=== PATIENT | female | born 1930 | race Caucasian/White ===

== ENCOUNTER 2016-12-03 18:12 | Inpatient (IN) | payer MEDICARE ==
[~2016-12-03] VITALS: Ht 160 cm; Wt 62.6 kg
[~2016-12-03 18:12] MED LIST: ACET325T9 PO; ALEVE; ARICEPT; ASPI325T8 PO; ATOR10TA PO; BISA10SU55 RC; CAPS42.510 TP; CELEXA PO; CITA20TA5 PO; CITA20TA9 PO; CLOB15CR TP; CLOB30CR TP; DOCU100C28 PO; ERYT1OIN6 OU; FLUC100T4 PO; GUAI600T47 PO; HALO100A2 IM; HALO2ORA IM; HALO2TAB PO; HALO5VIA2 IJ; IPRA3AMP IH; LEVO500T59 PO; LORA0.5T PO; LORA2DIS2 TP; LORAZEPAM TOP; LOSA100T6 PO; LOSA25TA PO; LOSA50TA2 PO; LOSA50TA6 PO; MAG30ORA PO; MAG355OR30 PO; MAGN2400 PO; METH29OI TP; MIRT15TA3 PO; MORP20SY SL; NA P133E6 RC; NAPR500T8 PO; NYST15PO9 TP; OLAN2.5T3 PO; ONDA4TAB7 PO; OSEL30CA PO; OXYC-327 PO; POLY119P4 PO; POTA20TA12 PO; POTA20TA4 PO; PRAVASTATIN; PROM25SU2 RC; QUET25TA PO; RISP0.5T3 PO; RIVA1PAT23 TP; RIVA3CAP2 PO; TOLT4CAP PO; VENL150C PO; [UNRECOGNIZED DRUG - OTHER] RC; [UNRECOGNIZED DRUG - OTHER] TOP; [UNRECOGNIZED DRUG - REMARK]
[2016-12-03] MEDS ORDERED: HALOPERIDOL LACT 5 MG/ML VIAL. IM ONE (18:50)
--- NOTE | 2016-12-03 18:52 | PHYS DOC ---
General Chief Complaint: ALTERED MENTAL STATUS Stated Complaint: [facility] Time Seen by MD: 18:19 Source: patient, half-way records Exam Limitations: clinical condition Problems: History of Present Illness Initial Comments Pt is 86/F h/o psychosis/dementia to ED for medical clearance and [facility] admission. [place] records indicate pt recently yelling, hitting, pinching, scratching at staff/ other residents and herself. Pt sx worsening past week or so, resistant to redirection/treatments. [facility] records indicate pt proposes possible risk to herself and others and is an elopement risk. DNR noted. Pt uncooperative in ED yelling out will not allow vital signs or submit specimens initially. Timing/Duration: 1 week, getting worse Severity: severe Modifying Factors: improves with other Associated Symptoms: denies symptoms Allergies: Coded Allergies: Tetracycline (Verified Allergy, Intermediate, 05/21/14) sulfamethoxazole (Verified Allergy, Intermediate, 05/21/14) trimethoprim (Verified Allergy, Intermediate, 05/21/14) Past Medical History Medical History: other (depression with psychotic features, grief reaction, alzheimer's, vascular dementia, delulsions, HTN, macular degeneration, GRAND TRAVERSE, OA, CKD, lichen sclerosis vulva, impulse control, anxiety, gait disturbance) Surgical History: noncontributory Social History Smoker: non-smoker Alcohol: none Drugs: none Review of Systems All Other Systems: Reviewed and Negative (See HPI, pt uncooperative requiring haldol no reliable complete ROS in ED) Physical Exam General Appearance: mild distress (anxious, agitated, yelling out) Eyes: bilateral eye normal inspection, bilateral eye PERRL, bilateral eye EOMI Ear, Nose, Throat: normal ENT inspection (GRAND TRAVERSE), normal pharynx Neck: non-tender, supple Respiratory: normal breath sounds, no respiratory distress Cardiovascular: normal peripheral pulses, regular rate, rhythm Gastrointestinal: non tender, soft Back: no CVA tenderness, no vertebral tenderness Extremities: non-tender, normal inspection Neurologic/Psychiatric: final armature tester II-XII nml as tested, no motor/sensory deficits, alert, other (confused/agitated, noncooperative) Skin: normal color, warm/dry Orders, Labs, Meds EKG not completed in ED due to pt noncompliance initially. Haldol 5mg IM, pt did over an hour relax and begin to allow VS/labs. Pt will have prolonged ED course due to compliance initially, lab delay as well. Labs unremarkable Cr 1.2 UA pending 2042: Pt medically stable for [facility] admission Dr Levi is accepting. Departure Time of Disposition: 20:42 Disposition: 09 ADMITTED INPATIENT Diagnosis: dementia w/behavior disturbance Condition: STABLE Additional Instructions: Medically stable for [facility] admission Dr Levi is accepting. JOSEPHINE AMIN DO December 03, 2016 18:52
[2016-12-03 20:15] LABS: BASO # 0.1 x10^3/uL (0.0-0.2); BASO % 1 % (0-3); EOS # 0.1 x10^3/uL (0.0-0.7); EOS % 1 % (0-3); HEMOGLOBIN 13.2 g/dL (12.0-15.5); LYMPH # 2.2 x10^3/uL (1.0-4.8); LYMPH % 30 % (24-48); MEAN CORPUSCULAR HEMOGLOBIN 30 pg (25-35); MEAN CORPUSCULAR HGB CONC 34 g/dL (31-37); MEAN CORPUSCULAR VOLUME 90 fL (79-100); MONO # 0.6 x10^3/uL (0.0-1.1); MONO % 8 % (0-9); NEUT # 4.5 x10^3uL (1.8-7.7); NEUT % 60 % (31-73); PLATELET COUNT 278 x10^3/uL (140-400); RED BLOOD COUNT 4.35 x10^6/uL (3.50-5.40); RED CELL DISTRIBUTION WIDTH 13.6 % (11.5-14.5); WHITE BLOOD COUNT 7.5 x10^3/uL (4.0-11.0)
[2016-12-03 20:22] LABS: ALBUMIN 3.3 g/dL (3.4-5.0); ALBUMIN/GLOBULIN RATIO 1.1 (1.0-1.7); CREATININE 1.2 mg/dL (0.6-1.0); GFR 42.4; MAGNESIUM 1.9 mg/dL (1.8-2.4); POTASSIUM 3.7 mmol/L (3.5-5.1); TOTAL BILIRUBIN 0.5 mg/dL (0.2-1.0); TOTAL PROTEIN 6.4 g/dL (6.4-8.2)
[2016-12-03 20:52] LABS: BILIRUBIN,URINE NEG (NEG); CLARITY,URINE CLEAR; COLOR,URINE YELLOW; GLUCOSE,URINE NEG (NEG)
[2016-12-03 20:53] LABS: BACTERIA,URINE 0 /HPF (0-FEW); NITRITE,URINE NEG (NEG); SQUAMOUS EPITHELIAL CELL,UR MOD /LPF; UROBILINOGEN,URINE 1 mg/dL (0.2 mg/dL)
[2016-12-03] MEDS ORDERED: NA P RC (21:25)
[2016-12-03] MEDS ORDERED: NYST15CR TP (21:25)
[2016-12-03] MEDS ORDERED: DEXT1CAP PO (21:25)
[2016-12-03] MEDS ORDERED: OXYC5CAP PO (21:25)
[2016-12-03] MEDS ORDERED: TRAZ50TA15 PO (21:25)
[2016-12-03] MEDS ORDERED: CITA10TA4 PO (21:25)
[2016-12-03] MEDS ORDERED: BUPR150T15 PO (21:25)
[2016-12-03] MEDS ORDERED: OLAN5TAB5 PO (21:25)
[2016-12-03] MEDS ORDERED: OXYC5TAB PO (21:25)
[2016-12-03] MEDS ORDERED: POLY119P4 PO (21:25)
[2016-12-03] MEDS ORDERED: LOPE2TAB56 PO (21:25)
[2016-12-03] MEDS: MIRTAZAPINE 15 MG TABLET PO SCH (22:13)
[2016-12-03] MEDS: DEXTROMETHORPHAN HBR/QUINIDINE 1 CAPSULE. PO SCH (22:13)
[2016-12-04 05:44] VITALS: BP 140/90
[2016-12-04] MEDS ORDERED: ONDANSETRON ODT 4 MG TAB.RAPDIS PO PRN (06:45)
[2016-12-04] MEDS ORDERED: CAPSAICIN 0.025% TOPICAL CREAM 60GM TUBE. TP PRN (06:45)
[2016-12-04] MEDS ORDERED: MAGNESIUM HYDROXIDE 2,400 MG/30 ML ORAL.SUSP. PO PRN (06:45)
[2016-12-04] MEDS ORDERED: METHYL SALICYLATE/MENTHOL TOPICAL OINTMENT 29GM TUBE. TP PRN (06:45)
[2016-12-04] MEDS ORDERED: LORazepam TOPICAL 0.5 MG/ML GEL TP PRN (06:45)
[2016-12-04] MEDS ORDERED: oxyCODONE IR 5 MG TABLET PO PRN (06:45)
[2016-12-04] MEDS ORDERED: LOPERAMIDE 2 MG CAPSULE PO PRN (06:45)
--- NOTE | 2016-12-04 08:31 | ACF ---
Admission Criteria Forms MENTAL STATUS CHANGE Clinical Indications for Inpatient Care (Place 'X' for any and all applicable criteria): Ongoing inpatient care may be needed for 1 or more of the following(1)(2)(3)(5)( 6): [ ]I. Suspected serious etiology (eg, medical disorder, PACKING ATTENDANT event) of altered mental status [X]II. Danger to self or others not manageable at lower level of care [ ]III. Grave disability (eg, inability to perform self care necessary at lower level of care) [ ]IV. Agitation or inappropriate behavior interfering with care for primary condition (eg, attempting to discontinue lines or drains prematurely, unable to cooperate with respiratory care) [ ]V. Delirium [A] [D][E] as described by 1 or more of the following(26): [ ]a) Delirium due to alcohol or sedative [F] withdrawal [ ]b) Delirium of uncertain etiology that has not responded to appropriate empiric treatment [ ]c) Delirium that prevents performance of a life-sustaining function (eg, feeding or hydrating oneself) [ ]. General contraindications and/or Inappropriate clinical situations for Observational Care in patients with Mental Status Change, when ANY ONE of the following is required: [ ]a) Prediction of prolongation of LOS based on ANY ONE of the following may be considered as a contraindication for observational care 2, 3, 4, 5, 6, 7, 8, 9, 10, 11 [ ]i) Age > 65 yrs. [ ]ii) Patient arriving by ambulance [ ]iii) Patient with high acuity [ ]iv) Patient requiring vital sign monitoring [ ]v) Patient on IV medication [ ]b) Systolic blood pressures greater than or equal to 180mmHg 3, 12 [ ]c) Patient with altered mental status including delirium and other alteration of consciousness, (3) [ ]d) Patient whose discharge disposition will be to a snf home or rehabilitation home should not be managed in Emergency Department Observation Unit. CMS rule requires 3 days hospital stay before such placement.3,13 [ ]e) Patient with failure to thrive due to broad array of etiologies 3,16,17 [ ]f) Inability to ambulate 3,14 Extended stay beyond goal length of stay for the primary condition may be needed until ALL of the following are present(3)(5): [ ]a) Underlying medical etiology of mental status change is absent, or has been established and adequately treated [ ]b) Danger to self or others is absent or manageable at lower level of care. [ ]c) Behavior crisis management, including physical or chemical restraints, is not required or available at lower level of car [ ]d) Substance or alcohol withdrawal is absent or manageable at lower level of care. [ ]e) Behavioral symptoms (eg, agitation, somnolence, inappropriate behavior) are absent, or are manageable at lower level of care. The original [facility] [employer] content created by [facility] has been revised. The portions of the content which have been revised are identified through the use of italic text or in bold, and [facility] has neither reviewed nor approved the modified material. All other unmodified content is copyright [facility]. Please see references footnoted in the original [facility] edition 2016 Admission Criteria Met?: Yes MATI COSBY December 04, 2016 08:31
[2016-12-04] MEDS ORDERED: CITALOPRAM 10 MG TABLET. PO SCH (09:00)
[2016-12-04] MEDS: POLYETHYLENE GLYCOL 3350 17 GM PACKET. PO SCH (09:28)
[2016-12-04] MEDS: DEXTROMETHORPHAN HBR/QUINIDINE 1 CAPSULE. PO SCH ×2 (09:33→20:26)
[2016-12-04] MEDS: LOSARTAN 50 MG TABLET. PO SCH (09:33)
[2016-12-04] MEDS: buPROPion XL 150 MG TAB.ER.24H PO SCH (09:34)
[2016-12-04] MEDS: oxyCODONE IR 5 MG TABLET PO SCH ×3 (09:34→19:50)
[2016-12-04] MEDS: NYSTATIN 100,000 UNIT/GM TOPICAL CREAM 15GM TUBE. TP SCH ×2 (09:36→22:59)
[2016-12-04] MEDS: BISACODYL 10 MG SUPP.RECT RC SCH (09:37)
[2016-12-04 13:57] LABS: THYROID STIM HORMONE (TSH) 1.429 uIU/mL (0.358-3.740)
--- NOTE | 2016-12-04 15:47 | HP ---
ADMIT DATE: 12/04/2016 REASON FOR ADMISSION TO SENIOR BEHAVIORAL UNIT: This is the sixth admission to the Senior Behavioral Unit for this 86-year-old female who resides at [facility]. Yesterday at lunch, she has became combative with her cares, disruptive, yelling, and hitting whoever came near her so that they could not eat. Dr. Levi was called. She was given Ativan, but was taken to her room and came right back out swinging at people. She also had a dose of Zyprexa. PAST MEDICAL HISTORY: Dementia with behavior disturbance, muscle weakness, macular degeneration with legal blindness, bilateral sensorineural deafness, osteoarthritis, chronic kidney disease, lichen sclerosus ___, depression, anxiety, and dementia. She also had some issues with insomnia. PAST SURGICAL HISTORY: Unknown. ALLERGIES: TETRACYCLINE, SULFAMETHOXAZOLE, AND TRIMETHOPRIM. MEDICATIONS: Reviewed aside from the recent p.r.n. the patient has had no other medication changes. SOCIAL HISTORY: She is a resident of [facility]. No history of smoking, alcohol, or recreational drug use. REVIEW OF SYSTEMS: The patient complains of being tired; otherwise, does not have a whole lot to say. OBJECTIVE: VITAL SIGNS: Blood pressure 140/90, pulse 64, respirations 20, pulse ox 98% on room air, temperature is 97.4, height 63 inches, and weight 136.13 pounds. GENERAL: Elderly female who is sleepy. HEENT: Her hearing is impaired. Her vision also impaired. The vision that she has is blurry and she looks out of the side of her eyes with her head tilted to try to see things. She can identify things after looking at them for a while. Nose is patent. Her throat was clear. NECK: Supple without adenopathy. LUNGS: Clear to auscultation. CARDIOVASCULAR: Regular rhythm and rate with a 2/6 short systolic murmur. ABDOMEN: Soft and nontender. EXTREMITIES: Without edema. She does have a fine tremor of her hands. I could not take her through the cranial nerves because of her vision; at least the vision and hearing are impaired. Overall, muscle tone is weak. SKIN: She has extensive bruising on her arms. LABORATORY DATA: Normal CBC. Chemistry, creatinine 1.2 and GFR 42.4. Normal TSH and iron is 27. Urinalysis 1-4 white cells and contaminated specimen. Mental state is sleepy, but calm and cooperative ASSESSMENT: 1. Dementia with behavior disturbance. 2. Macular degeneration with legal blindness. 3. Significant fall risk. 4. Weakness. 5. Major depressive disorder. 6. Iron deficiency. 7. Chronic kidney disease stage 3. PLAN: Follow along with Dr. Levi. Start her on iron supplements and wait for other results. RAFI NOGUEIRA DO DR: TIFFANIE/amanda JOB#: [id number] / [id number]
[2016-12-04 16:23] VITALS: BP_SYST 116
[2016-12-04] MEDS: PRENATAL MULTIVITAMIN TABLET. PO SCH (16:30)
[2016-12-04 18:08] LABS: T3 TOTAL 98 ng/dL (71-180)
[2016-12-04 19:13] LABS: THYROXINE 6.8 ug/dL (4.5-12.0)
[2016-12-04] MEDS: MIRTAZAPINE 15 MG TABLET PO SCH (19:50)
[2016-12-04] MEDS: DOCUSATE SODIUM 100 MG CAPSULE PO SCH (20:26)
--- NOTE | 2016-12-04 21:07 | PDOC ---
Exam Maxx Demential Exam: Maxx Note: Please also refer to the separate dictated note~for this date of service dictated separately.~Patient seen individually. Discussed the patient with Nursing staff reviewed the chart.~Reviewed interim history and current functioning. Reviewed vital signs,~Labs/ Radiology~and current medications noted below. Continue current treatment with the changes noted in the dictated addendum note Assessment: Vital Signs: Vital Signs Date Time Temp Pulse Resp B/P (MAP) Pulse Ox O2 Delivery O2 Flow Rate FiO2 12/04/16 19:50 20 96 12/04/16 16:23 98.0 79 116/ 12/04/16 09:34 Room Air Labs: Laboratory Tests Test 12/03/16 21:57 Thyroxine (T4) 6.8 ug/dL (4.5-12.0) Total Triiodothyronine (TT3) 98 ng/dL (71-180) RPR Titer Additional Testing Pending Current Medications: Meds: Current Medications Haloperidol Lactate (Haldol) 5 mg 1X ONCE IM Last administered on 12/03/16 18 :56; Start 12/03/16 at 18:50; Stop 12/03/16 at 18:51; Status DC Acetaminophen (Tylenol) 650 mg PRN Q6HRS PRN PO PAIN / TEMP; Start 12/03/16 at 20:45 Bupropion HCl (Wellbutrin Xl) 150 mg DAILY PO Last administered on 12/04/16 09 :34; Start 12/04/16 at 09:00 Citalopram Hydrobromide (CeleXA) 15 mg DAILY PO Last administered on 12/04/16 09:32; Start 12/04/16 at 09:00; Stop 12/04/16 at 17:51; Status DC Mirtazapine (Remeron) 15 mg HS PO Last administered on 12/04/16 19:50; Start 12/03/16 at 22:45 Olanzapine (Zyprexa Zydis) 2.5 mg DAILY PO Last administered on 12/04/16 09:35 ; Start 12/04/16 at 09:00 Trazodone HCl (Desyrel) 50 mg QHS PO ; Start 12/04/16 at 22:45 Olanzapine (Zyprexa Zydis) 5 mg PRN Q2HR PRN PO Psych Last administered on 12/04 18:36; Start 12/03/16 at 22:00 Bisacodyl (Dulcolax Supp) 10 mg Q4DAYS RC Last administered on 12/04/16 09:37 ; Start 12/04/16 at 09:00 Docusate Sodium (Colace) 200 mg HS PO Last administered on 12/04/16 20:26; Start 12/04/16 at 21:00 Losartan Potassium (Cozaar) 50 mg DAILY PO Last administered on 12/04/16 09:33 ; Start 12/04/16 at 09:00 Multi-Ingredient Ointment (Analgesic [place]) 1 mariaa PRN QID PRN TP MUSCLE PAIN; Start 12/04/16 at 06:45 Nystatin (Mycostatin) 1 mariaa BID TP Last administered on 12/04/16 09:36; Start 12/04/16 at 09:00 Nystatin (Nystop) 1 mariaa PRN BID PRN TP SKIN PROTECTION; Start 12/04/16 at 06:45 Oxycodone HCl (Roxicodone) 5 mg TID PO Last administered on 12/04/16 19:50; Start 12/04/16 at 09:00 Polyethylene Glycol (miraLAX) 17 gm DAILY PO Last administered on 12/04/16 09: 28; Start 12/04/16 at 09:00 Capsaicin (Zostrix) 1 mariaa PRN Q8HRS PRN TP PAIN; Start 12/04/16 at 06:45 Loperamide HCl (Imodium) 2 mg PRN Q2HR PRN PO DIARRHEA; Start 12/04/16 at 06:45 Lorazepam (Ativan) 0.5 mg PRN Q2HR PRN TP ANXIETY / AGITATION; Start 12/04/16 at 06:45; Stop 12/04/16 at 13:56; Status DC Magnesium Hydroxide (Milk Of Magnesia) 2,400 mg PRN QHS PRN PO CONSTIPATION; Start 12/04/16 at 06:45 Morphine Sulfate (Roxanol Conc) 10 mg PRN Q4HRS PRN SL PAIN; Start 12/04/16 at 06:45 Ondansetron HCl (Zofran Odt) 4 mg PRN Q4HRS PRN PO NAUSEA; Start 12/04/16 at 06 :45 Oxycodone HCl (Roxicodone) 5 mg PRN TID PRN PO PAIN; Start 12/04/16 at 06:45 Lorazepam (Ativan) 0.5 mg PRN Q2HR PRN TP ANXIETY / AGITATION; Start 12/05/16 at 14:00 Prenat Multivit/ [place]/Iron/Folic Ac (Multivitamin ) 1 tab DAILYBFRSUP PO Last administered on 12/04/16t 16:30; Start 12/04/16 at 17:00 Escitalopram Oxalate (Lexapro) 5 mg DAILY PO ; Start 12/05/16 at 09:00 Active Scripts Active Reported Oxycodone Hcl 5 Mg Capsule 5 Mg PO PRN TID PRN Anti-Diarrhea (Loperamide Hcl) 2 Mg Tablet 2 Mg PO PRN Q2HR PRN Gnp Enema Ready To Use (Na Phos,M-B/Na Phos,Di-Ba) 133 Ml Enema 133 Ml RC PRN DAILY PRN Nystatin 15 Gm Cream..g. 1 Mariaa TP BID Trazodone Hcl 50 Mg Tablet 50 Mg PO QHS Miralax (Polyethylene Glycol 3350) 119 Gm Powder 17 Gm PO DAILY Oxycodone Hcl 5 Mg Tablet 5 Mg PO TID Zyprexa Zydis (Olanzapine) 5 Mg Tab.rapdis 2.5 Mg PO DAILY Nuedexta 20-10 Mg Capsule (Dextromethorphan Hbr/Quinidine) 1 Each Capsule 1 Cap PO BID Citalopram Hbr (Citalopram Hydrobromide) 10 Mg Tablet 15 Mg PO DAILY Wellbutrin Xl (Bupropion Hcl) 150 Mg Tab.er.24h 150 Mg PO DAILY Lorazepam 2 Mg/1 Ml Disp.syrin 0.5 Mg TP PRN Q2HR PRN Morphine Sulfate 20 Mg/1 Ml Syringe 10 Mg SL PRN Q4HRS PRN Dulcolax (Bisacodyl) 10 Mg Supp.rect 10 Mg RC Q4DAYS PRN Nystatin 15 Gm Powder 1 Mariaa TP PRN BID PRN Capsaicin 42.5 Gm Cream..g. 1 Mariaa TP PRN Q8HRS PRN Analgesic [place] (Methyl Salicylate/Menthol) 29 Gm Oint...g. 1 Mariaa TP PRN QID PRN Mirtazapine 15 Mg Tablet 15 Mg PO HS Losartan Potassium 50 Mg Tablet 50 Mg PO DAILY Docusate Sodium 100 Mg Capsule 200 Mg PO HS Milk Of Magnesia (Magnesium Hydroxide) 2,400 Mg/10 Ml Oral.susp 2,400 Mg PO PRN QHS PRN Zofran (Ondansetron Hcl) 4 Mg Tablet 4 Mg PO PRN Q4HRS PRN KISHORE JI MD December 04, 2016 21:07
[2016-12-04] MEDS: traZODone 50 MG TABLET. PO SCH (22:57)
[2016-12-05 02:08] LABS: HEMOGLOBIN A1C 5.3 % (4.8-5.6)
[2016-12-05 06:09] VITALS: BP 136/94
[2016-12-05] MEDS: POLYETHYLENE GLYCOL 3350 17 GM PACKET. PO SCH (08:22)
[2016-12-05] MEDS: buPROPion XL 150 MG TAB.ER.24H PO SCH (08:23)
[2016-12-05] MEDS: oxyCODONE IR 5 MG TABLET PO SCH ×3 (08:24→20:18)
[2016-12-05] MEDS: DEXTROMETHORPHAN HBR/QUINIDINE 1 CAPSULE. PO SCH ×2 (08:25→20:19)
[2016-12-05] MEDS: NYSTATIN 100,000 UNIT/GM TOPICAL CREAM 15GM TUBE. TP SCH ×2 (08:27→20:20)
[2016-12-05] MEDS: ESCITALOPRAM 5 MG TABLET PO SCH (08:28)
[2016-12-05] MEDS: LOSARTAN 50 MG TABLET. PO SCH (08:32)
[2016-12-05] MEDS: BISACODYL 10 MG SUPP.RECT RC SCH (08:33)
[2016-12-05] MEDS: CHOLECALCIFEROL (VITAMIN D3) 1,000 UNIT TABLET PO SCH ×2 (11:40→16:42)
[2016-12-05] MEDS: CYANOCOBALAMIN (VITAMIN B-12) 1,000 MCG TABLET. PO SCH (11:40)
[2016-12-05 16:32] VITALS: BP 135/69
[2016-12-05] MEDS: PRENATAL MULTIVITAMIN TABLET. PO SCH (16:42)
[2016-12-05] MEDS: DOCUSATE SODIUM 100 MG CAPSULE PO SCH (20:18)
[2016-12-05] MEDS: traZODone 50 MG TABLET. PO SCH (20:18)
[2016-12-05] MEDS: MIRTAZAPINE 15 MG TABLET PO SCH (20:18)
--- NOTE | 2016-12-05 20:56 | PDOC ---
Exam Maxx Demential Exam: Maxx Note: Please also refer to the separate dictated note~for this date of service dictated separately.~Patient seen individually. Discussed the patient with Nursing staff reviewed the chart.~Reviewed interim history and current functioning. Reviewed vital signs,~Labs/ Radiology~and current medications noted below. Continue current treatment with the changes noted in the dictated addendum note Assessment: Vital Signs: Vital Signs Date Time Temp Pulse Resp B/P (MAP) Pulse Ox O2 Delivery O2 Flow Rate FiO2 12/05/16 16:32 97.1 80 18 135/69 (91) 95 12/04/16 09:34 Room Air I&O Intake and Output 12/05/16 07:00 Intake Total 600 ml Balance 600 ml Intake Oral 600 ml # Bowel Movements 1 Current Medications: Meds: Current Medications Haloperidol Lactate (Haldol) 5 mg 1X ONCE IM Last administered on 12/03/16 18 :56; Start 12/03/16 at 18:50; Stop 12/03/16 at 18:51; Status DC Acetaminophen (Tylenol) 650 mg PRN Q6HRS PRN PO PAIN / TEMP; Start 12/03/16 at 20:45 Bupropion HCl (Wellbutrin Xl) 150 mg DAILY PO Last administered on 12/05/16 08 :23; Start 12/04/16 at 09:00 Citalopram Hydrobromide (CeleXA) 15 mg DAILY PO Last administered on 12/04/16 09:32; Start 12/04/16 at 09:00; Stop 12/04/16 at 17:51; Status DC Mirtazapine (Remeron) 15 mg HS PO Last administered on 12/04/16 19:50; Start 12/03/16 at 22:45 Olanzapine (Zyprexa Zydis) 2.5 mg DAILY PO Last administered on 12/05/16 08:23 ; Start 12/04/16 at 09:00 Trazodone HCl (Desyrel) 50 mg QHS PO Last administered on 12/04/16 22:57; Start 12/04/16 at 22:45 Olanzapine (Zyprexa Zydis) 5 mg PRN Q2HR PRN PO Psych Last administered on 12/05 14:28; Start 12/03/16 at 22:00 Bisacodyl (Dulcolax Supp) 10 mg Q4DAYS RC Last administered on 12/04/16 09:37 ; Start 12/04/16 at 09:00 Docusate Sodium (Colace) 200 mg HS PO Last administered on 12/04/16 20:26; Start 12/04/16 at 21:00 Losartan Potassium (Cozaar) 50 mg DAILY PO Last administered on 12/05/16 08:32 ; Start 12/04/16 at 09:00 Multi-Ingredient Ointment (Analgesic [place]) 1 mariaa PRN QID PRN TP MUSCLE PAIN; Start 12/04/16 at 06:45 Nystatin (Mycostatin) 1 mariaa BID TP Last administered on 12/05/16 08:27; Start 12/04/16 at 09:00 Nystatin (Nystop) 1 mariaa PRN BID PRN TP SKIN PROTECTION; Start 12/04/16 at 06:45 Oxycodone HCl (Roxicodone) 5 mg TID PO Last administered on 12/05/16 14:28; Start 12/04/16 at 09:00 Polyethylene Glycol (miraLAX) 17 gm DAILY PO Last administered on 12/05/16 08: 22; Start 12/04/16 at 09:00 Capsaicin (Zostrix) 1 mariaa PRN Q8HRS PRN TP PAIN; Start 12/04/16 at 06:45 Loperamide HCl (Imodium) 2 mg PRN Q2HR PRN PO DIARRHEA; Start 12/04/16 at 06:45 Lorazepam (Ativan) 0.5 mg PRN Q2HR PRN TP ANXIETY / AGITATION; Start 12/04/16 at 06:45; Stop 12/04/16 at 13:56; Status DC Magnesium Hydroxide (Milk Of Magnesia) 2,400 mg PRN QHS PRN PO CONSTIPATION; Start 12/04/16 at 06:45 Morphine Sulfate (Roxanol Conc) 10 mg PRN Q4HRS PRN SL PAIN; Start 12/04/16 at 06:45 Ondansetron HCl (Zofran Odt) 4 mg PRN Q4HRS PRN PO NAUSEA; Start 12/04/16 at 06 :45 Oxycodone HCl (Roxicodone) 5 mg PRN TID PRN PO PAIN; Start 12/04/16 at 06:45 Lorazepam (Ativan) 0.5 mg PRN Q2HR PRN TP ANXIETY / AGITATION; Start 12/05/16 at 14:00 Prenat Multivit/ [place]/Iron/Folic Ac (Multivitamin ) 1 tab DAILYBFRSUP PO Last administered on 12/04/16 16:30; Start 12/04/16 at 17:00 Escitalopram Oxalate (Lexapro) 5 mg DAILY PO Last administered on 12/05/16 08: 28; Start 12/05/16 at 09:00 Vitamin D (Vitamin D3) 1,000 unit BIDACLD PO Last administered on 12/05/16 11: 40; Start 12/05/16 at 11:30 Cyanocobalamin (Vitamin B-12) 1,000 mcg DAILYBFRLUN PO Last administered on 11:40; Start 12/05/16 at 11:30 Active Scripts Active Reported Oxycodone Hcl 5 Mg Capsule 5 Mg PO PRN TID PRN Anti-Diarrhea (Loperamide Hcl) 2 Mg Tablet 2 Mg PO PRN Q2HR PRN Gnp Enema Ready To Use (Na Phos,M-B/Na Phos,Di-Ba) 133 Ml Enema 133 Ml RC PRN DAILY PRN Nystatin 15 Gm Cream..g. 1 Mariaa TP BID Trazodone Hcl 50 Mg Tablet 50 Mg PO QHS Miralax (Polyethylene Glycol 3350) 119 Gm Powder 17 Gm PO DAILY Oxycodone Hcl 5 Mg Tablet 5 Mg PO TID Zyprexa Zydis (Olanzapine) 5 Mg Tab.rapdis 2.5 Mg PO DAILY Nuedexta 20-10 Mg Capsule (Dextromethorphan Hbr/Quinidine) 1 Each Capsule 1 Cap PO BID Citalopram Hbr (Citalopram Hydrobromide) 10 Mg Tablet 15 Mg PO DAILY Wellbutrin Xl (Bupropion Hcl) 150 Mg Tab.er.24h 150 Mg PO DAILY Lorazepam 2 Mg/1 Ml Disp.syrin 0.5 Mg TP PRN Q2HR PRN Morphine Sulfate 20 Mg/1 Ml Syringe 10 Mg SL PRN Q4HRS PRN Dulcolax (Bisacodyl) 10 Mg Supp.rect 10 Mg RC Q4DAYS PRN Nystatin 15 Gm Powder 1 Mariaa TP PRN BID PRN Capsaicin 42.5 Gm Cream..g. 1 Mariaa TP PRN Q8HRS PRN Analgesic [place] (Methyl Salicylate/Menthol) 29 Gm Oint...g. 1 Mariaa TP PRN QID PRN Mirtazapine 15 Mg Tablet 15 Mg PO HS Losartan Potassium 50 Mg Tablet 50 Mg PO DAILY Docusate Sodium 100 Mg Capsule 200 Mg PO HS Milk Of Magnesia (Magnesium Hydroxide) 2,400 Mg/10 Ml Oral.susp 2,400 Mg PO PRN QHS PRN Zofran (Ondansetron Hcl) 4 Mg Tablet 4 Mg PO PRN Q4HRS PRN Diagnosis: Problems: (1) Dementia with behavioral problem (2) Dementia (3) Major depression (4) Cognitive impairment (5) Suicidal ideation (6) Anxiety state KISHORE JI MD December 05, 2016 20:56
[2016-12-06 06:46] VITALS: BP 141/83
[2016-12-06] MEDS: LOSARTAN 50 MG TABLET. PO SCH (09:00)
[2016-12-06] MEDS: buPROPion XL 150 MG TAB.ER.24H PO SCH (09:00)
[2016-12-06] MEDS: POLYETHYLENE GLYCOL 3350 17 GM PACKET. PO SCH (09:00)
[2016-12-06] MEDS: oxyCODONE IR 5 MG TABLET PO SCH ×3 (09:00→18:48)
[2016-12-06] MEDS: DEXTROMETHORPHAN HBR/QUINIDINE 1 CAPSULE. PO SCH ×2 (09:00→18:49)
[2016-12-06] MEDS: BISACODYL 10 MG SUPP.RECT RC SCH (09:00)
[2016-12-06] MEDS: NYSTATIN 100,000 UNIT/GM TOPICAL CREAM 15GM TUBE. TP SCH ×2 (09:00→18:50)
[2016-12-06] MEDS: ESCITALOPRAM 5 MG TABLET PO SCH (09:00)
[2016-12-06] MEDS: CHOLECALCIFEROL (VITAMIN D3) 1,000 UNIT TABLET PO SCH ×2 (12:16→15:58)
[2016-12-06] MEDS: CYANOCOBALAMIN (VITAMIN B-12) 1,000 MCG TABLET. PO SCH (12:16)
[2016-12-06] MEDS: PRENATAL MULTIVITAMIN TABLET. PO SCH (15:58)
[2016-12-06 16:10] VITALS: BP 138/91
[2016-12-06] MEDS: traZODone 50 MG TABLET. PO SCH (18:48)
[2016-12-06] MEDS: DOCUSATE SODIUM 100 MG CAPSULE PO SCH (18:48)
[2016-12-06] MEDS: MIRTAZAPINE 15 MG TABLET PO SCH (18:50)
--- NOTE | 2016-12-06 19:45 | PDOC ---
Exam Maxx Demential Exam: Maxx Note: Please also refer to the separate dictated note~for this date of service dictated separately.~Patient seen individually. Discussed the patient with Nursing staff reviewed the chart.~Reviewed interim history and current functioning. Reviewed vital signs,~Labs/ Radiology~and current medications noted below. Continue current treatment with the changes noted in the dictated addendum note Assessment: Vital Signs: Vital Signs Date Time Temp Pulse Resp B/P (MAP) Pulse Ox O2 Delivery O2 Flow Rate FiO2 12/06/16 18:48 20 12/06/16 16:10 97.7 96 138/91 (107) 95 12/05/16 21:30 Room Air I&O Intake and Output 12/06/16 07:00 Intake Total 840 ml Balance 840 ml Intake Oral 840 ml Current Medications: Meds: Current Medications Haloperidol Lactate (Haldol) 5 mg 1X ONCE IM Last administered on 12/03/16 18 :56; Start 12/03/16 at 18:50; Stop 12/03/16 at 18:51; Status DC Acetaminophen (Tylenol) 650 mg PRN Q6HRS PRN PO PAIN / TEMP; Start 12/03/16 at 20:45 Bupropion HCl (Wellbutrin Xl) 150 mg DAILY PO Last administered on 12/05/16 08 :23; Start 12/04/16 at 09:00 Citalopram Hydrobromide (CeleXA) 15 mg DAILY PO Last administered on 12/04/16 09:32; Start 12/04/16 at 09:00; Stop 12/04/16 at 17:51; Status DC Mirtazapine (Remeron) 15 mg HS PO Last administered on 12/06/16 18:50; Start 12/03/16 at 22:45 Olanzapine (Zyprexa Zydis) 2.5 mg DAILY PO Last administered on 12/05/16 08:23 ; Start 12/04/16 at 09:00 Trazodone HCl (Desyrel) 50 mg QHS PO Last administered on 12/06/16 18:48; Start 12/04/16 at 22:45 Olanzapine (Zyprexa Zydis) 5 mg PRN Q2HR PRN PO Psych Last administered on 12/05 14:28; Start 12/03/16 at 22:00 Bisacodyl (Dulcolax Supp) 10 mg Q4DAYS RC Last administered on 12/04/16 09:37 ; Start 12/04/16 at 09:00 Docusate Sodium (Colace) 200 mg HS PO Last administered on 12/06/16 18:48; Start 12/04/16 at 21:00 Losartan Potassium (Cozaar) 50 mg DAILY PO Last administered on 12/05/16 08:32 ; Start 12/04/16 at 09:00 Multi-Ingredient Ointment (Analgesic [place]) 1 mariaa PRN QID PRN TP MUSCLE PAIN; Start 12/04/16 at 06:45 Nystatin (Mycostatin) 1 mariaa BID TP Last administered on 12/06/16 18:50; Start 12/04/16 at 09:00 Nystatin (Nystop) 1 mariaa PRN BID PRN TP SKIN PROTECTION; Start 12/04/16 at 06:45 Oxycodone HCl (Roxicodone) 5 mg TID PO Last administered on 12/06/16 18:48; Start 12/04/16 at 09:00 Polyethylene Glycol (miraLAX) 17 gm DAILY PO Last administered on 12/05/16 08: 22; Start 12/04/16 at 09:00 Capsaicin (Zostrix) 1 mariaa PRN Q8HRS PRN TP PAIN; Start 12/04/16 at 06:45 Loperamide HCl (Imodium) 2 mg PRN Q2HR PRN PO DIARRHEA; Start 12/04/16 at 06:45 Lorazepam (Ativan) 0.5 mg PRN Q2HR PRN TP ANXIETY / AGITATION; Start 12/04/16 at 06:45; Stop 12/04/16 at 13:56; Status DC Magnesium Hydroxide (Milk Of Magnesia) 2,400 mg PRN QHS PRN PO CONSTIPATION; Start 12/04/16 at 06:45 Morphine Sulfate (Roxanol Conc) 10 mg PRN Q4HRS PRN SL PAIN; Start 12/04/16 at 06:45 Ondansetron HCl (Zofran Odt) 4 mg PRN Q4HRS PRN PO NAUSEA; Start 12/04/16 at 06 :45 Oxycodone HCl (Roxicodone) 5 mg PRN TID PRN PO PAIN; Start 12/04/16 at 06:45 Lorazepam (Ativan) 0.5 mg PRN Q2HR PRN TP ANXIETY / AGITATION; Start 12/05/16 at 14:00 Prenat Multivit/ [employer] Equipment [employer]/Iron/Folic Ac (Multivitamin ) 1 tab DAILYBFRSUP PO Last administered on 12/06/16 15:58; Start 12/04/16 at 17:00 Escitalopram Oxalate (Lexapro) 5 mg DAILY PO Last administered on 12/05/16 08: 28; Start 12/05/16 at 09:00 Vitamin D (Vitamin D3) 1,000 unit BIDACLD PO Last administered on 12/06/16 15: 58; Start 12/05/16 at 11:30 Cyanocobalamin (Vitamin B-12) 1,000 mcg DAILYBFRLUN PO Last administered on 12:16; Start 12/05/16 at 11:30 Active Scripts Active Reported Oxycodone Hcl 5 Mg Capsule 5 Mg PO PRN TID PRN Anti-Diarrhea (Loperamide Hcl) 2 Mg Tablet 2 Mg PO PRN Q2HR PRN Gnp Enema Ready To Use (Na Phos,M-B/Na Phos,Di-Ba) 133 Ml Enema 133 Ml RC PRN DAILY PRN Nystatin 15 Gm Cream..g. 1 Mariaa TP BID Trazodone Hcl 50 Mg Tablet 50 Mg PO QHS Miralax (Polyethylene Glycol 3350) 119 Gm Powder 17 Gm PO DAILY Oxycodone Hcl 5 Mg Tablet 5 Mg PO TID Zyprexa Zydis (Olanzapine) 5 Mg Tab.rapdis 2.5 Mg PO DAILY Nuedexta 20-10 Mg Capsule (Dextromethorphan Hbr/Quinidine) 1 Each Capsule 1 Cap PO BID Citalopram Hbr (Citalopram Hydrobromide) 10 Mg Tablet 15 Mg PO DAILY Wellbutrin Xl (Bupropion Hcl) 150 Mg Tab.er.24h 150 Mg PO DAILY Lorazepam 2 Mg/1 Ml Disp.syrin 0.5 Mg TP PRN Q2HR PRN Morphine Sulfate 20 Mg/1 Ml Syringe 10 Mg SL PRN Q4HRS PRN Dulcolax (Bisacodyl) 10 Mg Supp.rect 10 Mg RC Q4DAYS PRN Nystatin 15 Gm Powder 1 Mariaa TP PRN BID PRN Capsaicin 42.5 Gm Cream..g. 1 Mariaa TP PRN Q8HRS PRN Analgesic [place] (Methyl Salicylate/Menthol) 29 Gm Oint...g. 1 Mariaa TP PRN QID PRN Mirtazapine 15 Mg Tablet 15 Mg PO HS Losartan Potassium 50 Mg Tablet 50 Mg PO DAILY Docusate Sodium 100 Mg Capsule 200 Mg PO HS Milk Of Magnesia (Magnesium Hydroxide) 2,400 Mg/10 Ml Oral.susp 2,400 Mg PO PRN QHS PRN Zofran (Ondansetron Hcl) 4 Mg Tablet 4 Mg PO PRN Q4HRS PRN KISHORE JI MD December 06, 2016 19:45
[2016-12-07 06:12] VITALS: BP 166/82
[2016-12-07] MEDS: buPROPion XL 150 MG TAB.ER.24H PO SCH (08:32)
[2016-12-07] MEDS: ESCITALOPRAM 5 MG TABLET PO SCH (08:32)
[2016-12-07] MEDS: oxyCODONE IR 5 MG TABLET PO SCH ×3 (08:32→19:57)
[2016-12-07] MEDS: LOSARTAN 50 MG TABLET. PO SCH (08:33)
[2016-12-07] MEDS: POLYETHYLENE GLYCOL 3350 17 GM PACKET. PO SCH (08:33)
[2016-12-07] MEDS: DEXTROMETHORPHAN HBR/QUINIDINE 1 CAPSULE. PO SCH ×2 (08:35→19:59)
[2016-12-07] MEDS: NYSTATIN 100,000 UNIT/GM TOPICAL CREAM 15GM TUBE. TP SCH ×3 (08:35→19:59)
[2016-12-07] MEDS: BISACODYL 10 MG SUPP.RECT RC SCH (09:00)
[2016-12-07] MEDS: CYANOCOBALAMIN (VITAMIN B-12) 1,000 MCG TABLET. PO SCH (12:38)
[2016-12-07] MEDS: CHOLECALCIFEROL (VITAMIN D3) 1,000 UNIT TABLET PO SCH ×2 (12:38→16:15)
[2016-12-07] MEDS: PRENATAL MULTIVITAMIN TABLET. PO SCH (12:40)
--- NOTE | 2016-12-07 15:57 | HP ---
ADMIT DATE: 12/04/2016 PSYCHIATRIC ADMISSION HISTORY/EVALUATION This is a late entry for date of service 12/03/2016. I had previously dictated this note but it cannot be traced in the transcriptions and re-dictating it. IDENTIFYING DATA: The patient is an 86-year-old female referred from [facility] by Dr. Sánchez, her primary care physician on account of worsening confusion, agitation, being combative with cares, disruptive, yelling, tried to hit whoever would come near her. She started telling people they could not eat and needed to get out of her house. Nursing staff from the [facility] had called me approximately 4 times during the day on 12/03/2016. We attempted adjustments in her psychotropics, added p.r.n. Zyprexa amongst other things, asked to check a UA but she failed all of this. Behaviors were progressively worsening, unmanageable, potentially dangerous and she was admitted for inpatient psychiatric stabilization. I have followed her at the [facility] in the past. CHIEF COMPLAINT: "No." The patient responded after I asked her what prompted her to come here. She was quite oblivious the way she was. HISTORY OF PRESENT ILLNESS: The patient has a history of dementia, Alzheimer's vascular type. She has been residing at the [facility] and I have followed her there from a psychiatric standpoint. She has had prior inpatient psychiatric hospitalization with us at [place] as well. Over the last several days, the patient has been increasingly agitated, combative with cares, disruptive, yelling, trying to hit whoever would come near her, started telling people they could not eat and to get out of her house. Ativan was attempted, morphine, then Zyprexa. She was swinging at staff, non-redirectable, repeatedly coming out of the room aggressive. She is legally blind and this further complicated her presentation, but she was quite psychotic. PAST PSYCHIATRIC HISTORY: As above. No clear history of bipolar disorder, suicidal or homicidal ideation. PAST MEDICAL HISTORY: She is legally blind, muscle weakness, hypertension and hyperlipidemia. Diet is regular. She takes her medications crushed. She ambulates with a wheelchair. CODE STATUS: DNR. ALLERGIES: TETRACYCLINE, SULFA AND TRIMETHOPRIM. CURRENT PSYCHOTROPICS: Nuedexta 1 capsule b.i.d., Wellbutrin XL 150 mg a day, Zyprexa p.r.n., Remeron 15 mg at bedtime and Lexapro 5 mg a day. FAMILY HISTORY: Noncontributory. SOCIAL HISTORY: No history of alcohol, drug abuse, physical, sexual or elder abuse. She is not known to be a perpetrator. MENTAL STATUS EXAMINATION: The patient seen individually. She is oriented to herself, anxious, restless, with marked mood lability. Insight, judgment, recent and remote memory, attention, concentration, fund of knowledge poor, consistent with her diagnosis. VITAL SIGNS: Temperature 97.8, blood pressure 140/82, respirations 14 and pulse 76. REVIEW OF SYSTEMS: Legally blind, impaired ambulation. No CV, , pulmonary system symptoms on review. IMPRESSION: Major neurocognitive disorder, Alzheimer, vascular with depression, delusion, behavioral disturbance; anxiety disorder, unspecified; impulse control disorder, unspecified; rest diagnoses as above. PLAN: Admit to the geropsychiatry unit at [facility]. I will see the patient daily individually from a psychiatric standpoint, medical followup with Dr. Brush/Dr. Burger. Continue the patient on her current psychotropics, observe baseline, add olanzapine p.r.n., adjust further as clinically indicated, consider Depakote as a mood stabilizer. May need to increase Lexapro before that. KISHORE JI MD DR: JAILENE/amanda JOB#: [id number] / [id number]
[2016-12-07 16:49] VITALS: BP 129/64
[2016-12-07] MEDS: DOCUSATE SODIUM 100 MG CAPSULE PO SCH (19:57)
[2016-12-07] MEDS: traZODone 50 MG TABLET. PO SCH (19:57)
[2016-12-07] MEDS: MIRTAZAPINE 15 MG TABLET PO SCH (19:58)
--- NOTE | 2016-12-07 19:59 | PDOC ---
Exam Maxx Demential Exam: Maxx Note: Please also refer to the separate dictated note~for this date of service dictated separately.~Patient seen individually. Discussed the patient with Nursing staff reviewed the chart.~Reviewed interim history and current functioning. Reviewed vital signs,~Labs/ Radiology~and current medications noted below. Continue current treatment with the changes noted in the dictated addendum note Assessment: Vital Signs: Vital Signs Date Time Temp Pulse Resp B/P (MAP) Pulse Ox O2 Delivery O2 Flow Rate FiO2 12/07/16 16:49 97.8 89 18 129/64 (85) 96 Room Air I&O Intake and Output 12/07/16 07:00 Intake Total 600 ml Balance 600 ml Intake Oral 600 ml Current Medications: Meds: Current Medications Haloperidol Lactate (Haldol) 5 mg 1X ONCE IM Last administered on 12/03/16 18 :56; Start 12/03/16 at 18:50; Stop 12/03/16 at 18:51; Status DC Acetaminophen (Tylenol) 650 mg PRN Q6HRS PRN PO PAIN / TEMP; Start 12/03/16 at 20:45 Bupropion HCl (Wellbutrin Xl) 150 mg DAILY PO Last administered on 12/07/16 08 :32; Start 12/04/16 at 09:00 Citalopram Hydrobromide (CeleXA) 15 mg DAILY PO Last administered on 12/04/16 09:32; Start 12/04/16 at 09:00; Stop 12/04/16 at 17:51; Status DC Mirtazapine (Remeron) 15 mg HS PO Last administered on 12/06/16 18:50; Start 12/03/16 at 22:45 Olanzapine (Zyprexa Zydis) 2.5 mg DAILY PO Last administered on 12/07/16 13:34 ; Start 12/04/16 at 09:00 Trazodone HCl (Desyrel) 50 mg QHS PO Last administered on 12/06/16 18:48; Start 12/04/16 at 22:45 Olanzapine (Zyprexa Zydis) 5 mg PRN Q2HR PRN PO Psych Last administered on 12/05 14:28; Start 12/03/16 at 22:00 Bisacodyl (Dulcolax Supp) 10 mg Q4DAYS RC Last administered on 12/04/16 09:37 ; Start 12/04/16 at 09:00 Docusate Sodium (Colace) 200 mg HS PO Last administered on 12/06/16 18:48; Start 12/04/16 at 21:00 Losartan Potassium (Cozaar) 50 mg DAILY PO Last administered on 12/07/16 08:33 ; Start 12/04/16 at 09:00 Multi-Ingredient Ointment (Analgesic [place]) 1 mariaa PRN QID PRN TP MUSCLE PAIN; Start 12/04/16 at 06:45 Nystatin (Mycostatin) 1 mariaa BID TP Last administered on 12/06/16 18:50; Start 12/04/16 at 09:00 Nystatin (Nystop) 1 mariaa PRN BID PRN TP SKIN PROTECTION; Start 12/04/16 at 06:45 Oxycodone HCl (Roxicodone) 5 mg TID PO Last administered on 12/07/16 12:39; Start 12/04/16 at 09:00 Polyethylene Glycol (miraLAX) 17 gm DAILY PO Last administered on 12/07/16 08: 33; Start 12/04/16 at 09:00 Capsaicin (Zostrix) 1 mariaa PRN Q8HRS PRN TP PAIN; Start 12/04/16 at 06:45 Loperamide HCl (Imodium) 2 mg PRN Q2HR PRN PO DIARRHEA; Start 12/04/16 at 06:45 Lorazepam (Ativan) 0.5 mg PRN Q2HR PRN TP ANXIETY / AGITATION; Start 12/04/16 at 06:45; Stop 12/04/16 at 13:56; Status DC Magnesium Hydroxide (Milk Of Magnesia) 2,400 mg PRN QHS PRN PO CONSTIPATION; Start 12/04/16 at 06:45 Morphine Sulfate (Roxanol Conc) 10 mg PRN Q4HRS PRN SL PAIN; Start 12/04/16 at 06:45 Ondansetron HCl (Zofran Odt) 4 mg PRN Q4HRS PRN PO NAUSEA; Start 12/04/16 at 06 :45 Oxycodone HCl (Roxicodone) 5 mg PRN TID PRN PO PAIN; Start 12/04/16 at 06:45 Lorazepam (Ativan) 0.5 mg PRN Q2HR PRN TP ANXIETY / AGITATION; Start 12/05/16 at 14:00 Prenat Multivit/ Reiki Practitioner/Iron/Folic Ac (Multivitamin ) 1 tab DAILYBFRSUP PO Last administered on 12/07/16 12:40; Start 12/04/16 at 17:00 Escitalopram Oxalate (Lexapro) 5 mg DAILY PO Last administered on 12/07/16 08: 32; Start 12/05/16 at 09:00; Stop 12/07/16 at 15:30; Status DC Vitamin D (Vitamin D3) 1,000 unit BIDACLD PO Last administered on 12/07/16 12: 38; Start 12/05/16 at 11:30 Cyanocobalamin (Vitamin B-12) 1,000 mcg DAILYBFRLUN PO Last administered on 12:38; Start 12/05/16 at 11:30 Escitalopram Oxalate (Lexapro) 10 mg DAILY PO ; Start 12/08/16 at 09:00 Active Scripts Active Reported Oxycodone Hcl 5 Mg Capsule 5 Mg PO PRN TID PRN Anti-Diarrhea (Loperamide Hcl) 2 Mg Tablet 2 Mg PO PRN Q2HR PRN Gnp Enema Ready To Use (Na Phos,M-B/Na Phos,Di-Ba) 133 Ml Enema 133 Ml RC PRN DAILY PRN Nystatin 15 Gm Cream..g. 1 Mariaa TP BID Trazodone Hcl 50 Mg Tablet 50 Mg PO QHS Miralax (Polyethylene Glycol 3350) 119 Gm Powder 17 Gm PO DAILY Oxycodone Hcl 5 Mg Tablet 5 Mg PO TID Zyprexa Zydis (Olanzapine) 5 Mg Tab.rapdis 2.5 Mg PO DAILY Nuedexta 20-10 Mg Capsule (Dextromethorphan Hbr/Quinidine) 1 Each Capsule 1 Cap PO BID Citalopram Hbr (Citalopram Hydrobromide) 10 Mg Tablet 15 Mg PO DAILY Wellbutrin Xl (Bupropion Hcl) 150 Mg Tab.er.24h 150 Mg PO DAILY Lorazepam 2 Mg/1 Ml Disp.syrin 0.5 Mg TP PRN Q2HR PRN Morphine Sulfate 20 Mg/1 Ml Syringe 10 Mg SL PRN Q4HRS PRN Dulcolax (Bisacodyl) 10 Mg Supp.rect 10 Mg RC Q4DAYS PRN Nystatin 15 Gm Powder 1 Mariaa TP PRN BID PRN Capsaicin 42.5 Gm Cream..g. 1 Mariaa TP PRN Q8HRS PRN Analgesic [place] (Methyl Salicylate/Menthol) 29 Gm Oint...g. 1 Mariaa TP PRN QID PRN Mirtazapine 15 Mg Tablet 15 Mg PO HS Losartan Potassium 50 Mg Tablet 50 Mg PO DAILY Docusate Sodium 100 Mg Capsule 200 Mg PO HS Milk Of Magnesia (Magnesium Hydroxide) 2,400 Mg/10 Ml Oral.susp 2,400 Mg PO PRN QHS PRN Zofran (Ondansetron Hcl) 4 Mg Tablet 4 Mg PO PRN Q4HRS PRN KISHORE JI MD December 07, 2016 19:59
--- NOTE | 2016-12-07 23:47 | PN ---
DATE: 12/06/2016 PSYCHIATRIC PROGRESS NOTE This is a late entry of 12/06/2016 covers elements not covered manage initial note. SUBJECTIVE: The patient was seen individually evening of 12/06/2016. Discussed with nursing staff, reviewed the chart. Per nursing report, the patient remains anxious, restless, refused her a.m. medications. REVIEW OF SYSTEMS: Ambulation impaired in a wheelchair. No CV, , Pulmonary, eye, ENT system symptoms on review. MENTAL STATUS EXAM: Oriented to herself. Insight, judgment, recent and remote memory, attention, concentration, fund of knowledge poor, consistent with her diagnosis mentioned in my initial note. PLAN: Increase Lexapro from 5 to 10 mg a day. Continue Nuedexta, Wellbutrin, Zyprexa p.r.n., Remeron unchanged for now. MAN Valentin JI MD DR: JAILENE/amanda JOB#: [id number] / [id number]
--- NOTE | 2016-12-07 23:49 | PN ---
DATE: 12/05/2016 PSYCHIATRIC PROGRESS NOTE This is late entry of 12/05/2016, covers elements not covered in my initial note. SUBJECTIVE: The patient did reasonably well morning of 12/05/2016, at afternoon 2:30 p.m. she was yelling, received Zyprexa at 2:30 p.m., seemed to help. REVIEW OF SYSTEMS: No CV, , pulmonary, eye system symptoms on review. Reliability poor. Gait unsteady in her wheelchair. MENTAL STATUS EXAMINATION: Oriented to herself. Insight, judgment, recent and remote memory, attention, concentration, fund of knowledge poor, consistent with her diagnosis mentioned in my initial note. Plan: Continue Nuedexta, Wellbutrin and Zyprexa p.r.n., Remeron and Lexapro for now, may need to increase the Lexapro, consider Depakote as a mood stabilizer if mood lability persists. MAN Valentin JI MD DR: JAILENE/amanda JOB#: [id number] / [id number]
[2016-12-08 06:14] VITALS: BP 122/93
--- NOTE | 2016-12-08 08:05 | PN ---
DATE: 12/04/2016 This is a late entry for 12/04/2016 and covers the elements not covered in my initial note. SUBJECTIVE: The patient remains confused, anxious, restless, yelling, scratching at staff. She is legally blind and this further compromises her confusion. She is quite sedated in the afternoon, did have a bowel movement. REVIEW OF SYSTEMS: No CV, , pulmonary, eye system symptoms on review. She is legally blind. Reliability poor. MENTAL STATUS EXAM: Oriented to herself. Insight, judgment, recent and remote memory, attention, concentration, fund of knowledge poor, consistent with her diagnosis. IMPRESSION: Major neurocognitive disorder, Alzheimer, vascular with depression, delusion, behavioral disturbance; anxiety disorder, unspecified; impulse control disorder, unspecified. Rest diagnoses unchanged from my initial note. PLAN: Continue nuedexta 1 b.i.d., Wellbutrin-XL 150 mg a day, change Celexa to Lexapro 5 mg a day, continue Zyprexa p.r.n., start Remeron 7.5 at bedtime to help with insomnia and anxiety, continue Zyprexa p.r.n. Adjust further as clinically indicated reviewed. Reviewed drug interactions and risk, benefit ratio of current combination. KISHORE JI MD DR: JAILENE/amanda JOB#: [id number] / [id number]
[2016-12-08] MEDS: DEXTROMETHORPHAN HBR/QUINIDINE 1 CAPSULE. PO SCH ×2 (09:39→20:57)
[2016-12-08] MEDS: buPROPion XL 150 MG TAB.ER.24H PO SCH (09:39)
[2016-12-08 09:40] LABS: BASO # 0.1 x10^3/uL (0.0-0.2); BASO % 1 % (0-3); EOS # 0.3 x10^3/uL (0.0-0.7); EOS % 4 % (0-3); HEMATOCRIT 44.1 % (36.0-47.0); HEMOGLOBIN 14.9 g/dL (12.0-15.5); LYMPH # 1.5 x10^3/uL (1.0-4.8); LYMPH % 21 % (24-48); MEAN CORPUSCULAR HEMOGLOBIN 31 pg (25-35); MEAN CORPUSCULAR HGB CONC 34 g/dL (31-37); MEAN CORPUSCULAR VOLUME 90 fL (79-100); MONO # 0.3 x10^3/uL (0.0-1.1); MONO % 5 % (0-9); NEUT % 70 % (31-73); PLATELET COUNT 294 x10^3/uL (140-400); RED BLOOD COUNT 4.89 x10^6/uL (3.50-5.40); RED CELL DISTRIBUTION WIDTH 14.1 % (11.5-14.5); WHITE BLOOD COUNT 7.2 x10^3/uL (4.0-11.0)
[2016-12-08] MEDS: LOSARTAN 50 MG TABLET. PO SCH (09:40)
[2016-12-08] MEDS: POLYETHYLENE GLYCOL 3350 17 GM PACKET. PO SCH (09:40)
[2016-12-08] MEDS: ESCITALOPRAM 10 MG TABLET. PO SCH (09:48)
[2016-12-08] MEDS: CYANOCOBALAMIN (VITAMIN B-12) 1,000 MCG TABLET. PO SCH (09:48)
[2016-12-08] MEDS: PRENATAL MULTIVITAMIN TABLET. PO SCH (09:48)
[2016-12-08] MEDS: BISACODYL 10 MG SUPP.RECT RC SCH (09:48)
[2016-12-08] MEDS: CHOLECALCIFEROL (VITAMIN D3) 1,000 UNIT TABLET PO SCH ×2 (09:48→14:50)
[2016-12-08] MEDS: oxyCODONE IR 5 MG TABLET PO SCH ×3 (09:48→21:00)
[2016-12-08] MEDS: NYSTATIN 100,000 UNIT/GM TOPICAL CREAM 15GM TUBE. TP SCH ×2 (09:49→21:56)
[2016-12-08 09:51] LABS: ALBUMIN 3.7 g/dL (3.4-5.0); CALCIUM 9.3 mg/dL (8.5-10.1); CREATININE 1.1 mg/dL (0.6-1.0); GFR 46.9; MAGNESIUM 2.2 mg/dL (1.8-2.4); POTASSIUM 3.7 mmol/L (3.5-5.1); TOTAL BILIRUBIN 0.3 mg/dL (0.2-1.0); TOTAL PROTEIN 7.4 g/dL (6.4-8.2)
[2016-12-08 16:27] VITALS: BP 120/71
[2016-12-08] MEDS: MIRTAZAPINE 15 MG TABLET PO SCH (20:56)
[2016-12-08] MEDS: traZODone 50 MG TABLET. PO SCH (20:56)
[2016-12-08] MEDS: DOCUSATE SODIUM 100 MG CAPSULE PO SCH (20:56)
[2016-12-08] MEDS: NYSTATIN TOPICAL POWDER 15GM BOTTLE. TP PRN ×2 (21:00→21:55)
--- NOTE | 2016-12-08 21:06 | PDOC ---
Exam Maxx Demential Exam: Maxx Note: Please also refer to the separate dictated note~for this date of service dictated separately.~Patient seen individually. Discussed the patient with Nursing staff reviewed the chart.~Reviewed interim history and current functioning. Reviewed vital signs,~Labs/ Radiology~and current medications noted below. Continue current treatment with the changes noted in the dictated addendum note Assessment: Vital Signs: Vital Signs Date Time Temp Pulse Resp B/P (MAP) Pulse Ox O2 Delivery O2 Flow Rate FiO2 12/08/16 21:00 97 12/08/16 16:27 98.0 89 18 120/71 (87) 12/07/16 21:00 Room Air I&O Intake and Output 12/08/16 07:00 Intake Total 600 ml Balance 600 ml Intake Oral 600 ml Labs: Laboratory Tests Test 12/08/16 09:23 White Blood Count 7.2 x10^3/uL (4.0-11.0) Red Blood Count 4.89 x10^6/uL (3.50-5.40) Hemoglobin 14.9 g/dL (12.0-15.5) Hematocrit 44.1 % (36.0-47.0) Mean Corpuscular Volume 90 fL (79-100) Mean Corpuscular Hemoglobin 31 pg (25-35) Mean Corpuscular Hemoglobin Concent 34 g/dL (31-37) Red Cell Distribution Width 14.1 % (11.5-14.5) Platelet Count 294 x10^3/uL (140-400) Neutrophils (%) (Auto) 70 % (31-73) Lymphocytes (%) (Auto) 21 % (24-48) L Monocytes (%) (Auto) 5 % (0-9) Eosinophils (%) (Auto) 4 % (0-3) H Basophils (%) (Auto) 1 % (0-3) Neutrophils # (Auto) 5.0 x10^3uL (1.8-7.7) Lymphocytes # (Auto) 1.5 x10^3/uL (1.0-4.8) Monocytes # (Auto) 0.3 x10^3/uL (0.0-1.1) Eosinophils # (Auto) 0.3 x10^3/uL (0.0-0.7) Basophils # (Auto) 0.1 x10^3/uL (0.0-0.2) Sodium Level 143 mmol/L (136-145) Potassium Level 3.7 mmol/L (3.5-5.1) Chloride Level 105 mmol/L (98-107) Carbon Dioxide Level 31 mmol/L (21-32) Anion Gap 7 (6-14) Blood Urea Nitrogen 22 mg/dL (7-20) H Creatinine 1.1 mg/dL (0.6-1.0) H Estimated GFR (Cockcroft-Gault) 46.9 BUN/Creatinine Ratio 20 (6-20) Glucose Level 169 mg/dL (70-99) H Calcium Level 9.3 mg/dL (8.5-10.1) Magnesium Level 2.2 mg/dL (1.8-2.4) Total Bilirubin 0.3 mg/dL (0.2-1.0) Aspartate Amino Transferase (AST) 17 U/L (15-37) Alanine Aminotransferase (ALT) 20 U/L (14-59) Alkaline Phosphatase 98 U/L (46-116) Total Protein 7.4 g/dL (6.4-8.2) Albumin 3.7 g/dL (3.4-5.0) Albumin/Globulin Ratio 1.0 (1.0-1.7) Current Medications: Meds: Current Medications Haloperidol Lactate (Haldol) 5 mg 1X ONCE IM Last administered on 12/03/16 18 :56; Start 12/03/16 at 18:50; Stop 12/03/16 at 18:51; Status DC Acetaminophen (Tylenol) 650 mg PRN Q6HRS PRN PO PAIN / TEMP; Start 12/03/16 at 20:45 Bupropion HCl (Wellbutrin Xl) 150 mg DAILY PO Last administered on 12/08/16 09 :39; Start 12/04/16 at 09:00 Citalopram Hydrobromide (CeleXA) 15 mg DAILY PO Last administered on 12/04/16 09:32; Start 12/04/16 at 09:00; Stop 12/04/16 at 17:51; Status DC Mirtazapine (Remeron) 15 mg HS PO Last administered on 12/08/16 20:56; Start 12/03/16 at 22:45 Olanzapine (Zyprexa Zydis) 2.5 mg DAILY PO Last administered on 12/08/16 09:40 ; Start 12/04/16 at 09:00 Trazodone HCl (Desyrel) 50 mg QHS PO Last administered on 12/08/16 20:56; Start 12/04/16 at 22:45 Olanzapine (Zyprexa Zydis) 5 mg PRN Q2HR PRN PO Psych Last administered on 12/05 14:28; Start 12/03/16 at 22:00 Bisacodyl (Dulcolax Supp) 10 mg Q4DAYS RC Last administered on 12/08/16 09:48 ; Start 12/04/16 at 09:00 Docusate Sodium (Colace) 200 mg HS PO Last administered on 12/08/16 20:56; Start 12/04/16 at 21:00 Losartan Potassium (Cozaar) 50 mg DAILY PO Last administered on 12/08/16 09:40 ; Start 12/04/16 at 09:00 Multi-Ingredient Ointment (Analgesic [place]) 1 mariaa PRN QID PRN TP MUSCLE PAIN; Start 12/04/16 at 06:45 Nystatin (Mycostatin) 1 mariaa BID TP Last administered on 12/08/16 09:49; Start 12/04/16 at 09:00 Nystatin (Nystop) 1 mariaa PRN BID PRN TP SKIN PROTECTION Last administered on 21:00; Start 12/04/16 at 06:45 Oxycodone HCl (Roxicodone) 5 mg TID PO Last administered on 12/08/16 21:00; Start 12/04/16 at 09:00 Polyethylene Glycol (miraLAX) 17 gm DAILY PO Last administered on 12/08/16 09: 40; Start 12/04/16 at 09:00 Capsaicin (Zostrix) 1 mariaa PRN Q8HRS PRN TP PAIN; Start 12/04/16 at 06:45 Loperamide HCl (Imodium) 2 mg PRN Q2HR PRN PO DIARRHEA; Start 12/04/16 at 06:45 Lorazepam (Ativan) 0.5 mg PRN Q2HR PRN TP ANXIETY / AGITATION; Start 12/04/16 at 06:45; Stop 12/04/16 at 13:56; Status DC Magnesium Hydroxide (Milk Of Magnesia) 2,400 mg PRN QHS PRN PO CONSTIPATION; Start 12/04/16 at 06:45 Morphine Sulfate (Roxanol Conc) 10 mg PRN Q4HRS PRN SL PAIN; Start 12/04/16 at 06:45 Ondansetron HCl (Zofran Odt) 4 mg PRN Q4HRS PRN PO NAUSEA; Start 12/04/16 at 06 :45 Oxycodone HCl (Roxicodone) 5 mg PRN TID PRN PO PAIN; Start 12/04/16 at 06:45 Lorazepam (Ativan) 0.5 mg PRN Q2HR PRN TP ANXIETY / AGITATION; Start 12/05/16 at 14:00 Prenat Multivit/ [place]/Iron/Folic Ac (Multivitamin ) 1 tab DAILYBFRSUP PO Last administered on 12/08/16 09:48; Start 12/04/16 at 17:00 Escitalopram Oxalate (Lexapro) 5 mg DAILY PO Last administered on 12/07/16 08: 32; Start 12/05/16 at 09:00; Stop 12/07/16 at 15:30; Status DC Vitamin D (Vitamin D3) 1,000 unit BIDACLD PO Last administered on 12/08/16 14: 50; Start 12/05/16 at 11:30 Cyanocobalamin (Vitamin B-12) 1,000 mcg DAILYBFRLUN PO Last administered on 09:48; Start 12/05/16 at 11:30 Escitalopram Oxalate (Lexapro) 10 mg DAILY PO Last administered on 12/08/16 09 :48; Start 12/08/16 at 09:00 Trazodone HCl (Desyrel) 50 mg PRN 1X PRN PO INSOMNIA; Start 12/08/16 at 18:30 Divalproex Sodium (Depakote Sprinkles) 125 mg BID92 PO ; Start 12/09/16 at 09:00 Active Scripts Active Reported Oxycodone Hcl 5 Mg Capsule 5 Mg PO PRN TID PRN Anti-Diarrhea (Loperamide Hcl) 2 Mg Tablet 2 Mg PO PRN Q2HR PRN Gnp Enema Ready To Use (Na Phos,M-B/Na Phos,Di-Ba) 133 Ml Enema 133 Ml RC PRN DAILY PRN Nystatin 15 Gm Cream..g. 1 Mariaa TP BID Trazodone Hcl 50 Mg Tablet 50 Mg PO QHS Miralax (Polyethylene Glycol 3350) 119 Gm Powder 17 Gm PO DAILY Oxycodone Hcl 5 Mg Tablet 5 Mg PO TID Zyprexa Zydis (Olanzapine) 5 Mg Tab.rapdis 2.5 Mg PO DAILY Nuedexta 20-10 Mg Capsule (Dextromethorphan Hbr/Quinidine) 1 Each Capsule 1 Cap PO BID Citalopram Hbr (Citalopram Hydrobromide) 10 Mg Tablet 15 Mg PO DAILY Wellbutrin Xl (Bupropion Hcl) 150 Mg Tab.er.24h 150 Mg PO DAILY Lorazepam 2 Mg/1 Ml Disp.syrin 0.5 Mg TP PRN Q2HR PRN Morphine Sulfate 20 Mg/1 Ml Syringe 10 Mg SL PRN Q4HRS PRN Dulcolax (Bisacodyl) 10 Mg Supp.rect 10 Mg RC Q4DAYS PRN Nystatin 15 Gm Powder 1 Mariaa TP PRN BID PRN Capsaicin 42.5 Gm Cream..g. 1 Mariaa TP PRN Q8HRS PRN Analgesic [place] (Methyl Salicylate/Menthol) 29 Gm Oint...g. 1 Mariaa TP PRN QID PRN Mirtazapine 15 Mg Tablet 15 Mg PO HS Losartan Potassium 50 Mg Tablet 50 Mg PO DAILY Docusate Sodium 100 Mg Capsule 200 Mg PO HS Milk Of Magnesia (Magnesium Hydroxide) 2,400 Mg/10 Ml Oral.susp 2,400 Mg PO PRN QHS PRN Zofran (Ondansetron Hcl) 4 Mg Tablet 4 Mg PO PRN Q4HRS PRN KISHORE JI MD December 08, 2016 21:06
[2016-12-08] MEDS: traZODone 50 MG TABLET. PO PRN (23:19)
[2016-12-09] MEDS: MORPHINE SULFATE 20 MG/ML CONC SOLUTION. SL PRN (03:20)
[2016-12-09 06:12] VITALS: BP 143/76
--- NOTE | 2016-12-09 07:38 | PN ---
DATE: 12/07/2016 PSYCHIATRIC PROGRESS NOTE This is late entry of 12/07/2016, covers elements not covered in my initial note. SUBJECTIVE: Overall, per nursing report, the patient needs encouragement to take her a.m. medications, slept reasonably well, 7-1/4 hours previous night, was anxious, restless in the morning, did better after lunch, appetite is fair, late in the evening she was yelling. REVIEW OF SYSTEMS: Poor vision, ambulation impaired. No CV, , pulmonary system symptoms on review. MENTAL STATUS EXAMINATION: Oriented to herself. Insight, judgment, recent and remote memory, attention, concentration, fund of knowledge poor, consistent with her diagnosis mentioned in my initial note. PLAN: Continue current psychotropics, Nuedexta, Wellbutrin XL, Zyprexa p.r.n., Remeron, Lexapro, trazodone, Ativan, we will start low dose Depakote Sprinkles 125 b.i.d., 9 and 2, labs level in 3 days. KISHORE JI MD DR: JAILENE/amanda JOB#: [id number] / [id number]
[2016-12-09] MEDS: BISACODYL 10 MG SUPP.RECT RC SCH (11:00)
[2016-12-09] MEDS: oxyCODONE IR 5 MG TABLET PO SCH ×3 (11:54→20:49)
[2016-12-09] MEDS: DIVALPROEX 125 MG CAP.SPRINK PO SCH ×2 (11:54→12:05)
[2016-12-09] MEDS: POLYETHYLENE GLYCOL 3350 17 GM PACKET. PO SCH (11:59)
[2016-12-09] MEDS: DEXTROMETHORPHAN HBR/QUINIDINE 1 CAPSULE. PO SCH ×2 (11:59→20:47)
[2016-12-09] MEDS: NYSTATIN 100,000 UNIT/GM TOPICAL CREAM 15GM TUBE. TP SCH ×2 (11:59→20:49)
[2016-12-09] MEDS: buPROPion XL 150 MG TAB.ER.24H PO SCH (11:59)
[2016-12-09] MEDS: ESCITALOPRAM 10 MG TABLET. PO SCH (11:59)
[2016-12-09] MEDS: LOSARTAN 50 MG TABLET. PO SCH (12:00)
[2016-12-09] MEDS: CHOLECALCIFEROL (VITAMIN D3) 1,000 UNIT TABLET PO SCH ×2 (12:02→17:41)
[2016-12-09] MEDS: CYANOCOBALAMIN (VITAMIN B-12) 1,000 MCG TABLET. PO SCH (12:03)
[2016-12-09 16:25] VITALS: BP 132/65
[2016-12-09] MEDS: PRENATAL MULTIVITAMIN TABLET. PO SCH (17:41)
[2016-12-09] MEDS: traZODone 50 MG TABLET. PO SCH (20:46)
[2016-12-09] MEDS: MIRTAZAPINE 15 MG TABLET PO SCH (20:46)
[2016-12-09] MEDS: DOCUSATE SODIUM 100 MG CAPSULE PO SCH (20:47)
--- NOTE | 2016-12-09 20:56 | PDOC ---
Exam Maxx Demential Exam: Maxx Note: Please also refer to the separate dictated note~for this date of service dictated separately.~Patient seen individually. Discussed the patient with Nursing staff reviewed the chart.~Reviewed interim history and current functioning. Reviewed vital signs,~Labs/ Radiology~and current medications noted below. Continue current treatment with the changes noted in the dictated addendum note Assessment: Vital Signs: Vital Signs Date Time Temp Pulse Resp B/P (MAP) Pulse Ox O2 Delivery O2 Flow Rate FiO2 12/09/16 20:49 96 Room Air 12/09/16 16:25 98.2 75 16 132/65 (87) I&O Intake and Output 12/09/16 07:00 Intake Total 1080 ml Balance 1080 ml Intake Oral 1080 ml # Voids 2 # Bowel Movements 2 Current Medications: Meds: Current Medications Haloperidol Lactate (Haldol) 5 mg 1X ONCE IM Last administered on 12/03/16 18 :56; Start 12/03/16 at 18:50; Stop 12/03/16 at 18:51; Status DC Acetaminophen (Tylenol) 650 mg PRN Q6HRS PRN PO PAIN / TEMP; Start 12/03/16 at 20:45 Bupropion HCl (Wellbutrin Xl) 150 mg DAILY PO Last administered on 12/09/16 11 :59; Start 12/04/16 at 09:00 Citalopram Hydrobromide (CeleXA) 15 mg DAILY PO Last administered on 12/04/16 09:32; Start 12/04/16 at 09:00; Stop 12/04/16 at 17:51; Status DC Mirtazapine (Remeron) 15 mg HS PO Last administered on 12/09/16 20:46; Start 12/03/16 at 22:45 Olanzapine (Zyprexa Zydis) 2.5 mg DAILY PO Last administered on 12/08/16 09:40 ; Start 12/04/16 at 09:00 Trazodone HCl (Desyrel) 50 mg QHS PO Last administered on 12/09/16 20:46; Start 12/04/16 at 22:45 Olanzapine (Zyprexa Zydis) 5 mg PRN Q2HR PRN PO Psych Last administered on 12/05 14:28; Start 12/03/16 at 22:00 Bisacodyl (Dulcolax Supp) 10 mg Q4DAYS RC Last administered on 12/08/16 09:48 ; Start 12/04/16 at 09:00 Docusate Sodium (Colace) 200 mg HS PO Last administered on 12/09/16 20:47; Start 12/04/16 at 21:00 Losartan Potassium (Cozaar) 50 mg DAILY PO Last administered on 12/09/16 12:00 ; Start 12/04/16 at 09:00 Multi-Ingredient Ointment (Analgesic [place]) 1 mariaa PRN QID PRN TP MUSCLE PAIN; Start 12/04/16 at 06:45 Nystatin (Mycostatin) 1 mariaa BID TP Last administered on 12/09/16 11:59; Start 12/04/16 at 09:00 Nystatin (Nystop) 1 mariaa PRN BID PRN TP SKIN PROTECTION Last administered on 21:55; Start 12/04/16 at 06:45 Oxycodone HCl (Roxicodone) 5 mg TID PO Last administered on 12/09/16 20:49; Start 12/04/16 at 09:00 Polyethylene Glycol (miraLAX) 17 gm DAILY PO Last administered on 12/09/16 11: 59; Start 12/04/16 at 09:00 Capsaicin (Zostrix) 1 mariaa PRN Q8HRS PRN TP PAIN; Start 12/04/16 at 06:45 Loperamide HCl (Imodium) 2 mg PRN Q2HR PRN PO DIARRHEA; Start 12/04/16 at 06:45 Lorazepam (Ativan) 0.5 mg PRN Q2HR PRN TP ANXIETY / AGITATION; Start 12/04/16 at 06:45; Stop 12/04/16 at 13:56; Status DC Magnesium Hydroxide (Milk Of Magnesia) 2,400 mg PRN QHS PRN PO CONSTIPATION; Start 12/04/16 at 06:45 Morphine Sulfate (Roxanol Conc) 10 mg PRN Q4HRS PRN SL PAIN Last administered on 12/09/16 03:20; Start 12/04/16 at 06:45 Ondansetron HCl (Zofran Odt) 4 mg PRN Q4HRS PRN PO NAUSEA; Start 12/04/16 at 06 :45 Oxycodone HCl (Roxicodone) 5 mg PRN TID PRN PO PAIN; Start 12/04/16 at 06:45 Lorazepam (Ativan) 0.5 mg PRN Q2HR PRN TP ANXIETY / AGITATION; Start 12/05/16 at 14:00 Prenat Multivit/ [place]/Iron/Folic Ac (Multivitamin ) 1 tab DAILYBFRSUP PO Last administered on 12/09/16 17:41; Start 12/04/16 at 17:00 Escitalopram Oxalate (Lexapro) 5 mg DAILY PO Last administered on 12/07/16 08: 32; Start 12/05/16 at 09:00; Stop 12/07/16 at 15:30; Status DC Vitamin D (Vitamin D3) 1,000 unit BIDACLD PO Last administered on 12/09/16 17: 41; Start 12/05/16 at 11:30 Cyanocobalamin (Vitamin B-12) 1,000 mcg DAILYBFRLUN PO Last administered on 12:03; Start 12/05/16 at 11:30 Escitalopram Oxalate (Lexapro) 10 mg DAILY PO Last administered on 12/09/16 11 :59; Start 12/08/16 at 09:00 Trazodone HCl (Desyrel) 50 mg PRN 1X PRN PO INSOMNIA Last administered on 23:19; Start 12/08/16 at 18:30 Divalproex Sodium (Depakote Sprinkles) 125 mg BID92 PO Last administered on 12:05; Start 12/09/16 at 09:00 Active Scripts Active Reported Oxycodone Hcl 5 Mg Capsule 5 Mg PO PRN TID PRN Anti-Diarrhea (Loperamide Hcl) 2 Mg Tablet 2 Mg PO PRN Q2HR PRN Gnp Enema Ready To Use (Na Phos,M-B/Na Phos,Di-Ba) 133 Ml Enema 133 Ml RC PRN DAILY PRN Nystatin 15 Gm Cream..g. 1 Mariaa TP BID Trazodone Hcl 50 Mg Tablet 50 Mg PO QHS Miralax (Polyethylene Glycol 3350) 119 Gm Powder 17 Gm PO DAILY Oxycodone Hcl 5 Mg Tablet 5 Mg PO TID Zyprexa Zydis (Olanzapine) 5 Mg Tab.rapdis 2.5 Mg PO DAILY Nuedexta 20-10 Mg Capsule (Dextromethorphan Hbr/Quinidine) 1 Each Capsule 1 Cap PO BID Citalopram Hbr (Citalopram Hydrobromide) 10 Mg Tablet 15 Mg PO DAILY Wellbutrin Xl (Bupropion Hcl) 150 Mg Tab.er.24h 150 Mg PO DAILY Lorazepam 2 Mg/1 Ml Disp.syrin 0.5 Mg TP PRN Q2HR PRN Morphine Sulfate 20 Mg/1 Ml Syringe 10 Mg SL PRN Q4HRS PRN Dulcolax (Bisacodyl) 10 Mg Supp.rect 10 Mg RC Q4DAYS PRN Nystatin 15 Gm Powder 1 Mariaa TP PRN BID PRN Capsaicin 42.5 Gm Cream..g. 1 Mariaa TP PRN Q8HRS PRN Analgesic [place] (Methyl Salicylate/Menthol) 29 Gm Oint...g. 1 Mariaa TP PRN QID PRN Mirtazapine 15 Mg Tablet 15 Mg PO HS Losartan Potassium 50 Mg Tablet 50 Mg PO DAILY Docusate Sodium 100 Mg Capsule 200 Mg PO HS Milk Of Magnesia (Magnesium Hydroxide) 2,400 Mg/10 Ml Oral.susp 2,400 Mg PO PRN QHS PRN Zofran (Ondansetron Hcl) 4 Mg Tablet 4 Mg PO PRN Q4HRS PRN KISHORE JI MD December 09, 2016 20:56
[2016-12-10] MEDS: MORPHINE SULFATE 20 MG/ML CONC SOLUTION. SL PRN (06:02)
[2016-12-10 06:12] VITALS: BP 163/97
--- NOTE | 2016-12-10 07:03 | PN ---
DATE: 12/08/2016 PSYCHIATRIC PROGRESS NOTE This is a late entry of 12/08/2016, covers elements not covered in my initial note. SUBJECTIVE: The patient remains confused, but had a good day per nursing report. She has been calm, cooperative, gets frustrated with her poor vision. She is legally blind, compliant with her medications, has been having intermittent hallucinations, confused, believed the TV was a quilt and she saw her dog on the floor when nothing was there. Slept 3-3/4 hours previous night. REVIEW OF SYSTEMS: Poor vision, impaired ambulation. No CV, , pulmonary system symptoms on review. MENTAL STATUS EXAM: Oriented to herself. Insight, judgment, recent and remote memory, attention, concentration, fund of knowledge poor, consistent with her diagnosis mentioned in my initial note. PLAN: Increase trazodone from 50 mg at bedtime at bedtime, november repeat x 1 p.r.n. insomnia. Maintain Nuedexta, Wellbutrin, Zyprexa p.r.n., Remeron, Lexapro, and Ativan gel p.r.n. Consider Depakote as a mood stabilizer. KISHORE JI MD DR: JAILENE/amanda JOB#: [id number] / [id number]
[2016-12-10] MEDS: buPROPion XL 150 MG TAB.ER.24H PO SCH (09:31)
[2016-12-10] MEDS: LOSARTAN 50 MG TABLET. PO SCH (09:31)
[2016-12-10] MEDS: ESCITALOPRAM 10 MG TABLET. PO SCH (09:32)
[2016-12-10] MEDS: POLYETHYLENE GLYCOL 3350 17 GM PACKET. PO SCH (09:32)
[2016-12-10] MEDS: DEXTROMETHORPHAN HBR/QUINIDINE 1 CAPSULE. PO SCH ×2 (09:32→19:34)
[2016-12-10] MEDS: DIVALPROEX 125 MG CAP.SPRINK PO SCH ×2 (09:32→13:47)
[2016-12-10] MEDS: NYSTATIN 100,000 UNIT/GM TOPICAL CREAM 15GM TUBE. TP SCH ×2 (09:32→19:34)
[2016-12-10] MEDS: PRENATAL MULTIVITAMIN TABLET. PO SCH (09:35)
[2016-12-10] MEDS: BISACODYL 10 MG SUPP.RECT RC SCH (09:35)
[2016-12-10] MEDS: CYANOCOBALAMIN (VITAMIN B-12) 1,000 MCG TABLET. PO SCH (09:35)
[2016-12-10] MEDS: oxyCODONE IR 5 MG TABLET PO SCH ×3 (09:35→19:35)
[2016-12-10] MEDS: CHOLECALCIFEROL (VITAMIN D3) 1,000 UNIT TABLET PO SCH ×2 (09:35→16:32)
[2016-12-10 15:49] VITALS: BP 99/60
[2016-12-10] MEDS: traZODone 50 MG TABLET. PO SCH (19:32)
[2016-12-10] MEDS: MIRTAZAPINE 15 MG TABLET PO SCH (19:32)
[2016-12-10] MEDS: DOCUSATE SODIUM 100 MG CAPSULE PO SCH (19:32)
--- NOTE | 2016-12-10 20:56 | PDOC ---
Exam Maxx Demential Exam: Maxx Note: Please also refer to the separate dictated note~for this date of service dictated separately.~Patient seen individually. Discussed the patient with Nursing staff reviewed the chart.~Reviewed interim history and current functioning. Reviewed vital signs,~Labs/ Radiology~and current medications noted below. Continue current treatment with the changes noted in the dictated addendum note Assessment: Vital Signs: Vital Signs Date Time Temp Pulse Resp B/P (MAP) Pulse Ox O2 Delivery O2 Flow Rate FiO2 12/10/16 19:35 20 Room Air 12/10/16 15:49 97.8 76 99/60 (73 96 I&O Intake and Output 12/10/16 07:00 Intake Total 360 ml Balance 360 ml Intake Oral 360 ml Current Medications: Meds: Current Medications Haloperidol Lactate (Haldol) 5 mg 1X ONCE IM Last administered on 12/03/16 18 :56; Start 12/03/16 at 18:50; Stop 12/03/16 at 18:51; Status DC Acetaminophen (Tylenol) 650 mg PRN Q6HRS PRN PO PAIN / TEMP; Start 12/03/16 at 20:45 Bupropion HCl (Wellbutrin Xl) 150 mg DAILY PO Last administered on 12/10/16 09 :31; Start 12/04/16 at 09:00 Citalopram Hydrobromide (CeleXA) 15 mg DAILY PO Last administered on 12/04/16 09:32; Start 12/04/16 at 09:00; Stop 12/04/16 at 17:51; Status DC Mirtazapine (Remeron) 15 mg HS PO Last administered on 12/10/16 19:32; Start 12/03/16 at 22:45 Olanzapine (Zyprexa Zydis) 2.5 mg DAILY PO Last administered on 12/10/16 09:32 ; Start 12/04/16 at 09:00 Trazodone HCl (Desyrel) 50 mg QHS PO Last administered on 12/10/16 19:32; Start 12/04/16 at 22:45 Olanzapine (Zyprexa Zydis) 5 mg PRN Q2HR PRN PO Psych Last administered on 12/05 14:28; Start 12/03/16 at 22:00 Bisacodyl (Dulcolax Supp) 10 mg Q4DAYS RC Last administered on 12/10/16 09:35 ; Start 12/04/16 at 09:00 Docusate Sodium (Colace) 200 mg HS PO Last administered on 12/10/16 19:32; Start 12/04/16 at 21:00 Losartan Potassium (Cozaar) 50 mg DAILY PO Last administered on 12/10/16 09:31 ; Start 12/04/16 at 09:00 Multi-Ingredient Ointment (Analgesic [place]) 1 mariaa PRN QID PRN TP MUSCLE PAIN; Start 12/04/16 at 06:45 Nystatin (Mycostatin) 1 mariaa BID TP Last administered on 12/10/16 19:34; Start 12/04/16 at 09:00 Nystatin (Nystop) 1 mariaa PRN BID PRN TP SKIN PROTECTION Last administered on 21:55; Start 12/04/16 at 06:45 Oxycodone HCl (Roxicodone) 5 mg TID PO Last administered on 12/10/16 19:35; Start 12/04/16 at 09:00 Polyethylene Glycol (miraLAX) 17 gm DAILY PO Last administered on 12/10/16 09: 32; Start 12/04/16 at 09:00 Capsaicin (Zostrix) 1 mariaa PRN Q8HRS PRN TP PAIN; Start 12/04/16 at 06:45 Loperamide HCl (Imodium) 2 mg PRN Q2HR PRN PO DIARRHEA; Start 12/04/16 at 06:45 Lorazepam (Ativan) 0.5 mg PRN Q2HR PRN TP ANXIETY / AGITATION; Start 12/04/16 at 06:45; Stop 12/04/16 at 13:56; Status DC Magnesium Hydroxide (Milk Of Magnesia) 2,400 mg PRN QHS PRN PO CONSTIPATION; Start 12/04/16 at 06:45 Morphine Sulfate (Roxanol Conc) 10 mg PRN Q4HRS PRN SL PAIN Last administered on 12/10/16 06:02; Start 12/04/16 at 06:45 Ondansetron HCl (Zofran Odt) 4 mg PRN Q4HRS PRN PO NAUSEA; Start 12/04/16 at 06 :45 Oxycodone HCl (Roxicodone) 5 mg PRN TID PRN PO PAIN; Start 12/04/16 at 06:45 Lorazepam (Ativan) 0.5 mg PRN Q2HR PRN TP ANXIETY / AGITATION; Start 12/05/16 at 14:00 Prenat Multivit/ [employer]/Iron/Folic Ac (Multivitamin ) 1 tab DAILYBFRSUP PO Last administered on 12/10/16 09:35; Start 12/04/16 at 17:00 Escitalopram Oxalate (Lexapro) 5 mg DAILY PO Last administered on 12/07/16 08: 32; Start 12/05/16 at 09:00; Stop 12/07/16 at 15:30; Status DC Vitamin D (Vitamin D3) 1,000 unit BIDACLD PO Last administered on 12/10/16 16: 32; Start 12/05/16 at 11:30 Cyanocobalamin (Vitamin B-12) 1,000 mcg DAILYBFRLUN PO Last administered on 09:35; Start 12/05/16 at 11:30 Escitalopram Oxalate (Lexapro) 10 mg DAILY PO Last administered on 12/10/16 09 :32; Start 12/08/16 at 09:00 Trazodone HCl (Desyrel) 50 mg PRN 1X PRN PO INSOMNIA Last administered on 23:19; Start 12/08/16 at 18:30 Divalproex Sodium (Depakote Sprinkles) 125 mg BID92 PO Last administered on 13:47; Start 12/09/16 at 09:00 Active Scripts Active Reported Oxycodone Hcl 5 Mg Capsule 5 Mg PO PRN TID PRN Anti-Diarrhea (Loperamide Hcl) 2 Mg Tablet 2 Mg PO PRN Q2HR PRN Gnp Enema Ready To Use (Na Phos,M-B/Na Phos,Di-Ba) 133 Ml Enema 133 Ml RC PRN DAILY PRN Nystatin 15 Gm Cream..g. 1 Mariaa TP BID Trazodone Hcl 50 Mg Tablet 50 Mg PO QHS Miralax (Polyethylene Glycol 3350) 119 Gm Powder 17 Gm PO DAILY Oxycodone Hcl 5 Mg Tablet 5 Mg PO TID Zyprexa Zydis (Olanzapine) 5 Mg Tab.rapdis 2.5 Mg PO DAILY Nuedexta 20-10 Mg Capsule (Dextromethorphan Hbr/Quinidine) 1 Each Capsule 1 Cap PO BID Citalopram Hbr (Citalopram Hydrobromide) 10 Mg Tablet 15 Mg PO DAILY Wellbutrin Xl (Bupropion Hcl) 150 Mg Tab.er.24h 150 Mg PO DAILY Lorazepam 2 Mg/1 Ml Disp.syrin 0.5 Mg TP PRN Q2HR PRN Morphine Sulfate 20 Mg/1 Ml Syringe 10 Mg SL PRN Q4HRS PRN Dulcolax (Bisacodyl) 10 Mg Supp.rect 10 Mg RC Q4DAYS PRN Nystatin 15 Gm Powder 1 Mariaa TP PRN BID PRN Capsaicin 42.5 Gm Cream..g. 1 Mariaa TP PRN Q8HRS PRN Analgesic [place] (Methyl Salicylate/Menthol) 29 Gm Oint...g. 1 Mariaa TP PRN QID PRN Mirtazapine 15 Mg Tablet 15 Mg PO HS Losartan Potassium 50 Mg Tablet 50 Mg PO DAILY Docusate Sodium 100 Mg Capsule 200 Mg PO HS Milk Of Magnesia (Magnesium Hydroxide) 2,400 Mg/10 Ml Oral.susp 2,400 Mg PO PRN QHS PRN Zofran (Ondansetron Hcl) 4 Mg Tablet 4 Mg PO PRN Q4HRS PRN KISHORE JI MD December 10, 2016 20:56
[2016-12-11 06:22] VITALS: BP 141/85
[2016-12-11] MEDS: POLYETHYLENE GLYCOL 3350 17 GM PACKET. PO SCH (08:36)
[2016-12-11] MEDS: buPROPion XL 150 MG TAB.ER.24H PO SCH (08:36)
[2016-12-11] MEDS: NYSTATIN 100,000 UNIT/GM TOPICAL CREAM 15GM TUBE. TP SCH ×2 (08:36→19:19)
[2016-12-11] MEDS: oxyCODONE IR 5 MG TABLET PO SCH ×4 (08:37→19:20)
[2016-12-11] MEDS: ESCITALOPRAM 10 MG TABLET. PO SCH (08:37)
[2016-12-11] MEDS: DEXTROMETHORPHAN HBR/QUINIDINE 1 CAPSULE. PO SCH ×2 (08:37→19:20)
[2016-12-11] MEDS: LOSARTAN 50 MG TABLET. PO SCH (08:37)
[2016-12-11] MEDS: BISACODYL 10 MG SUPP.RECT RC SCH (08:38)
[2016-12-11] MEDS: DIVALPROEX 125 MG CAP.SPRINK PO SCH ×3 (08:38→14:11)
[2016-12-11] MEDS: CHOLECALCIFEROL (VITAMIN D3) 1,000 UNIT TABLET PO SCH ×2 (11:49→16:56)
[2016-12-11] MEDS: CYANOCOBALAMIN (VITAMIN B-12) 1,000 MCG TABLET. PO SCH (11:50)
[2016-12-11 16:00] VITALS: BP 130/77
[2016-12-11] MEDS: PRENATAL MULTIVITAMIN TABLET. PO SCH (16:56)
[2016-12-11] MEDS: DOCUSATE SODIUM 100 MG CAPSULE PO SCH (19:19)
[2016-12-11] MEDS: traZODone 50 MG TABLET. PO SCH (19:20)
[2016-12-11] MEDS: MIRTAZAPINE 15 MG TABLET PO SCH (19:20)
--- NOTE | 2016-12-11 21:24 | PDOC ---
Exam Maxx Demential Exam: Maxx Note: Please also refer to the separate dictated note~for this date of service dictated separately.~Patient seen individually. Discussed the patient with Nursing staff reviewed the chart.~Reviewed interim history and current functioning. Reviewed vital signs,~Labs/ Radiology~and current medications noted below. Continue current treatment with the changes noted in the dictated addendum note Assessment: Vital Signs: Vital Signs Date Time Temp Pulse Resp B/P (MAP) Pulse Ox O2 Delivery O2 Flow Rate FiO2 12/11/16 19:20 20 Room Air 12/11/16 16:00 97.9 79 130/77 (94) 97 I&O Intake and Output 12/11/16 07:00 Intake Total 840 ml Balance 840 ml Intake Oral 840 ml Current Medications: Meds: Current Medications Haloperidol Lactate (Haldol) 5 mg 1X ONCE IM Last administered on 12/03/16 18 :56; Start 12/03/16 at 18:50; Stop 12/03/16 at 18:51; Status DC Acetaminophen (Tylenol) 650 mg PRN Q6HRS PRN PO PAIN / TEMP; Start 12/03/16 at 20:45 Bupropion HCl (Wellbutrin Xl) 150 mg DAILY PO Last administered on 12/11/16 08 :36; Start 12/04/16 at 09:00 Citalopram Hydrobromide (CeleXA) 15 mg DAILY PO Last administered on 12/04/16 09:32; Start 12/04/16 at 09:00; Stop 12/04/16 at 17:51; Status DC Mirtazapine (Remeron) 15 mg HS PO Last administered on 12/11/16 19:20; Start 12/03/16 at 22:45 Olanzapine (Zyprexa Zydis) 2.5 mg DAILY PO Last administered on 12/11/16 08:38 ; Start 12/04/16 at 09:00 Trazodone HCl (Desyrel) 50 mg QHS PO Last administered on 12/11/16 19:20; Start 12/04/16 at 22:45 Olanzapine (Zyprexa Zydis) 5 mg PRN Q2HR PRN PO Psych Last administered on 12/05 14:28; Start 12/03/16 at 22:00 Bisacodyl (Dulcolax Supp) 10 mg Q4DAYS RC Last administered on 12/11/16 08:38 ; Start 12/04/16 at 09:00 Docusate Sodium (Colace) 200 mg HS PO Last administered on 12/11/16 19:19; Start 12/04/16 at 21:00 Losartan Potassium (Cozaar) 50 mg DAILY PO Last administered on 12/11/16 08:37 ; Start 12/04/16 at 09:00 Multi-Ingredient Ointment (Analgesic [place]) 1 mariaa PRN QID PRN TP MUSCLE PAIN; Start 12/04/16 at 06:45 Nystatin (Mycostatin) 1 mariaa BID TP Last administered on 12/11/16 19:19; Start 12/04/16 at 09:00 Nystatin (Nystop) 1 mariaa PRN BID PRN TP SKIN PROTECTION Last administered on 21:55; Start 12/04/16 at 06:45 Oxycodone HCl (Roxicodone) 5 mg TID PO Last administered on 12/11/16 19:20; Start 12/04/16 at 09:00 Polyethylene Glycol (miraLAX) 17 gm DAILY PO Last administered on 12/11/16 08: 36; Start 12/04/16 at 09:00 Capsaicin (Zostrix) 1 mariaa PRN Q8HRS PRN TP PAIN; Start 12/04/16 at 06:45 Loperamide HCl (Imodium) 2 mg PRN Q2HR PRN PO DIARRHEA; Start 12/04/16 at 06:45 Lorazepam (Ativan) 0.5 mg PRN Q2HR PRN TP ANXIETY / AGITATION; Start 12/04/16 at 06:45; Stop 12/04/16 at 13:56; Status DC Magnesium Hydroxide (Milk Of Magnesia) 2,400 mg PRN QHS PRN PO CONSTIPATION; Start 12/04/16 at 06:45 Morphine Sulfate (Roxanol Conc) 10 mg PRN Q4HRS PRN SL PAIN Last administered on 12/10/16 06:02; Start 12/04/16 at 06:45 Ondansetron HCl (Zofran Odt) 4 mg PRN Q4HRS PRN PO NAUSEA; Start 12/04/16 at 06 :45 Oxycodone HCl (Roxicodone) 5 mg PRN TID PRN PO PAIN; Start 12/04/16 at 06:45 Lorazepam (Ativan) 0.5 mg PRN Q2HR PRN TP ANXIETY / AGITATION; Start 12/05/16 at 14:00 Prenat Multivit/ [place]/Iron/Folic Ac (Multivitamin ) 1 tab DAILYBFRSUP PO Last administered on 12/11/16 16:56; Start 12/04/16 at 17:00 Escitalopram Oxalate (Lexapro) 5 mg DAILY PO Last administered on 12/07/16 08: 32; Start 12/05/16 at 09:00; Stop 12/07/16 at 15:30; Status DC Vitamin D (Vitamin D3) 1,000 unit BIDACLD PO Last administered on 12/11/16 16: 56; Start 12/05/16 at 11:30 Cyanocobalamin (Vitamin B-12) 1,000 mcg DAILYBFRLUN PO Last administered on 11:50; Start 12/05/16 at 11:30 Escitalopram Oxalate (Lexapro) 10 mg DAILY PO Last administered on 12/11/16 08 :37; Start 12/08/16 at 09:00 Trazodone HCl (Desyrel) 50 mg PRN 1X PRN PO INSOMNIA Last administered on 23:19; Start 12/08/16 at 18:30 Divalproex Sodium (Depakote Sprinkles) 125 mg BID92 PO Last administered on 08:38; Start 12/09/16 at 09:00 Active Scripts Active Reported Oxycodone Hcl 5 Mg Capsule 5 Mg PO PRN TID PRN Anti-Diarrhea (Loperamide Hcl) 2 Mg Tablet 2 Mg PO PRN Q2HR PRN Gnp Enema Ready To Use (Na Phos,M-B/Na Phos,Di-Ba) 133 Ml Enema 133 Ml RC PRN DAILY PRN Nystatin 15 Gm Cream..g. 1 Mariaa TP BID Trazodone Hcl 50 Mg Tablet 50 Mg PO QHS Miralax (Polyethylene Glycol 3350) 119 Gm Powder 17 Gm PO DAILY Oxycodone Hcl 5 Mg Tablet 5 Mg PO TID Zyprexa Zydis (Olanzapine) 5 Mg Tab.rapdis 2.5 Mg PO DAILY Nuedexta 20-10 Mg Capsule (Dextromethorphan Hbr/Quinidine) 1 Each Capsule 1 Cap PO BID Citalopram Hbr (Citalopram Hydrobromide) 10 Mg Tablet 15 Mg PO DAILY Wellbutrin Xl (Bupropion Hcl) 150 Mg Tab.er.24h 150 Mg PO DAILY Lorazepam 2 Mg/1 Ml Disp.syrin 0.5 Mg TP PRN Q2HR PRN Morphine Sulfate 20 Mg/1 Ml Syringe 10 Mg SL PRN Q4HRS PRN Dulcolax (Bisacodyl) 10 Mg Supp.rect 10 Mg RC Q4DAYS PRN Nystatin 15 Gm Powder 1 Mariaa TP PRN BID PRN Capsaicin 42.5 Gm Cream..g. 1 Mariaa TP PRN Q8HRS PRN Analgesic [place] (Methyl Salicylate/Menthol) 29 Gm Oint...g. 1 Mariaa TP PRN QID PRN Mirtazapine 15 Mg Tablet 15 Mg PO HS Losartan Potassium 50 Mg Tablet 50 Mg PO DAILY Docusate Sodium 100 Mg Capsule 200 Mg PO HS Milk Of Magnesia (Magnesium Hydroxide) 2,400 Mg/10 Ml Oral.susp 2,400 Mg PO PRN QHS PRN Zofran (Ondansetron Hcl) 4 Mg Tablet 4 Mg PO PRN Q4HRS PRN KISHORE JI MD December 11, 2016 21:24
[2016-12-12 06:06] VITALS: BP 175/89
[2016-12-12 06:37] LABS: HEMATOCRIT 39.7 % (36.0-47.0); HEMOGLOBIN 13.5 g/dL (12.0-15.5); RED BLOOD COUNT 4.45 x10^6/uL (3.50-5.40); RED CELL DISTRIBUTION WIDTH 13.7 % (11.5-14.5); WHITE BLOOD COUNT 7.2 x10^3/uL (4.0-11.0)
[2016-12-12 06:48] LABS: ALBUMIN/GLOBULIN RATIO 0.9 (1.0-1.7); ALK PHOS 91 U/L (46-116); ALT (SGPT) 13 U/L (14-59); ANION GAP 5 (6-14); AST (SGOT) 11 U/L (15-37); BLOOD UREA NITROGEN 22 mg/dL (7-20); BUN/CREATININE RATIO 22 (6-20); CALCIUM 8.8 mg/dL (8.5-10.1); CARBON DIOXIDE 30 mmol/L (21-32); CHLORIDE 106 mmol/L (98-107); GFR 52.3; GLUCOSE 112 mg/dL (70-99); POTASSIUM 4.2 mmol/L (3.5-5.1); SODIUM 141 mmol/L (136-145); TOTAL BILIRUBIN 0.3 mg/dL (0.2-1.0); TOTAL PROTEIN 6.4 g/dL (6.4-8.2)
[2016-12-12 06:49] LABS: VAL ACID 30 mcg/mL (50-100)
[2016-12-12] MEDS ORDERED: BISACODYL 10 MG SUPP.RECT RC PRN (07:15)
[2016-12-12] MEDS: ACETAMINOPHEN 325 MG TABLET PO PRN (07:28)
[2016-12-12] MEDS: LOSARTAN 50 MG TABLET. PO SCH (08:02)
[2016-12-12] MEDS: oxyCODONE IR 5 MG TABLET PO SCH ×3 (08:02→19:16)
[2016-12-12] MEDS: DEXTROMETHORPHAN HBR/QUINIDINE 1 CAPSULE. PO SCH ×2 (08:03→19:15)
[2016-12-12] MEDS: ESCITALOPRAM 10 MG TABLET. PO SCH (08:03)
[2016-12-12] MEDS: DIVALPROEX 125 MG CAP.SPRINK PO SCH ×2 (08:03→13:37)
[2016-12-12] MEDS: buPROPion XL 150 MG TAB.ER.24H PO SCH (08:03)
[2016-12-12] MEDS: POLYETHYLENE GLYCOL 3350 17 GM PACKET. PO SCH (08:05)
[2016-12-12] MEDS: NYSTATIN 100,000 UNIT/GM TOPICAL CREAM 15GM TUBE. TP SCH ×2 (08:05→19:15)
--- NOTE | 2016-12-12 11:07 | PN ---
DATE: 12/09/2016 PSYCHIATRIC PROGRESS NOTE This is a late entry of 12/09/2016, covers elements not covered in my initial note. SUBJECTIVE: The patient slept 4-3/4 hours and then was sleeping until lunchtime on 12/09/2016, did not eat lunch. REVIEW OF SYSTEMS: No CV, , eye, ENT, or pulmonary system symptoms on review. Reliability poor. MENTAL STATUS EXAM: Oriented to herself. Insight, judgment, recent and remote memory, attention, concentration, fund of knowledge poor, consistent with her diagnosis mentioned in my initial note. PLAN: Continue psychotropics mentioned in my initial note for now. KISHORE JI MD DR: JAILENE/amanda JOB#: [id number] / [id number]
--- NOTE | 2016-12-12 11:11 | PN ---
DATE: 12/10/2016 PSYCHIATRIC PROGRESS NOTE This is a late entry of 12/10/2016, covers elements not covered in my initial note. SUBJECTIVE: The patient was also staffed at a treatment team meeting with the entire team and the patient's daughter, Herlinda, attended the conference. Reviewed the patient's history, diagnosis, progress, current psychotropics at length. She slept 5-1/2 hours on average, but last night she slept 7-1/2 hours. Appetite about 60%. REVIEW OF SYSTEMS: No CV, , pulmonary, eye, ENT system symptoms on review. She is legally blind. MENTAL STATUS EXAM: Oriented to herself. Insight, judgment, recent and remote memory, attention, concentration, fund of knowledge poor, consistent with her diagnosis mentioned in my initial note. PLAN: Continue psychotropics mentioned in my initial note. She has been started on Depakote Sprinkles with labs level to be repeated on 12/12/2016. KISHORE JI MD DR: JAILENE/amanda JOB#: [id number] / [id number]
[2016-12-12] MEDS: CHOLECALCIFEROL (VITAMIN D3) 1,000 UNIT TABLET PO SCH ×2 (11:53→17:41)
[2016-12-12] MEDS: CYANOCOBALAMIN (VITAMIN B-12) 1,000 MCG TABLET. PO SCH (11:53)
[2016-12-12 15:56] VITALS: BP 136/81
[2016-12-12] MEDS: PRENATAL MULTIVITAMIN TABLET. PO SCH (17:41)
[2016-12-12] MEDS: DOCUSATE SODIUM 100 MG CAPSULE PO SCH (19:15)
[2016-12-12] MEDS: traZODone 50 MG TABLET. PO SCH (19:15)
[2016-12-12] MEDS: MIRTAZAPINE 15 MG TABLET PO SCH (19:15)
--- NOTE | 2016-12-12 22:51 | PDOC ---
Exam Maxx Demential Exam: Maxx Note: Please also refer to the separate dictated note~for this date of service dictated separately.~Patient seen individually. Discussed the patient with Nursing staff reviewed the chart.~Reviewed interim history and current functioning. Reviewed vital signs,~Labs/ Radiology~and current medications noted below. Continue current treatment with the changes noted in the dictated addendum note Assessment: Vital Signs: Vital Signs Date Time Temp Pulse Resp B/P (MAP) Pulse Ox O2 Delivery O2 Flow Rate FiO2 12/12/16 20:16 18 Room Air 12/12/16 15:56 97.6 88 136/81 (99) 95 I&O Intake and Output 12/12/16 07:00 Intake Total 720 ml Balance 720 ml Intake Oral 720 ml # Bowel Movements 1 Labs: Laboratory Tests Test 12/12/16 06:14 White Blood Count 7.2 x10^3/uL (4.0-11.0) Red Blood Count 4.45 x10^6/uL (3.50-5.40) Hemoglobin 13.5 g/dL (12.0-15.5) Hematocrit 39.7 % (36.0-47.0) Mean Corpuscular Volume 89 fL (79-100) Mean Corpuscular Hemoglobin 30 pg (25-35) Mean Corpuscular Hemoglobin Concent 34 g/dL (31-37) Red Cell Distribution Width 13.7 % (11.5-14.5) Platelet Count 261 x10^3/uL (140-400) Sodium Level 141 mmol/L (136-145) Potassium Level 4.2 mmol/L (3.5-5.1) Chloride Level 106 mmol/L (98-107) Carbon Dioxide Level 30 mmol/L (21-32) Anion Gap 5 (6-14) L Blood Urea Nitrogen 22 mg/dL (7-20) H Creatinine 1.0 mg/dL (0.6-1.0) Estimated GFR (Cockcroft-Gault) 52.3 BUN/Creatinine Ratio 22 (6-20) H Glucose Level 112 mg/dL (70-99) H Calcium Level 8.8 mg/dL (8.5-10.1) Total Bilirubin 0.3 mg/dL (0.2-1.0) Aspartate Amino Transferase (AST) 11 U/L (15-37) L Alanine Aminotransferase (ALT) 13 U/L (14-59) L Alkaline Phosphatase 91 U/L (46-116) Total Protein 6.4 g/dL (6.4-8.2) Albumin 3.0 g/dL (3.4-5.0) L Albumin/Globulin Ratio 0.9 (1.0-1.7) L Valproic Acid Level 30 mcg/mL (50-100) L Valproic Acid Last Dose Date 12/11/16 Valproic Acid Last Dose Time 1500 Current Medications: Meds: Current Medications Haloperidol Lactate (Haldol) 5 mg 1X ONCE IM Last administered on 12/03/16 18 :56; Start 12/03/16 at 18:50; Stop 12/03/16 at 18:51; Status DC Acetaminophen (Tylenol) 650 mg PRN Q6HRS PRN PO PAIN / TEMP Last administered on 12/12/16 07:28; Start 12/03/16 at 20:45 Bupropion HCl (Wellbutrin Xl) 150 mg DAILY PO Last administered on 12/12/16 08 :03; Start 12/04/16 at 09:00 Citalopram Hydrobromide (CeleXA) 15 mg DAILY PO Last administered on 12/04/16 09:32; Start 12/04/16 at 09:00; Stop 12/04/16 at 17:51; Status DC Mirtazapine (Remeron) 15 mg HS PO Last administered on 12/12/16 19:15; Start 12/03/16 at 22:45 Olanzapine (Zyprexa Zydis) 2.5 mg DAILY PO Last administered on 12/12/16 08:03 ; Start 12/04/16 at 09:00 Trazodone HCl (Desyrel) 50 mg QHS PO Last administered on 12/12/16 19:15; Start 12/04/16 at 22:45 Olanzapine (Zyprexa Zydis) 5 mg PRN Q2HR PRN PO Psych Last administered on 12/05 14:28; Start 12/03/16 at 22:00 Bisacodyl (Dulcolax Supp) 10 mg Q4DAYS RC Last administered on 12/11/16 08:38 ; Start 12/04/16 at 09:00; Stop 12/12/16 at 07:06; Status DC Docusate Sodium (Colace) 200 mg HS PO Last administered on 12/12/16 19:15; Start 12/04/16 at 21:00 Losartan Potassium (Cozaar) 50 mg DAILY PO Last administered on 12/12/16 08:02 ; Start 12/04/16 at 09:00 Multi-Ingredient Ointment (Analgesic [place]) 1 mariaa PRN QID PRN TP MUSCLE PAIN; Start 12/04/16 at 06:45 Nystatin (Mycostatin) 1 mariaa BID TP Last administered on 12/12/16 19:15; Start 12/04/16 at 09:00 Nystatin (Nystop) 1 mariaa PRN BID PRN TP SKIN PROTECTION Last administered on 21:55; Start 12/04/16 at 06:45 Oxycodone HCl (Roxicodone) 5 mg TID PO Last administered on 12/12/16 19:16; Start 12/04/16 at 09:00 Polyethylene Glycol (miraLAX) 17 gm DAILY PO Last administered on 12/12/16 08: 05; Start 12/04/16 at 09:00 Capsaicin (Zostrix) 1 mariaa PRN Q8HRS PRN TP PAIN; Start 12/04/16 at 06:45 Loperamide HCl (Imodium) 2 mg PRN Q2HR PRN PO DIARRHEA; Start 12/04/16 at 06:45 Lorazepam (Ativan) 0.5 mg PRN Q2HR PRN TP ANXIETY / AGITATION; Start 12/04/16 at 06:45; Stop 12/04/16 at 13:56; Status DC Magnesium Hydroxide (Milk Of Magnesia) 2,400 mg PRN QHS PRN PO CONSTIPATION; Start 12/04/16 at 06:45 Morphine Sulfate (Roxanol Conc) 10 mg PRN Q4HRS PRN SL PAIN Last administered on 12/10/16 06:02; Start 12/04/16 at 06:45 Ondansetron HCl (Zofran Odt) 4 mg PRN Q4HRS PRN PO NAUSEA; Start 12/04/16 at 06 :45 Oxycodone HCl (Roxicodone) 5 mg PRN TID PRN PO PAIN; Start 12/04/16 at 06:45 Lorazepam (Ativan) 0.5 mg PRN Q2HR PRN TP ANXIETY / AGITATION; Start 12/05/16 at 14:00 Prenat Multivit/ [place]/Iron/Folic Ac (Multivitamin ) 1 tab DAILYBFRSUP PO Last administered on 12/12/16 17:41; Start 12/04/16 at 17:00 Escitalopram Oxalate (Lexapro) 5 mg DAILY PO Last administered on 12/07/16 08: 32; Start 12/05/16 at 09:00; Stop 12/07/16 at 15:30; Status DC Vitamin D (Vitamin D3) 1,000 unit BIDACLD PO Last administered on 12/12/16 17: 41; Start 12/05/16 at 11:30 Cyanocobalamin (Vitamin B-12) 1,000 mcg DAILYBFRLUN PO Last administered on 11:53; Start 12/05/16 at 11:30 Escitalopram Oxalate (Lexapro) 10 mg DAILY PO Last administered on 12/12/16 08 :03; Start 12/08/16 at 09:00 Trazodone HCl (Desyrel) 50 mg PRN 1X PRN PO INSOMNIA Last administered on 23:19; Start 12/08/16 at 18:30 Divalproex Sodium (Depakote Sprinkles) 125 mg BID92 PO Last administered on 13:37; Start 12/09/16 at 09:00 Bisacodyl (Dulcolax Supp) 10 mg Q4DAYS PRN RC CONSTIPATION; Start 12/12/16 at 07:15 Active Scripts Active Reported Oxycodone Hcl 5 Mg Capsule 5 Mg PO PRN TID PRN Anti-Diarrhea (Loperamide Hcl) 2 Mg Tablet 2 Mg PO PRN Q2HR PRN Gnp Enema Ready To Use (Na Phos,M-B/Na Phos,Di-Ba) 133 Ml Enema 133 Ml RC PRN DAILY PRN Nystatin 15 Gm Cream..g. 1 Mariaa TP BID Trazodone Hcl 50 Mg Tablet 50 Mg PO QHS Miralax (Polyethylene Glycol 3350) 119 Gm Powder 17 Gm PO DAILY Oxycodone Hcl 5 Mg Tablet 5 Mg PO TID Zyprexa Zydis (Olanzapine) 5 Mg Tab.rapdis 2.5 Mg PO DAILY Nuedexta 20-10 Mg Capsule (Dextromethorphan Hbr/Quinidine) 1 Each Capsule 1 Cap PO BID Citalopram Hbr (Citalopram Hydrobromide) 10 Mg Tablet 15 Mg PO DAILY Wellbutrin Xl (Bupropion Hcl) 150 Mg Tab.er.24h 150 Mg PO DAILY Lorazepam 2 Mg/1 Ml Disp.syrin 0.5 Mg TP PRN Q2HR PRN Morphine Sulfate 20 Mg/1 Ml Syringe 10 Mg SL PRN Q4HRS PRN Dulcolax (Bisacodyl) 10 Mg Supp.rect 10 Mg RC Q4DAYS PRN Nystatin 15 Gm Powder 1 Mariaa TP PRN BID PRN Capsaicin 42.5 Gm Cream..g. 1 Mariaa TP PRN Q8HRS PRN Analgesic [place] (Methyl Salicylate/Menthol) 29 Gm Oint...g. 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
[2016-12-13 06:01] VITALS: BP 138/82
[2016-12-13] MEDS: POLYETHYLENE GLYCOL 3350 17 GM PACKET. PO SCH (08:25)
[2016-12-13] MEDS: DIVALPROEX 125 MG CAP.SPRINK PO SCH ×2 (08:25→13:04)
[2016-12-13] MEDS: buPROPion XL 150 MG TAB.ER.24H PO SCH (08:26)
[2016-12-13] MEDS: DEXTROMETHORPHAN HBR/QUINIDINE 1 CAPSULE. PO SCH ×2 (08:26→19:32)
[2016-12-13] MEDS: ESCITALOPRAM 10 MG TABLET. PO SCH (08:26)
[2016-12-13] MEDS: LOSARTAN 50 MG TABLET. PO SCH (08:26)
[2016-12-13] MEDS: NYSTATIN 100,000 UNIT/GM TOPICAL CREAM 15GM TUBE. TP SCH ×2 (08:28→19:32)
[2016-12-13] MEDS: oxyCODONE IR 5 MG TABLET PO SCH ×3 (08:28→19:32)
[2016-12-13] MEDS: CYANOCOBALAMIN (VITAMIN B-12) 1,000 MCG TABLET. PO SCH (11:12)
[2016-12-13] MEDS: CHOLECALCIFEROL (VITAMIN D3) 1,000 UNIT TABLET PO SCH ×2 (11:12→16:32)
[2016-12-13 16:23] VITALS: BP 100/65
[2016-12-13] MEDS: PRENATAL MULTIVITAMIN TABLET. PO SCH (16:32)
[2016-12-13] MEDS: DOCUSATE SODIUM 100 MG CAPSULE PO SCH (19:32)
[2016-12-13] MEDS: MIRTAZAPINE 15 MG TABLET PO SCH (19:32)
[2016-12-13] MEDS: traZODone 50 MG TABLET. PO SCH (19:33)
--- NOTE | 2016-12-13 21:09 | PDOC ---
Exam Maxx Demential Exam: Maxx Note: Please also refer to the separate dictated note~for this date of service dictated separately.~Patient seen individually. Discussed the patient with Nursing staff reviewed the chart.~Reviewed interim history and current functioning. Reviewed vital signs,~Labs/ Radiology~and current medications noted below. Continue current treatment with the changes noted in the dictated addendum note Assessment: Vital Signs: Vital Signs Date Time Temp Pulse Resp B/P (MAP) Pulse Ox O2 Delivery O2 Flow Rate FiO2 12/13/16 19:32 18 12/13/16 16:23 98.0 72 100/65 (77) 92 Room Air I&O Intake and Output 12/13/16 07:00 Intake Total 720 ml Balance 720 ml Intake Oral 720 ml # Voids 1 Current Medications: Meds: Current Medications Haloperidol Lactate (Haldol) 5 mg 1X ONCE IM Last administered on 12/03/16 18 :56; Start 12/03/16 at 18:50; Stop 12/03/16 at 18:51; Status DC Acetaminophen (Tylenol) 650 mg PRN Q6HRS PRN PO PAIN / TEMP Last administered on 12/12/16 07:28; Start 12/03/16 at 20:45 Bupropion HCl (Wellbutrin Xl) 150 mg DAILY PO Last administered on 12/13/16 08 :26; Start 12/04/16 at 09:00 Citalopram Hydrobromide (CeleXA) 15 mg DAILY PO Last administered on 12/04/16 09:32; Start 12/04/16 at 09:00; Stop 12/04/16 at 17:51; Status DC Mirtazapine (Remeron) 15 mg HS PO Last administered on 12/13/16 19:32; Start 12/03/16 at 22:45 Olanzapine (Zyprexa Zydis) 2.5 mg DAILY PO Last administered on 12/13/16 08:26 ; Start 12/04/16 at 09:00 Trazodone HCl (Desyrel) 50 mg QHS PO Last administered on 12/13/16 19:33; Start 12/04/16 at 22:45 Olanzapine (Zyprexa Zydis) 5 mg PRN Q2HR PRN PO Psych Last administered on 12/05 14:28; Start 12/03/16 at 22:00 Bisacodyl (Dulcolax Supp) 10 mg Q4DAYS RC Last administered on 12/11/16 08:38 ; Start 12/04/16 at 09:00; Stop 12/12/16 at 07:06; Status DC Docusate Sodium (Colace) 200 mg HS PO Last administered on 12/13/16 19:32; Start 12/04/16 at 21:00 Losartan Potassium (Cozaar) 50 mg DAILY PO Last administered on 12/13/16 08:26 ; Start 12/04/16 at 09:00 Multi-Ingredient Ointment (Analgesic [place]) 1 mariaa PRN QID PRN TP MUSCLE PAIN; Start 12/04/16 at 06:45 Nystatin (Mycostatin) 1 mariaa BID TP Last administered on 12/13/16 19:32; Start 12/04/16 at 09:00 Nystatin (Nystop) 1 mariaa PRN BID PRN TP SKIN PROTECTION Last administered on 21:55; Start 12/04/16 at 06:45 Oxycodone HCl (Roxicodone) 5 mg TID PO Last administered on 12/13/16 19:32; Start 12/04/16 at 09:00 Polyethylene Glycol (miraLAX) 17 gm DAILY PO Last administered on 12/13/16 08: 25; Start 12/04/16 at 09:00 Capsaicin (Zostrix) 1 mariaa PRN Q8HRS PRN TP PAIN; Start 12/04/16 at 06:45 Loperamide HCl (Imodium) 2 mg PRN Q2HR PRN PO DIARRHEA; Start 12/04/16 at 06:45 Lorazepam (Ativan) 0.5 mg PRN Q2HR PRN TP ANXIETY / AGITATION; Start 12/04/16 at 06:45; Stop 12/04/16 at 13:56; Status DC Magnesium Hydroxide (Milk Of Magnesia) 2,400 mg PRN QHS PRN PO CONSTIPATION; Start 12/04/16 at 06:45 Morphine Sulfate (Roxanol Conc) 10 mg PRN Q4HRS PRN SL PAIN Last administered on 12/10/16 06:02; Start 12/04/16 at 06:45 Ondansetron HCl (Zofran Odt) 4 mg PRN Q4HRS PRN PO NAUSEA; Start 12/04/16 at 06 :45 Oxycodone HCl (Roxicodone) 5 mg PRN TID PRN PO PAIN; Start 12/04/16 at 06:45 Lorazepam (Ativan) 0.5 mg PRN Q2HR PRN TP ANXIETY / AGITATION; Start 12/05/16 at 14:00 Prenat Multivit/ [place]/Iron/Folic Ac (Multivitamin ) 1 tab DAILYBFRSUP PO Last administered on 12/13/16 16:32; Start 12/04/16 at 17:00 Escitalopram Oxalate (Lexapro) 5 mg DAILY PO Last administered on 12/07/16 08: 32; Start 12/05/16 at 09:00; Stop 12/07/16 at 15:30; Status DC Vitamin D (Vitamin D3) 1,000 unit BIDACLD PO Last administered on 12/13/16 16: 32; Start 12/05/16 at 11:30 Cyanocobalamin (Vitamin B-12) 1,000 mcg DAILYBFRLUN PO Last administered on 11:12; Start 12/05/16 at 11:30 Escitalopram Oxalate (Lexapro) 10 mg DAILY PO Last administered on 12/13/16 08 :26; Start 12/08/16 at 09:00 Trazodone HCl (Desyrel) 50 mg PRN 1X PRN PO INSOMNIA Last administered on 23:19; Start 12/08/16 at 18:30 Divalproex Sodium (Depakote Sprinkles) 125 mg BID92 PO Last administered on 13:04; Start 12/09/16 at 09:00 Bisacodyl (Dulcolax Supp) 10 mg Q4DAYS PRN RC CONSTIPATION; Start 12/12/16 at 07:15 Active Scripts Active Reported Oxycodone Hcl 5 Mg Capsule 5 Mg PO PRN TID PRN Anti-Diarrhea (Loperamide Hcl) 2 Mg Tablet 2 Mg PO PRN Q2HR PRN Gnp Enema Ready To Use (Na Phos,M-B/Na Phos,Di-Ba) 133 Ml Enema 133 Ml RC PRN DAILY PRN Nystatin 15 Gm Cream..g. 1 Mariaa TP BID Trazodone Hcl 50 Mg Tablet 50 Mg PO QHS Miralax (Polyethylene Glycol 3350) 119 Gm Powder 17 Gm PO DAILY Oxycodone Hcl 5 Mg Tablet 5 Mg PO TID Zyprexa Zydis (Olanzapine) 5 Mg Tab.rapdis 2.5 Mg PO DAILY Nuedexta 20-10 Mg Capsule (Dextromethorphan Hbr/Quinidine) 1 Each Capsule 1 Cap PO BID Citalopram Hbr (Citalopram Hydrobromide) 10 Mg Tablet 15 Mg PO DAILY Wellbutrin Xl (Bupropion Hcl) 150 Mg Tab.er.24h 150 Mg PO DAILY Lorazepam 2 Mg/1 Ml Disp.syrin 0.5 Mg TP PRN Q2HR PRN Morphine Sulfate 20 Mg/1 Ml Syringe 10 Mg SL PRN Q4HRS PRN Dulcolax (Bisacodyl) 10 Mg Supp.rect 10 Mg RC Q4DAYS PRN Nystatin 15 Gm Powder 1 Mariaa TP PRN BID PRN Capsaicin 42.5 Gm Cream..g. 1 Mariaa TP PRN Q8HRS PRN Analgesic [place] (Methyl Salicylate/Menthol) 29 Gm Oint...g. 1 Mariaa TP PRN QID PRN Mirtazapine 15 Mg Tablet 15 Mg PO HS Losartan Potassium 50 Mg Tablet 50 Mg PO DAILY Docusate Sodium 100 Mg Capsule 200 Mg PO HS Milk Of Magnesia (Magnesium Hydroxide) 2,400 Mg/10 Ml Oral.susp 2,400 Mg PO PRN QHS PRN Zofran (Ondansetron Hcl) 4 Mg Tablet 4 Mg PO PRN Q4HRS PRN KISHORE JI MD December 13, 2016 21:09
--- NOTE | 2016-12-14 01:27 | PN ---
DATE: 12/11/2016 PSYCHIATRIC PROGRESS NOTE This is a late entry of 12/11/2016 covers elements not covered in my initial note. SUBJECTIVE: The patient remains confused and sleepy in the day room. REVIEW OF SYSTEMS: Poor vision legally blind, impaired ambulation. No CV, , pulmonary system symptoms on review. Reliability poor. MENTAL STATUS EXAM: Oriented to herself. Insight, judgment, recent and remote memory, attention, concentration, fund of knowledge poor, consistent with her diagnosis as mentioned in my initial note. PLAN: Continue current psychotropics. Adjust further as clinically indicated. MAN Valentin JI MD DR: JAILENE/amanda JOB#: [id number] / [id number]
--- NOTE | 2016-12-14 01:28 | PN ---
DATE: 12/12/2016 PSYCHIATRIC PROGRESS NOTE This is a late entry of 12/12/2016 covers elements not covered in my initial note. SUBJECTIVE: Overall, the patient has had a good day, less agitated. REVIEW OF SYSTEMS: Legally blind, impaired ambulation. Complains of some generalized body pain, received oxycodone scheduled and Tylenol p.r.n. No CV, , pulmonary system symptoms on review. MENTAL STATUS EXAM: Oriented to herself. Insight, judgment, recent and remote memory, attention, concentration, fund of knowledge poor, consistent with her diagnosis mentioned in my initial note. PLAN: Continue current psychotropics. Adjust further as clinically indicated. KISHORE JI MD DR: JALIENE/amanda JOB#: [id number] / [id number]
[2016-12-14 06:11] VITALS: BP 121/61
[2016-12-14] MEDS: oxyCODONE IR 5 MG TABLET PO SCH ×3 (08:03→19:26)
[2016-12-14] MEDS: DEXTROMETHORPHAN HBR/QUINIDINE 1 CAPSULE. PO SCH ×2 (08:03→19:26)
[2016-12-14] MEDS: LOSARTAN 50 MG TABLET. PO SCH (08:03)
[2016-12-14] MEDS: ESCITALOPRAM 10 MG TABLET. PO SCH (08:03)
[2016-12-14] MEDS: NYSTATIN 100,000 UNIT/GM TOPICAL CREAM 15GM TUBE. TP SCH ×2 (08:04→19:27)
[2016-12-14] MEDS: POLYETHYLENE GLYCOL 3350 17 GM PACKET. PO SCH (08:04)
[2016-12-14] MEDS: buPROPion XL 150 MG TAB.ER.24H PO SCH (08:04)
[2016-12-14] MEDS: DIVALPROEX 125 MG CAP.SPRINK PO SCH ×2 (08:04→13:43)
[2016-12-14] MEDS: CYANOCOBALAMIN (VITAMIN B-12) 1,000 MCG TABLET. PO SCH (13:43)
[2016-12-14] MEDS: CHOLECALCIFEROL (VITAMIN D3) 1,000 UNIT TABLET PO SCH ×2 (13:43→16:49)
[2016-12-14 15:47] VITALS: BP 118/69
[2016-12-14] MEDS: PRENATAL MULTIVITAMIN TABLET. PO SCH (16:49)
[2016-12-14] MEDS: DOCUSATE SODIUM 100 MG CAPSULE PO SCH (19:24)
[2016-12-14] MEDS: MIRTAZAPINE 15 MG TABLET PO SCH (19:24)
[2016-12-14] MEDS: traZODone 50 MG TABLET. PO SCH (19:24)
--- NOTE | 2016-12-14 21:02 | PDOC ---
Exam Maxx Demential Exam: Maxx Note: Please also refer to the separate dictated note~for this date of service dictated separately.~Patient seen individually. Discussed the patient with Nursing staff reviewed the chart.~Reviewed interim history and current functioning. Reviewed vital signs,~Labs/ Radiology~and current medications noted below. Continue current treatment with the changes noted in the dictated addendum note Assessment: Vital Signs: Vital Signs Date Time Temp Pulse Resp B/P (MAP) Pulse Ox O2 Delivery O2 Flow Rate FiO2 12/14/16 19:26 97 Room Air 12/14/16 15:47 97.9 86 19 118/69 (85) I&O Intake and Output 12/14/16 07:00 Intake Total 845 ml Balance 845 ml Intake Oral 845 ml Current Medications: Meds: Current Medications Haloperidol Lactate (Haldol) 5 mg 1X ONCE IM Last administered on 12/03/16 18 :56; Start 12/03/16 at 18:50; Stop 12/03/16 at 18:51; Status DC Acetaminophen (Tylenol) 650 mg PRN Q6HRS PRN PO PAIN / TEMP Last administered on 12/12/16 07:28; Start 12/03/16 at 20:45 Bupropion HCl (Wellbutrin Xl) 150 mg DAILY PO Last administered on 12/14/16 08 :04; Start 12/04/16 at 09:00 Citalopram Hydrobromide (CeleXA) 15 mg DAILY PO Last administered on 12/04/16 09:32; Start 12/04/16 at 09:00; Stop 12/04/16 at 17:51; Status DC Mirtazapine (Remeron) 15 mg HS PO Last administered on 12/14/16 19:24; Start 12/03/16 at 22:45 Olanzapine (Zyprexa Zydis) 2.5 mg DAILY PO Last administered on 12/14/16 08:04 ; Start 12/04/16 at 09:00 Trazodone HCl (Desyrel) 50 mg QHS PO Last administered on 12/14/16 19:24; Start 12/04/16 at 22:45 Olanzapine (Zyprexa Zydis) 5 mg PRN Q2HR PRN PO Psych Last administered on 12/05 14:28; Start 12/03/16 at 22:00 Bisacodyl (Dulcolax Supp) 10 mg Q4DAYS RC Last administered on 12/11/16 08:38 ; Start 12/04/16 at 09:00; Stop 12/12/16 at 07:06; Status DC Docusate Sodium (Colace) 200 mg HS PO Last administered on 12/14/16 19:24; Start 12/04/16 at 21:00 Losartan Potassium (Cozaar) 50 mg DAILY PO Last administered on 12/14/16 08:03 ; Start 12/04/16 at 09:00 Multi-Ingredient Ointment (Analgesic [place]) 1 mariaa PRN QID PRN TP MUSCLE PAIN; Start 12/04/16 at 06:45 Nystatin (Mycostatin) 1 mariaa BID TP Last administered on 12/14/16 19:27; Start 12/04/16 at 09:00 Nystatin (Nystop) 1 mariaa PRN BID PRN TP SKIN PROTECTION Last administered on 21:55; Start 12/04/16 at 06:45 Oxycodone HCl (Roxicodone) 5 mg TID PO Last administered on 12/14/16 19:26; Start 12/04/16 at 09:00 Polyethylene Glycol (miraLAX) 17 gm DAILY PO Last administered on 12/14/16 08: 04; Start 12/04/16 at 09:00 Capsaicin (Zostrix) 1 mariaa PRN Q8HRS PRN TP PAIN; Start 12/04/16 at 06:45 Loperamide HCl (Imodium) 2 mg PRN Q2HR PRN PO DIARRHEA; Start 12/04/16 at 06:45 Lorazepam (Ativan) 0.5 mg PRN Q2HR PRN TP ANXIETY / AGITATION; Start 12/04/16 at 06:45; Stop 12/04/16 at 13:56; Status DC Magnesium Hydroxide (Milk Of Magnesia) 2,400 mg PRN QHS PRN PO CONSTIPATION; Start 12/04/16 at 06:45 Morphine Sulfate (Roxanol Conc) 10 mg PRN Q4HRS PRN SL PAIN Last administered on 12/10/16 06:02; Start 12/04/16 at 06:45 Ondansetron HCl (Zofran Odt) 4 mg PRN Q4HRS PRN PO NAUSEA; Start 12/04/16 at 06 :45 Oxycodone HCl (Roxicodone) 5 mg PRN TID PRN PO PAIN; Start 12/04/16 at 06:45 Lorazepam (Ativan) 0.5 mg PRN Q2HR PRN TP ANXIETY / AGITATION; Start 12/05/16 at 14:00 Prenat Multivit/ [employer]/Iron/Folic Ac (Multivitamin ) 1 tab DAILYBFRSUP PO Last administered on 12/14/16 16:49; Start 12/04/16 at 17:00 Escitalopram Oxalate (Lexapro) 5 mg DAILY PO Last administered on 12/07/16 08: 32; Start 12/05/16 at 09:00; Stop 12/07/16 at 15:30; Status DC Vitamin D (Vitamin D3) 1,000 unit BIDACLD PO Last administered on 12/14/16 16: 49; Start 12/05/16 at 11:30 Cyanocobalamin (Vitamin B-12) 1,000 mcg DAILYBFRLUN PO Last administered on 13:43; Start 12/05/16 at 11:30 Escitalopram Oxalate (Lexapro) 10 mg DAILY PO Last administered on 12/14/16 08 :03; Start 12/08/16 at 09:00 Trazodone HCl (Desyrel) 50 mg PRN 1X PRN PO INSOMNIA Last administered on 23:19; Start 12/08/16 at 18:30 Divalproex Sodium (Depakote Sprinkles) 125 mg BID92 PO Last administered on 13:43; Start 12/09/16 at 09:00 Bisacodyl (Dulcolax Supp) 10 mg Q4DAYS PRN RC CONSTIPATION; Start 12/12/16 at 07:15 Active Scripts Active Reported Oxycodone Hcl 5 Mg Capsule 5 Mg PO PRN TID PRN Anti-Diarrhea (Loperamide Hcl) 2 Mg Tablet 2 Mg PO PRN Q2HR PRN Gnp Enema Ready To Use (Na Phos,M-B/Na Phos,Di-Ba) 133 Ml Enema 133 Ml RC PRN DAILY PRN Nystatin 15 Gm Cream..g. 1 Mariaa TP BID Trazodone Hcl 50 Mg Tablet 50 Mg PO QHS Miralax (Polyethylene Glycol 3350) 119 Gm Powder 17 Gm PO DAILY Oxycodone Hcl 5 Mg Tablet 5 Mg PO TID Zyprexa Zydis (Olanzapine) 5 Mg Tab.rapdis 2.5 Mg PO DAILY Nuedexta 20-10 Mg Capsule (Dextromethorphan Hbr/Quinidine) 1 Each Capsule 1 Cap PO BID Citalopram Hbr (Citalopram Hydrobromide) 10 Mg Tablet 15 Mg PO DAILY Wellbutrin Xl (Bupropion Hcl) 150 Mg Tab.er.24h 150 Mg PO DAILY Lorazepam 2 Mg/1 Ml Disp.syrin 0.5 Mg TP PRN Q2HR PRN Morphine Sulfate 20 Mg/1 Ml Syringe 10 Mg SL PRN Q4HRS PRN Dulcolax (Bisacodyl) 10 Mg Supp.rect 10 Mg RC Q4DAYS PRN Nystatin 15 Gm Powder 1 Mariaa TP PRN BID PRN Capsaicin 42.5 Gm Cream..g. 1 Mariaa TP PRN Q8HRS PRN Analgesic [place] (Methyl Salicylate/Menthol) 29 Gm Oint...g. 1 Mariaa TP PRN QID PRN Mirtazapine 15 Mg Tablet 15 Mg PO HS Losartan Potassium 50 Mg Tablet 50 Mg PO DAILY Docusate Sodium 100 Mg Capsule 200 Mg PO HS Milk Of Magnesia (Magnesium Hydroxide) 2,400 Mg/10 Ml Oral.susp 2,400 Mg PO PRN QHS PRN Zofran (Ondansetron Hcl) 4 Mg Tablet 4 Mg PO PRN Q4HRS PRN KISHORE JI MD December 14, 2016 21:02
[2016-12-15] MEDS: ACETAMINOPHEN 325 MG TABLET PO PRN (05:11)
[2016-12-15 05:50] VITALS: BP 130/61
[2016-12-15] MEDS: NYSTATIN 100,000 UNIT/GM TOPICAL CREAM 15GM TUBE. TP SCH ×2 (07:50→19:37)
[2016-12-15] MEDS: POLYETHYLENE GLYCOL 3350 17 GM PACKET. PO SCH (07:50)
[2016-12-15] MEDS: ESCITALOPRAM 10 MG TABLET. PO SCH (07:52)
[2016-12-15] MEDS: DIVALPROEX 125 MG CAP.SPRINK PO SCH ×2 (07:52→13:29)
[2016-12-15] MEDS: LOSARTAN 50 MG TABLET. PO SCH (07:52)
[2016-12-15] MEDS: buPROPion XL 150 MG TAB.ER.24H PO SCH (07:52)
[2016-12-15] MEDS: DEXTROMETHORPHAN HBR/QUINIDINE 1 CAPSULE. PO SCH ×2 (07:53→19:36)
[2016-12-15] MEDS: CHOLECALCIFEROL (VITAMIN D3) 1,000 UNIT TABLET PO SCH ×2 (07:58→16:19)
[2016-12-15] MEDS: CYANOCOBALAMIN (VITAMIN B-12) 1,000 MCG TABLET. PO SCH (07:58)
[2016-12-15] MEDS: oxyCODONE IR 5 MG TABLET PO SCH ×3 (08:00→19:37)
[2016-12-15 16:01] VITALS: BP 101/61
[2016-12-15] MEDS: PRENATAL MULTIVITAMIN TABLET. PO SCH (16:19)
[2016-12-15] MEDS: traZODone 50 MG TABLET. PO SCH (19:33)
[2016-12-15] MEDS: DOCUSATE SODIUM 100 MG CAPSULE PO SCH (19:33)
[2016-12-15] MEDS: MIRTAZAPINE 15 MG TABLET PO SCH (19:33)
--- NOTE | 2016-12-15 21:15 | PDOC ---
Exam Maxx Demential Exam: Maxx Note: Please also refer to the separate dictated note~for this date of service dictated separately.~Patient seen individually. Discussed the patient with Nursing staff reviewed the chart.~Reviewed interim history and current functioning. Reviewed vital signs,~Labs/ Radiology~and current medications noted below. Continue current treatment with the changes noted in the dictated addendum note Assessment: Vital Signs: Vital Signs Date Time Temp Pulse Resp B/P (MAP) Pulse Ox O2 Delivery O2 Flow Rate FiO2 12/15/16 19:37 97 Room Air 12/15/16 16:01 97.7 80 18 101/61 (74) I&O Intake and Output 12/15/16 07:00 Intake Total 840 ml Balance 840 ml Intake Oral 840 ml Current Medications: Meds: Current Medications Haloperidol Lactate (Haldol) 5 mg 1X ONCE IM Last administered on 12/03/16 18 :56; Start 12/03/16 at 18:50; Stop 12/03/16 at 18:51; Status DC Acetaminophen (Tylenol) 650 mg PRN Q6HRS PRN PO PAIN / TEMP Last administered on 12/15/16 05:11; Start 12/03/16 at 20:45 Bupropion HCl (Wellbutrin Xl) 150 mg DAILY PO Last administered on 12/15/16 07 :52; Start 12/04/16 at 09:00 Citalopram Hydrobromide (CeleXA) 15 mg DAILY PO Last administered on 12/04/16 09:32; Start 12/04/16 at 09:00; Stop 12/04/16 at 17:51; Status DC Mirtazapine (Remeron) 15 mg HS PO Last administered on 12/15/16 19:33; Start 12/03/16 at 22:45 Olanzapine (Zyprexa Zydis) 2.5 mg DAILY PO Last administered on 12/15/16 07:59 ; Start 12/04/16 at 09:00 Trazodone HCl (Desyrel) 50 mg QHS PO Last administered on 12/15/16 19:33; Start 12/04/16 at 22:45 Olanzapine (Zyprexa Zydis) 5 mg PRN Q2HR PRN PO Psych Last administered on 12/05 14:28; Start 12/03/16 at 22:00 Bisacodyl (Dulcolax Supp) 10 mg Q4DAYS RC Last administered on 12/11/16 08:38 ; Start 12/04/16 at 09:00; Stop 12/12/16 at 07:06; Status DC Docusate Sodium (Colace) 200 mg HS PO Last administered on 12/15/16 19:33; Start 12/04/16 at 21:00 Losartan Potassium (Cozaar) 50 mg DAILY PO Last administered on 12/15/16 07:52 ; Start 12/04/16 at 09:00 Multi-Ingredient Ointment (Analgesic [place]) 1 mariaa PRN QID PRN TP MUSCLE PAIN; Start 12/04/16 at 06:45 Nystatin (Mycostatin) 1 mariaa BID TP Last administered on 12/15/16 19:37; Start 12/04/16 at 09:00 Nystatin (Nystop) 1 mariaa PRN BID PRN TP SKIN PROTECTION Last administered on 21:55; Start 12/04/16 at 06:45 Oxycodone HCl (Roxicodone) 5 mg TID PO Last administered on 12/15/16 19:37; Start 12/04/16 at 09:00 Polyethylene Glycol (miraLAX) 17 gm DAILY PO Last administered on 12/15/16 07: 50; Start 12/04/16 at 09:00 Capsaicin (Zostrix) 1 mariaa PRN Q8HRS PRN TP PAIN; Start 12/04/16 at 06:45 Loperamide HCl (Imodium) 2 mg PRN Q2HR PRN PO DIARRHEA; Start 12/04/16 at 06:45 Lorazepam (Ativan) 0.5 mg PRN Q2HR PRN TP ANXIETY / AGITATION; Start 12/04/16 at 06:45; Stop 12/04/16 at 13:56; Status DC Magnesium Hydroxide (Milk Of Magnesia) 2,400 mg PRN QHS PRN PO CONSTIPATION; Start 12/04/16 at 06:45 Morphine Sulfate (Roxanol Conc) 10 mg PRN Q4HRS PRN SL PAIN Last administered on 12/10/16 06:02; Start 12/04/16 at 06:45 Ondansetron HCl (Zofran Odt) 4 mg PRN Q4HRS PRN PO NAUSEA; Start 12/04/16 at 06 :45 Oxycodone HCl (Roxicodone) 5 mg PRN TID PRN PO PAIN; Start 12/04/16 at 06:45 Lorazepam (Ativan) 0.5 mg PRN Q2HR PRN TP ANXIETY / AGITATION; Start 12/05/16 at 14:00 Prenat Multivit/ [place]/Iron/Folic Ac (Multivitamin ) 1 tab DAILYBFRSUP PO Last administered on 12/15/16 16:19; Start 12/04/16 at 17:00 Escitalopram Oxalate (Lexapro) 5 mg DAILY PO Last administered on 12/07/16 08: 32; Start 12/05/16 at 09:00; Stop 12/07/16 at 15:30; Status DC Vitamin D (Vitamin D3) 1,000 unit BIDACLD PO Last administered on 12/15/16 16: 19; Start 12/05/16 at 11:30 Cyanocobalamin (Vitamin B-12) 1,000 mcg DAILYBFRLUN PO Last administered on 07:58; Start 12/05/16 at 11:30 Escitalopram Oxalate (Lexapro) 10 mg DAILY PO Last administered on 12/15/16 07 :52; Start 12/08/16 at 09:00 Trazodone HCl (Desyrel) 50 mg PRN 1X PRN PO INSOMNIA Last administered on 23:19; Start 12/08/16 at 18:30 Divalproex Sodium (Depakote Sprinkles) 125 mg BID92 PO Last administered on 13:29; Start 12/09/16 at 09:00 Bisacodyl (Dulcolax Supp) 10 mg Q4DAYS PRN RC CONSTIPATION; Start 12/12/16 at 07:15 Active Scripts Active Reported Oxycodone Hcl 5 Mg Capsule 5 Mg PO PRN TID PRN Anti-Diarrhea (Loperamide Hcl) 2 Mg Tablet 2 Mg PO PRN Q2HR PRN Gnp Enema Ready To Use (Na Phos,M-B/Na Phos,Di-Ba) 133 Ml Enema 133 Ml RC PRN DAILY PRN Nystatin 15 Gm Cream..g. 1 Mariaa TP BID Trazodone Hcl 50 Mg Tablet 50 Mg PO QHS Miralax (Polyethylene Glycol 3350) 119 Gm Powder 17 Gm PO DAILY Oxycodone Hcl 5 Mg Tablet 5 Mg PO TID Zyprexa Zydis (Olanzapine) 5 Mg Tab.rapdis 2.5 Mg PO DAILY Nuedexta 20-10 Mg Capsule (Dextromethorphan Hbr/Quinidine) 1 Each Capsule 1 Cap PO BID Citalopram Hbr (Citalopram Hydrobromide) 10 Mg Tablet 15 Mg PO DAILY Wellbutrin Xl (Bupropion Hcl) 150 Mg Tab.er.24h 150 Mg PO DAILY Lorazepam 2 Mg/1 Ml Disp.syrin 0.5 Mg TP PRN Q2HR PRN Morphine Sulfate 20 Mg/1 Ml Syringe 10 Mg SL PRN Q4HRS PRN Dulcolax (Bisacodyl) 10 Mg Supp.rect 10 Mg RC Q4DAYS PRN Nystatin 15 Gm Powder 1 Mariaa TP PRN BID PRN Capsaicin 42.5 Gm Cream..g. 1 Mariaa TP PRN Q8HRS PRN Analgesic [place] (Methyl Salicylate/Menthol) 29 Gm Oint...g. 1 Mariaa TP PRN QID PRN Mirtazapine 15 Mg Tablet 15 Mg PO HS Losartan Potassium 50 Mg Tablet 50 Mg PO DAILY Docusate Sodium 100 Mg Capsule 200 Mg PO HS Milk Of Magnesia (Magnesium Hydroxide) 2,400 Mg/10 Ml Oral.susp 2,400 Mg PO PRN QHS PRN Zofran (Ondansetron Hcl) 4 Mg Tablet 4 Mg PO PRN Q4HRS PRN KISHORE JI MD December 15, 2016 21:15
--- NOTE | 2016-12-15 23:08 | PN ---
DATE: 12/14/2016 This late entry for 12/14/2016 covers elements not covered in my initial note. SUBJECTIVE: The patient remains anxious, tearful, continues to follow me around the unit on my rounds, needing reassurance, holding my hand, unaware of where her room is. REVIEW OF SYSTEMS: No CV, , pulmonary, eye, ENT system symptoms on review. Reliability poor. MENTAL STATUS EXAM: Oriented to herself. Insight, judgment, recent and remote memory, attention, concentration, fund of knowledge poor, consistent with her diagnosis mentioned in my initial note. PLAN: Continue current psychotropics. We will give it another day and consider increasing Luvox starting on 12/15/2016 to 100 mg at bedtime. MAN Valentin JI MD DR: JAILENE/amanda JOB#: [id number] / [id number]
--- NOTE | 2016-12-15 23:10 | PN ---
DATE: 12/13/2016 This is late entry for 12/13/2016 covers elements not covered in my initial note. SUBJECTIVE: The patient remains confused, withdrawn, cooperative with meds and assessment. REVIEW OF SYSTEMS: Hard of hearing. No CV, , pulmonary, eye system symptoms on review. Reliability poor. Gait unsteady, in her wheelchair. MENTAL STATUS EXAM: Oriented to herself. Insight, judgment, recent and remote memory, attention, concentration, fund of knowledge poor, consistent with her diagnosis mentioned in my initial note. PLAN: Continue current psychotropics mentioned in my initial note. MAN Valentin JI MD DR: JAILENE/amanda JOB#: [id number] / [id number]
--- NOTE | 2016-12-15 23:18 | PN ---
DATE: 12/13/2016 PSYCHIATRIC PROGRESS NOTE This is a late entry for 12/13/2016, covers elements not covered in my initial note. SUBJECTIVE: The patient remains anxious, tearful at times with some ongoing mood lability certainly very confused. The patient followed me around the unit during the entire duration of my rounds and then got distracted later. Very needy, tearful, anxious, fearful something bad is happening. REVIEW OF SYSTEMS: No CV, , pulmonary, eye, ENT system symptoms on review. Reliability poor. MENTAL STATUS EXAM: Oriented to herself. Insight, judgment, recent and remote memory, attention, concentration, fund of knowledge poor, consistent with her diagnosis mentioned in my initial note. IMPRESSION: Unchanged from initial note. PLAN: Continue current psychotropics mentioned in my initial note. We need to increase BuSpar further. Valproic acid level is 48, may need to adjust this as well if symptoms persist. MAN Valentin JI MD DR: JAILENE/amanda JOB#: [id number] / [id number]
--- NOTE | 2016-12-16 00:14 | PN ---
DATE: 12/14/2016 PSYCHIATRIC PROGRESS NOTE This is a late entry for 12/14/2016 covers the elements not covered in my initial note. SUBJECTIVE: The patient has been pleasant, having active hallucinations, very confused, grabbing at things in the air, on the floor, talking to people around her when no one is there. 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 REVIEW OF SYSTEMS: Ambulation impaired, in a wheelchair. Poor vision. No CV, , GI system symptoms on review. Reliability poor. MENTAL STATUS EXAM: Oriented to herself. Insight, judgment, recent and remote memory, attention, concentration, fund of knowledge poor, consistent with her diagnosis mentioned in my initial note. PLAN: Continue Nuedexta 1 b.i.d., Wellbutrin-XL 150 mg a day, Zyprexa p.r.n., and Zyprexa 2.5 mg a day, Remeron 15 mg at bedtime, Lexapro 10 mg a day, trazodone and Ativan gel p.r.n., Depakote Sprinkle 125 mg twice a day. Change Zyprexa to Risperdal 0.25 mg at bedtime. Adjust further as clinically indicated. KISHORE JI MD DR: JAILENE/amanda JOB#: [id number] / [id number]
[2016-12-16 05:58] VITALS: BP 157/98
[2016-12-16] MEDS: NYSTATIN 100,000 UNIT/GM TOPICAL CREAM 15GM TUBE. TP SCH ×2 (09:00→20:07)
[2016-12-16] MEDS: ESCITALOPRAM 10 MG TABLET. PO SCH (09:00)
[2016-12-16] MEDS: LOSARTAN 50 MG TABLET. PO SCH (09:42)
[2016-12-16] MEDS: DEXTROMETHORPHAN HBR/QUINIDINE 1 CAPSULE. PO SCH ×2 (09:42→20:06)
[2016-12-16] MEDS: POLYETHYLENE GLYCOL 3350 17 GM PACKET. PO SCH (09:42)
[2016-12-16] MEDS: CHOLECALCIFEROL (VITAMIN D3) 1,000 UNIT TABLET PO SCH ×2 (09:43→17:11)
[2016-12-16] MEDS: buPROPion XL 150 MG TAB.ER.24H PO SCH (09:43)
[2016-12-16] MEDS: DIVALPROEX 125 MG CAP.SPRINK PO SCH ×2 (09:43→14:16)
[2016-12-16] MEDS: oxyCODONE IR 5 MG TABLET PO SCH ×3 (10:03→20:06)
[2016-12-16] MEDS: CYANOCOBALAMIN (VITAMIN B-12) 1,000 MCG TABLET. PO SCH (10:03)
[2016-12-16 16:08] VITALS: BP 136/79
[2016-12-16] MEDS: PRENATAL MULTIVITAMIN TABLET. PO SCH (17:11)
[2016-12-16] MEDS: DOCUSATE SODIUM 100 MG CAPSULE PO SCH (20:04)
[2016-12-16] MEDS: MIRTAZAPINE 15 MG TABLET PO SCH (20:04)
[2016-12-16] MEDS: traZODone 50 MG TABLET. PO SCH (20:04)
--- NOTE | 2016-12-16 21:15 | PDOC ---
Exam Maxx Demential Exam: Maxx Note: Please also refer to the separate dictated note~for this date of service dictated separately.~Patient seen individually. Discussed the patient with Nursing staff reviewed the chart.~Reviewed interim history and current functioning. Reviewed vital signs,~Labs/ Radiology~and current medications noted below. Continue current treatment with the changes noted in the dictated addendum note Assessment: Vital Signs: Vital Signs Date Time Temp Pulse Resp B/P (MAP) Pulse Ox O2 Delivery O2 Flow Rate FiO2 12/16/16 20:06 96 Room Air 12/16/16 16:08 97.9 75 18 136/79 (98) I&O Intake and Output 12/16/16 07:00 Intake Total 600 ml Balance 600 ml Intake Oral 600 ml Current Medications: Meds: Current Medications Haloperidol Lactate (Haldol) 5 mg 1X ONCE IM Last administered on 12/03/16 18 :56; Start 12/03/16 at 18:50; Stop 12/03/16 at 18:51; Status DC Acetaminophen (Tylenol) 650 mg PRN Q6HRS PRN PO PAIN / TEMP Last administered on 12/15/16 05:11; Start 12/03/16 at 20:45 Bupropion HCl (Wellbutrin Xl) 150 mg DAILY PO Last administered on 12/16/16 09 :43; Start 12/04/16 at 09:00 Citalopram Hydrobromide (CeleXA) 15 mg DAILY PO Last administered on 12/04/16 09:32; Start 12/04/16 at 09:00; Stop 12/04/16 at 17:51; Status DC Mirtazapine (Remeron) 15 mg HS PO Last administered on 12/16/16 20:04; Start 12/03/16 at 22:45 Olanzapine (Zyprexa Zydis) 2.5 mg DAILY PO Last administered on 12/16/16 09:43 ; Start 12/04/16 at 09:00 Trazodone HCl (Desyrel) 50 mg QHS PO Last administered on 12/16/16 20:04; Start 12/04/16 at 22:45 Olanzapine (Zyprexa Zydis) 5 mg PRN Q2HR PRN PO Psych Last administered on 12/05 14:28; Start 12/03/16 at 22:00 Bisacodyl (Dulcolax Supp) 10 mg Q4DAYS RC Last administered on 12/11/16 08:38 ; Start 12/04/16 at 09:00; Stop 12/12/16 at 07:06; Status DC Docusate Sodium (Colace) 200 mg HS PO Last administered on 12/16/16 20:04; Start 12/04/16 at 21:00 Losartan Potassium (Cozaar) 50 mg DAILY PO Last administered on 12/16/16 09:42 ; Start 12/04/16 at 09:00 Multi-Ingredient Ointment (Analgesic [place]) 1 mariaa PRN QID PRN TP MUSCLE PAIN; Start 12/04/16 at 06:45 Nystatin (Mycostatin) 1 mariaa BID TP Last administered on 12/16/16 20:07; Start 12/04/16 at 09:00 Nystatin (Nystop) 1 mariaa PRN BID PRN TP SKIN PROTECTION Last administered on 21:55; Start 12/04/16 at 06:45 Oxycodone HCl (Roxicodone) 5 mg TID PO Last administered on 12/16/16 20:06; Start 12/04/16 at 09:00 Polyethylene Glycol (miraLAX) 17 gm DAILY PO Last administered on 12/16/16 09: 42; Start 12/04/16 at 09:00 Capsaicin (Zostrix) 1 mariaa PRN Q8HRS PRN TP PAIN; Start 12/04/16 at 06:45 Loperamide HCl (Imodium) 2 mg PRN Q2HR PRN PO DIARRHEA; Start 12/04/16 at 06:45 Lorazepam (Ativan) 0.5 mg PRN Q2HR PRN TP ANXIETY / AGITATION; Start 12/04/16 at 06:45; Stop 12/04/16 at 13:56; Status DC Magnesium Hydroxide (Milk Of Magnesia) 2,400 mg PRN QHS PRN PO CONSTIPATION; Start 12/04/16 at 06:45 Morphine Sulfate (Roxanol Conc) 10 mg PRN Q4HRS PRN SL PAIN Last administered on 12/10/16 06:02; Start 12/04/16 at 06:45 Ondansetron HCl (Zofran Odt) 4 mg PRN Q4HRS PRN PO NAUSEA; Start 12/04/16 at 06 :45 Oxycodone HCl (Roxicodone) 5 mg PRN TID PRN PO PAIN; Start 12/04/16 at 06:45 Lorazepam (Ativan) 0.5 mg PRN Q2HR PRN TP ANXIETY / AGITATION; Start 12/05/16 at 14:00 Prenat Multivit/ [place]/Iron/Folic Ac (Multivitamin ) 1 tab DAILYBFRSUP PO Last administered on 12/16/16 17:11; Start 12/04/16 at 17:00 Escitalopram Oxalate (Lexapro) 5 mg DAILY PO Last administered on 12/07/16 08: 32; Start 12/05/16 at 09:00; Stop 12/07/16 at 15:30; Status DC Vitamin D (Vitamin D3) 1,000 unit BIDACLD PO Last administered on 12/16/16 17: 11; Start 12/05/16 at 11:30 Cyanocobalamin (Vitamin B-12) 1,000 mcg DAILYBFRLUN PO Last administered on 10:03; Start 12/05/16 at 11:30 Escitalopram Oxalate (Lexapro) 10 mg DAILY PO Last administered on 12/16/16 09 :00; Start 12/08/16 at 09:00 Trazodone HCl (Desyrel) 50 mg PRN 1X PRN PO INSOMNIA Last administered on 23:19; Start 12/08/16 at 18:30 Divalproex Sodium (Depakote Sprinkles) 125 mg BID92 PO Last administered on 14:16; Start 12/09/16 at 09:00 Bisacodyl (Dulcolax Supp) 10 mg Q4DAYS PRN RC CONSTIPATION; Start 12/12/16 at 07:15 Active Scripts Active Reported Oxycodone Hcl 5 Mg Capsule 5 Mg PO PRN TID PRN Anti-Diarrhea (Loperamide Hcl) 2 Mg Tablet 2 Mg PO PRN Q2HR PRN Gnp Enema Ready To Use (Na Phos,M-B/Na Phos,Di-Ba) 133 Ml Enema 133 Ml RC PRN DAILY PRN Nystatin 15 Gm Cream..g. 1 Mariaa TP BID Trazodone Hcl 50 Mg Tablet 50 Mg PO QHS Miralax (Polyethylene Glycol 3350) 119 Gm Powder 17 Gm PO DAILY Oxycodone Hcl 5 Mg Tablet 5 Mg PO TID Zyprexa Zydis (Olanzapine) 5 Mg Tab.rapdis 2.5 Mg PO DAILY Nuedexta 20-10 Mg Capsule (Dextromethorphan Hbr/Quinidine) 1 Each Capsule 1 Cap PO BID Citalopram Hbr (Citalopram Hydrobromide) 10 Mg Tablet 15 Mg PO DAILY Wellbutrin Xl (Bupropion Hcl) 150 Mg Tab.er.24h 150 Mg PO DAILY Lorazepam 2 Mg/1 Ml Disp.syrin 0.5 Mg TP PRN Q2HR PRN Morphine Sulfate 20 Mg/1 Ml Syringe 10 Mg SL PRN Q4HRS PRN Dulcolax (Bisacodyl) 10 Mg Supp.rect 10 Mg RC Q4DAYS PRN Nystatin 15 Gm Powder 1 Mariaa TP PRN BID PRN Capsaicin 42.5 Gm Cream..g. 1 Mariaa TP PRN Q8HRS PRN Analgesic [place] (Methyl Salicylate/Menthol) 29 Gm Oint...g. 1 Mariaa TP PRN QID PRN Mirtazapine 15 Mg Tablet 15 Mg PO HS Losartan Potassium 50 Mg Tablet 50 Mg PO DAILY Docusate Sodium 100 Mg Capsule 200 Mg PO HS Milk Of Magnesia (Magnesium Hydroxide) 2,400 Mg/10 Ml Oral.susp 2,400 Mg PO PRN QHS PRN Zofran (Ondansetron Hcl) 4 Mg Tablet 4 Mg PO PRN Q4HRS PRN KISHORE JI MD December 16, 2016 21:15
[2016-12-17 05:48] VITALS: BP 146/76
[2016-12-17] MEDS: buPROPion XL 150 MG TAB.ER.24H PO SCH (08:10)
[2016-12-17] MEDS: DIVALPROEX 125 MG CAP.SPRINK PO SCH ×3 (08:10→19:44)
[2016-12-17] MEDS: ESCITALOPRAM 10 MG TABLET. PO SCH (08:10)
[2016-12-17] MEDS: POLYETHYLENE GLYCOL 3350 17 GM PACKET. PO SCH (08:10)
[2016-12-17] MEDS: DEXTROMETHORPHAN HBR/QUINIDINE 1 CAPSULE. PO SCH ×2 (08:10→19:55)
[2016-12-17] MEDS: CHOLECALCIFEROL (VITAMIN D3) 1,000 UNIT TABLET PO SCH ×2 (08:10→16:54)
[2016-12-17] MEDS: LOSARTAN 50 MG TABLET. PO SCH (08:10)
[2016-12-17] MEDS: oxyCODONE IR 5 MG TABLET PO SCH ×3 (08:12→19:48)
--- NOTE | 2016-12-17 08:54 | PN ---
DATE: 12/15/2016 PSYCHIATRIC PROGRESS NOTE This is a late entry for 12/15/2016, covers elements not covered in my initial note. SUBJECTIVE: The patient remains withdrawn, has done better during the day, less hallucinations noted, noted to be foot tapping to music per nursing report. REVIEW OF SYSTEMS: Poor vision, impaired ambulation in a wheelchair. No CV, , pulmonary, eye system symptoms on review. MENTAL STATUS EXAM: Oriented to herself. Insight, judgment, recent and remote memory, attention, concentration, fund of knowledge poor, consistent with her diagnosis mentioned in my initial note. PLAN: Continue psychotropics mentioned in my initial note. Adjust as clinically indicated. MAN Valentin JI MD DR: JAILENE/amanda JOB#: [id number] / [id number]
[2016-12-17] MEDS: NYSTATIN 100,000 UNIT/GM TOPICAL CREAM 15GM TUBE. TP SCH ×2 (09:00→19:54)
[2016-12-17] MEDS: CYANOCOBALAMIN (VITAMIN B-12) 1,000 MCG TABLET. PO SCH (12:07)
[2016-12-17 16:11] VITALS: BP 125/79
[2016-12-17] MEDS: PRENATAL MULTIVITAMIN TABLET. PO SCH (16:54)
[2016-12-17] MEDS: traZODone 50 MG TABLET. PO SCH (19:44)
[2016-12-17] MEDS: MIRTAZAPINE 15 MG TABLET PO SCH (19:44)
[2016-12-17] MEDS: DOCUSATE SODIUM 100 MG CAPSULE PO SCH (19:44)
[2016-12-17] MEDS: LORazepam TOPICAL 0.5 MG/ML GEL TP PRN (19:49)
--- NOTE | 2016-12-17 21:16 | PDOC ---
Exam Maxx Demential Exam: Maxx Note: Please also refer to the separate dictated note~for this date of service dictated separately.~Patient seen individually. Discussed the patient with Nursing staff reviewed the chart.~Reviewed interim history and current functioning. Reviewed vital signs,~Labs/ Radiology~and current medications noted below. Continue current treatment with the changes noted in the dictated addendum note Assessment: Vital Signs: Vital Signs Date Time Temp Pulse Resp B/P (MAP) Pulse Ox O2 Delivery O2 Flow Rate FiO2 12/17/16 19:48 16 Room Air 12/17/16 16:11 97.8 74 125/79 (94) 97 I&O Intake and Output 12/17/16 07:00 Intake Total 720 ml Balance 720 ml Intake Oral 720 ml # Voids 3 Current Medications: Meds: Current Medications Haloperidol Lactate (Haldol) 5 mg 1X ONCE IM Last administered on 12/03/16 18 :56; Start 12/03/16 at 18:50; Stop 12/03/16 at 18:51; Status DC Acetaminophen (Tylenol) 650 mg PRN Q6HRS PRN PO PAIN / TEMP Last administered on 12/15/16 05:11; Start 12/03/16 at 20:45 Bupropion HCl (Wellbutrin Xl) 150 mg DAILY PO Last administered on 12/17/16 08: 10; Start 12/04/16 at 09:00 Citalopram Hydrobromide (CeleXA) 15 mg DAILY PO Last administered on 12/04/16 09:32; Start 12/04/16 at 09:00; Stop 12/04/16 at 17:51; Status DC Mirtazapine (Remeron) 15 mg HS PO Last administered on 12/17/16 19:44; Start at 22:45 Olanzapine (Zyprexa Zydis) 2.5 mg DAILY PO Last administered on 12/17/16 08:10 ; Start 12/04/16 at 09:00 Trazodone HCl (Desyrel) 50 mg QHS PO Last administered on 12/17/16 19:44; Start 12/04/16 at 22:45 Olanzapine (Zyprexa Zydis) 5 mg PRN Q2HR PRN PO Psych Last administered on 12/05 14:28; Start 12/03/16 at 22:00 Bisacodyl (Dulcolax Supp) 10 mg Q4DAYS RC Last administered on 12/11/16 08:38 ; Start 12/04/16 at 09:00; Stop 12/12/16 at 07:06; Status DC Docusate Sodium (Colace) 200 mg HS PO Last administered on 12/17/16 19:44; Start 12/04/16 at 21:00 Losartan Potassium (Cozaar) 50 mg DAILY PO Last administered on 12/17/16 08:10 ; Start 12/04/16 at 09:00 Multi-Ingredient Ointment (Analgesic [place]) 1 mariaa PRN QID PRN TP MUSCLE PAIN; Start 12/04/16 at 06:45 Nystatin (Mycostatin) 1 mariaa BID TP Last administered on 12/17/16 19:54; Start 12/04/16 at 09:00 Nystatin (Nystop) 1 mariaa PRN BID PRN TP SKIN PROTECTION Last administered on 21:55; Start 12/04/16 at 06:45 Oxycodone HCl (Roxicodone) 5 mg TID PO Last administered on 12/17/16 19:48; Start 12/04/16 at 09:00 Polyethylene Glycol (miraLAX) 17 gm DAILY PO Last administered on 12/17/16 08: 10; Start 12/04/16 at 09:00 Capsaicin (Zostrix) 1 mariaa PRN Q8HRS PRN TP PAIN; Start 12/04/16 at 06:45 Loperamide HCl (Imodium) 2 mg PRN Q2HR PRN PO DIARRHEA; Start 12/04/16 at 06:45 Lorazepam (Ativan) 0.5 mg PRN Q2HR PRN TP ANXIETY / AGITATION; Start 12/04/16 at 06:45; Stop 12/04/16 at 13:56; Status DC Magnesium Hydroxide (Milk Of Magnesia) 2,400 mg PRN QHS PRN PO CONSTIPATION; Start 12/04/16 at 06:45 Morphine Sulfate (Roxanol Conc) 10 mg PRN Q4HRS PRN SL PAIN Last administered on 12/10/16 06:02; Start 12/04/16 at 06:45 Ondansetron HCl (Zofran Odt) 4 mg PRN Q4HRS PRN PO NAUSEA; Start 12/04/16 at 06 :45 Oxycodone HCl (Roxicodone) 5 mg PRN TID PRN PO PAIN; Start 12/04/16 at 06:45 Lorazepam (Ativan) 0.5 mg PRN Q2HR PRN TP ANXIETY / AGITATION Last administered on 12/17/16 19:49; Start 12/05/16 at 14:00 Prenat Multivit/ [place]/Iron/Folic Ac (Multivitamin ) 1 tab DAILYBFRSUP PO Last administered on 12/17/16 16:54; Start 12/04/16 at 17:00 Escitalopram Oxalate (Lexapro) 5 mg DAILY PO Last administered on 12/07/16 08: 32; Start 12/05/16 at 09:00; Stop 12/07/16 at 15:30; Status DC Vitamin D (Vitamin D3) 1,000 unit BIDACLD PO Last administered on 12/17/16 16: 54; Start 12/05/16 at 11:30 Cyanocobalamin (Vitamin B-12) 1,000 mcg DAILYBFRLUN PO Last administered on 12/17 12:07; Start 12/05/16 at 11:30 Escitalopram Oxalate (Lexapro) 10 mg DAILY PO Last administered on 12/17/16 08: 10; Start 12/08/16 at 09:00 Trazodone HCl (Desyrel) 50 mg PRN 1X PRN PO INSOMNIA Last administered on 23:19; Start 12/08/16 at 18:30 Divalproex Sodium (Depakote Sprinkles) 125 mg BID92 PO Last administered on 12/17 08:10; Start 12/09/16 at 09:00; Stop 12/17/16 at 10:48; Status DC Bisacodyl (Dulcolax Supp) 10 mg Q4DAYS PRN RC CONSTIPATION; Start 12/12/16 at 07:15 Divalproex Sodium (Depakote Sprinkles) 125 mg TID PO Last administered on 19:44; Start 12/17/16 at 14:00 Active Scripts Active Reported Oxycodone Hcl 5 Mg Capsule 5 Mg PO PRN TID PRN Anti-Diarrhea (Loperamide Hcl) 2 Mg Tablet 2 Mg PO PRN Q2HR PRN Gnp Enema Ready To Use (Na Phos,M-B/Na Phos,Di-Ba) 133 Ml Enema 133 Ml RC PRN DAILY PRN Nystatin 15 Gm Cream..g. 1 Mariaa TP BID Trazodone Hcl 50 Mg Tablet 50 Mg PO QHS Miralax (Polyethylene Glycol 3350) 119 Gm Powder 17 Gm PO DAILY Oxycodone Hcl 5 Mg Tablet 5 Mg PO TID Zyprexa Zydis (Olanzapine) 5 Mg Tab.rapdis 2.5 Mg PO DAILY Nuedexta 20-10 Mg Capsule (Dextromethorphan Hbr/Quinidine) 1 Each Capsule 1 Cap PO BID Citalopram Hbr (Citalopram Hydrobromide) 10 Mg Tablet 15 Mg PO DAILY Wellbutrin Xl (Bupropion Hcl) 150 Mg Tab.er.24h 150 Mg PO DAILY Lorazepam 2 Mg/1 Ml Disp.syrin 0.5 Mg TP PRN Q2HR PRN Morphine Sulfate 20 Mg/1 Ml Syringe 10 Mg SL PRN Q4HRS PRN Dulcolax (Bisacodyl) 10 Mg Supp.rect 10 Mg RC Q4DAYS PRN Nystatin 15 Gm Powder 1 Mariaa TP PRN BID PRN Capsaicin 42.5 Gm Cream..g. 1 Mariaa TP PRN Q8HRS PRN Analgesic [place] (Methyl Salicylate/Menthol) 29 Gm Oint...g. 1 Mariaa TP PRN QID PRN Mirtazapine 15 Mg Tablet 15 Mg PO HS Losartan Potassium 50 Mg Tablet 50 Mg PO DAILY Docusate Sodium 100 Mg Capsule 200 Mg PO HS Milk Of Magnesia (Magnesium Hydroxide) 2,400 Mg/10 Ml Oral.susp 2,400 Mg PO PRN QHS PRN Zofran (Ondansetron Hcl) 4 Mg Tablet 4 Mg PO PRN Q4HRS PRN Diagnosis: Problems: (1) Dementia (2) Major depression (3) Cognitive impairment (4) Anxiety state (5) Dementia with behavioral problem (6) Anxiety disorder (7) Dementia in Alzheimer's disease with delusions (8) Dementia in Alzheimer's disease with depression (9) Dementia, vascular, with delusions (10) Dementia, vascular, with depression (11) Impulse control disorder KISHORE JI MD Dec 17, 2016 21:16
[2016-12-17] MEDS: traZODone 50 MG TABLET. PO PRN (23:07)
[2016-12-18 06:23] VITALS: BP 146/80
[2016-12-18] MEDS: LOSARTAN 50 MG TABLET. PO SCH (09:46)
[2016-12-18] MEDS: ESCITALOPRAM 10 MG TABLET. PO SCH (09:46)
[2016-12-18] MEDS: DIVALPROEX 125 MG CAP.SPRINK PO SCH ×3 (09:47→20:09)
[2016-12-18] MEDS: buPROPion XL 150 MG TAB.ER.24H PO SCH (09:47)
[2016-12-18] MEDS: POLYETHYLENE GLYCOL 3350 17 GM PACKET. PO SCH (09:47)
[2016-12-18] MEDS: DEXTROMETHORPHAN HBR/QUINIDINE 1 CAPSULE. PO SCH ×2 (09:47→20:12)
[2016-12-18] MEDS: oxyCODONE IR 5 MG TABLET PO SCH ×3 (09:51→20:08)
[2016-12-18] MEDS: NYSTATIN 100,000 UNIT/GM TOPICAL CREAM 15GM TUBE. TP SCH ×2 (09:52→20:07)
[2016-12-18] MEDS: CYANOCOBALAMIN (VITAMIN B-12) 1,000 MCG TABLET. PO SCH (11:48)
[2016-12-18] MEDS: CHOLECALCIFEROL (VITAMIN D3) 1,000 UNIT TABLET PO SCH ×2 (11:49→16:57)
[2016-12-18 16:01] VITALS: BP 120/80
[2016-12-18] MEDS: PRENATAL MULTIVITAMIN TABLET. PO SCH (16:57)
[2016-12-18] MEDS: traZODone 50 MG TABLET. PO SCH (20:08)
[2016-12-18] MEDS: MIRTAZAPINE 15 MG TABLET PO SCH (20:09)
[2016-12-18] MEDS: DOCUSATE SODIUM 100 MG CAPSULE PO SCH (20:15)
--- NOTE | 2016-12-18 20:46 | PDOC ---
Exam Maxx Demential Exam: Maxx Note: Please also refer to the separate dictated note~for this date of service dictated separately.~Patient seen individually. Discussed the patient with Nursing staff reviewed the chart.~Reviewed interim history and current functioning. Reviewed vital signs,~Labs/ Radiology~and current medications noted below. Continue current treatment with the changes noted in the dictated addendum note Assessment: Vital Signs: Vital Signs Date Time Temp Pulse Resp B/P (MAP) Pulse Ox O2 Delivery O2 Flow Rate FiO2 12/18/16 20:08 16 Room Air 12/18/16 16:01 97.9 73 120/80 (93) 95 I&O Intake and Output 12/18/16 07:00 Intake Total 920 ml Balance 920 ml Intake Oral 920 ml # Voids 1 # Bowel Movements 1 Current Medications: Meds: Current Medications Haloperidol Lactate (Haldol) 5 mg 1X ONCE IM Last administered on 12/03/16 18 :56; Start 12/03/16 at 18:50; Stop 12/03/16 at 18:51; Status DC Acetaminophen (Tylenol) 650 mg PRN Q6HRS PRN PO PAIN / TEMP Last administered on 12/15/16 05:11; Start 12/03/16 at 20:45 Bupropion HCl (Wellbutrin Xl) 150 mg DAILY PO Last administered on 12/18/16 09: 47; Start 12/04/16 at 09:00 Citalopram Hydrobromide (CeleXA) 15 mg DAILY PO Last administered on 12/04/16 09:32; Start 12/04/16 at 09:00; Stop 12/04/16 at 17:51; Status DC Mirtazapine (Remeron) 15 mg HS PO Last administered on 12/18/16 20:09; Start at 22:45 Olanzapine (Zyprexa Zydis) 2.5 mg DAILY PO Last administered on 12/18/16 09:47 ; Start 12/04/16 at 09:00 Trazodone HCl (Desyrel) 50 mg QHS PO Last administered on 12/18/16 20:08; Start 12/04/16 at 22:45 Olanzapine (Zyprexa Zydis) 5 mg PRN Q2HR PRN PO Psych Last administered on 23:07; Start 12/03/16 at 22:00 Bisacodyl (Dulcolax Supp) 10 mg Q4DAYS RC Last administered on 12/11/16 08:38 ; Start 12/04/16 at 09:00; Stop 12/12/16 at 07:06; Status DC Docusate Sodium (Colace) 200 mg HS PO Last administered on 12/18/16 20:15; Start 12/04/16 at 21:00 Losartan Potassium (Cozaar) 50 mg DAILY PO Last administered on 12/18/16 09:46 ; Start 12/04/16 at 09:00 Multi-Ingredient Ointment (Analgesic [place]) 1 mariaa PRN QID PRN TP MUSCLE PAIN; Start 12/04/16 at 06:45 Nystatin (Mycostatin) 1 mariaa BID TP Last administered on 12/18/16 20:07; Start 12/04/16 at 09:00 Nystatin (Nystop) 1 mariaa PRN BID PRN TP SKIN PROTECTION Last administered on 21:55; Start 12/04/16 at 06:45 Oxycodone HCl (Roxicodone) 5 mg TID PO Last administered on 12/18/16 20:08; Start 12/04/16 at 09:00 Polyethylene Glycol (miraLAX) 17 gm DAILY PO Last administered on 12/18/16 09: 47; Start 12/04/16 at 09:00 Capsaicin (Zostrix) 1 mariaa PRN Q8HRS PRN TP PAIN; Start 12/04/16 at 06:45 Loperamide HCl (Imodium) 2 mg PRN Q2HR PRN PO DIARRHEA; Start 12/04/16 at 06:45 Lorazepam (Ativan) 0.5 mg PRN Q2HR PRN TP ANXIETY / AGITATION; Start 12/04/16 at 06:45; Stop 12/04/16 at 13:56; Status DC Magnesium Hydroxide (Milk Of Magnesia) 2,400 mg PRN QHS PRN PO CONSTIPATION; Start 12/04/16 at 06:45 Morphine Sulfate (Roxanol Conc) 10 mg PRN Q4HRS PRN SL PAIN Last administered on 12/10/16 06:02; Start 12/04/16 at 06:45 Ondansetron HCl (Zofran Odt) 4 mg PRN Q4HRS PRN PO NAUSEA; Start 12/04/16 at 06 :45 Oxycodone HCl (Roxicodone) 5 mg PRN TID PRN PO PAIN; Start 12/04/16 at 06:45 Lorazepam (Ativan) 0.5 mg PRN Q2HR PRN TP ANXIETY / AGITATION Last administered on 12/17/16 19:49; Start 12/05/16 at 14:00 Prenat Multivit/ [place]/Iron/Folic Ac (Multivitamin ) 1 tab DAILYBFRSUP PO Last administered on 12/18/16 16:57; Start 12/04/16 at 17:00 Escitalopram Oxalate (Lexapro) 5 mg DAILY PO Last administered on 12/07/16 08: 32; Start 12/05/16 at 09:00; Stop 12/07/16 at 15:30; Status DC Vitamin D (Vitamin D3) 1,000 unit BIDACLD PO Last administered on 12/18/16 16: 57; Start 12/05/16 at 11:30 Cyanocobalamin (Vitamin B-12) 1,000 mcg DAILYBFRLUN PO Last administered on 12/18 11:48; Start 12/05/16 at 11:30 Escitalopram Oxalate (Lexapro) 10 mg DAILY PO Last administered on 12/18/16 09: 46; Start 12/08/16 at 09:00 Trazodone HCl (Desyrel) 50 mg PRN 1X PRN PO INSOMNIA Last administered on 23:07; Start 12/08/16 at 18:30 Divalproex Sodium (Depakote Sprinkles) 125 mg BID92 PO Last administered on 12/17 08:10; Start 12/09/16 at 09:00; Stop 12/17/16 at 10:48; Status DC Bisacodyl (Dulcolax Supp) 10 mg Q4DAYS PRN RC CONSTIPATION; Start 12/12/16 at 07:15 Divalproex Sodium (Depakote Sprinkles) 125 mg TID PO Last administered on 20:09; Start 12/17/16 at 14:00 Active Scripts Active Reported Oxycodone Hcl 5 Mg Capsule 5 Mg PO PRN TID PRN Anti-Diarrhea (Loperamide Hcl) 2 Mg Tablet 2 Mg PO PRN Q2HR PRN Gnp Enema Ready To Use (Na Phos,M-B/Na Phos,Di-Ba) 133 Ml Enema 133 Ml RC PRN DAILY PRN Nystatin 15 Gm Cream..g. 1 Mariaa TP BID Trazodone Hcl 50 Mg Tablet 50 Mg PO QHS Miralax (Polyethylene Glycol 3350) 119 Gm Powder 17 Gm PO DAILY Oxycodone Hcl 5 Mg Tablet 5 Mg PO TID Zyprexa Zydis (Olanzapine) 5 Mg Tab.rapdis 2.5 Mg PO DAILY Nuedexta 20-10 Mg Capsule (Dextromethorphan Hbr/Quinidine) 1 Each Capsule 1 Cap PO BID Citalopram Hbr (Citalopram Hydrobromide) 10 Mg Tablet 15 Mg PO DAILY Wellbutrin Xl (Bupropion Hcl) 150 Mg Tab.er.24h 150 Mg PO DAILY Lorazepam 2 Mg/1 Ml Disp.syrin 0.5 Mg TP PRN Q2HR PRN Morphine Sulfate 20 Mg/1 Ml Syringe 10 Mg SL PRN Q4HRS PRN Dulcolax (Bisacodyl) 10 Mg Supp.rect 10 Mg RC Q4DAYS PRN Nystatin 15 Gm Powder 1 Mariaa TP PRN BID PRN Capsaicin 42.5 Gm Cream..g. 1 Mariaa TP PRN Q8HRS PRN Analgesic [place] (Methyl Salicylate/Menthol) 29 Gm Oint...g. 1 Mariaa TP PRN QID PRN Mirtazapine 15 Mg Tablet 15 Mg PO HS Losartan Potassium 50 Mg Tablet 50 Mg PO DAILY Docusate Sodium 100 Mg Capsule 200 Mg PO HS Milk Of Magnesia (Magnesium Hydroxide) 2,400 Mg/10 Ml Oral.susp 2,400 Mg PO PRN QHS PRN Zofran (Ondansetron Hcl) 4 Mg Tablet 4 Mg PO PRN Q4HRS PRN Diagnosis: Problems: (1) Dementia (2) Major depression (3) Prolonged grief reaction (4) Dementia with behavioral problem (5) Anxiety disorder (6) Dementia in Alzheimer's disease with delusions (7) Dementia in Alzheimer's disease with depression (8) Dementia, vascular, with delusions (9) Dementia, vascular, with depression (10) Impulse control disorder KISHORE JI MD Dec 18, 2016 20:46
--- NOTE | 2016-12-19 02:56 | PN ---
DATE: 12/16/2016 This is a late entry for 12/16/2016 and covers the elements not covered in my initial note. SUBJECTIVE: The patient is doing a little better, less anxious, restless, certainly confused and being blind to complicate this. REVIEW OF SYSTEMS: Positive for her blindness and impaired ambulation in a wheelchair. No CV, , GI system symptoms on review. Reliability poor. MENTAL STATUS EXAM: Oriented to herself. Insight, judgment, recent and remote memory, attention, concentration, fund of knowledge poor, consistent with her diagnosis. She has not been aggressive and not yelling. She did have a chocolate cake, which nursing staff fed her and then after this, she was seeing chocolate cake on the television and in the room and in the sitting area as well; seem to be a little obsessed about this. LABORATORY DATA: Reviewed. IMPRESSION: Major neurocognitive disorder, Alzheimer, vascular with depression, delusion, behavioral disturbance, legally blind. Rest diagnoses unchanged from initial note. PLAN: Continue current psychotropics mentioned in my initial note. We will consider adjusting Depakote if mood lability persists. KISHORE JI MD DR: JAILENE/amanda JOB#: [id number] / [id number]
--- NOTE | 2016-12-19 02:59 | PN ---
DATE: 12/17/2016 This is a late entry for 12/17/2016 and covers the elements not covered in my initial note. SUBJECTIVE: The patient was staffed at a treatment team meeting with the entire team morning of 12/17/2016, seen individually at length the evening of 12/17/2016. She has had a hospice eval the day before. The previous evening, she was hollering, yelling at times, but better during the day on 12/17/2016. REVIEW OF SYSTEMS: Ambulation impaired. She is legally blind. No CV, , pulmonary, eye system symptoms on review other than as noted above. MENTAL STATUS EXAM: Oriented to herself. Insight, judgment, recent and remote memory, attention, concentration, fund of knowledge poor, consistent with her diagnosis mentioned in my initial note. PLAN: Valproic acid level is subtherapeutic at 30, increase Depakote Sprinkles from 125 b.i.d. to 125 t.i.d. Check labs and the level in 3 days. Maintain the rest of the psychotropics unchanged. KISHORE JI MD DR: JAILENE/amanda JOB#: [id number] / [id number]
[2016-12-19 06:07] VITALS: BP 132/77
[2016-12-19] MEDS: buPROPion XL 150 MG TAB.ER.24H PO SCH (08:30)
[2016-12-19] MEDS: ESCITALOPRAM 10 MG TABLET. PO SCH (08:30)
[2016-12-19] MEDS: LOSARTAN 50 MG TABLET. PO SCH (08:30)
[2016-12-19] MEDS: DEXTROMETHORPHAN HBR/QUINIDINE 1 CAPSULE. PO SCH ×2 (08:30→20:17)
[2016-12-19] MEDS: DIVALPROEX 125 MG CAP.SPRINK PO SCH ×3 (08:31→20:09)
[2016-12-19] MEDS: POLYETHYLENE GLYCOL 3350 17 GM PACKET. PO SCH (08:31)
[2016-12-19] MEDS: NYSTATIN 100,000 UNIT/GM TOPICAL CREAM 15GM TUBE. TP SCH (08:33)
[2016-12-19] MEDS: oxyCODONE IR 5 MG TABLET PO SCH ×3 (08:33→20:11)
[2016-12-19] MEDS: CHOLECALCIFEROL (VITAMIN D3) 1,000 UNIT TABLET PO SCH ×2 (11:49→16:35)
[2016-12-19] MEDS: CYANOCOBALAMIN (VITAMIN B-12) 1,000 MCG TABLET. PO SCH (11:49)
[2016-12-19 15:56] VITALS: BP 125/45
[2016-12-19] MEDS: PRENATAL MULTIVITAMIN TABLET. PO SCH (16:35)
[2016-12-19] MEDS: DOCUSATE SODIUM 100 MG CAPSULE PO SCH (20:09)
[2016-12-19] MEDS: traZODone 50 MG TABLET. PO SCH (20:09)
[2016-12-19] MEDS: MIRTAZAPINE 15 MG TABLET PO SCH (20:09)
[2016-12-19] MEDS: LORazepam TOPICAL 0.5 MG/ML GEL TP PRN (20:56)
--- NOTE | 2016-12-19 22:02 | PDOC ---
Exam Maxx Demential Exam: Maxx Note: Please also refer to the separate dictated note~for this date of service dictated separately.~Patient seen individually. Discussed the patient with Nursing staff reviewed the chart.~Reviewed interim history and current functioning. Reviewed vital signs,~Labs/ Radiology~and current medications noted below. Continue current treatment with the changes noted in the dictated addendum note Assessment: Vital Signs: Vital Signs Date Time Temp Pulse Resp B/P (MAP) Pulse Ox O2 Delivery O2 Flow Rate FiO2 12/19/16 20:11 16 Room Air 12/19/16 15:56 97.6 97 125/45 (71) 96 I&O Intake and Output 12/19/16 07:00 Intake Total 840 ml Balance 840 ml Intake Oral 840 ml # Voids 1 Current Medications: Meds: Current Medications Haloperidol Lactate (Haldol) 5 mg 1X ONCE IM Last administered on 12/03/16 18 :56; Start 12/03/16 at 18:50; Stop 12/03/16 at 18:51; Status DC Acetaminophen (Tylenol) 650 mg PRN Q6HRS PRN PO PAIN / TEMP Last administered on 12/15/16 05:11; Start 12/03/16 at 20:45 Bupropion HCl (Wellbutrin Xl) 150 mg DAILY PO Last administered on 12/19/16 08: 30; Start 12/04/16 at 09:00 Citalopram Hydrobromide (CeleXA) 15 mg DAILY PO Last administered on 12/04/16 09:32; Start 12/04/16 at 09:00; Stop 12/04/16 at 17:51; Status DC Mirtazapine (Remeron) 15 mg HS PO Last administered on 12/19/16 20:09; Start at 22:45 Olanzapine (Zyprexa Zydis) 2.5 mg DAILY PO Last administered on 12/19/16 08:30 ; Start 12/04/16 at 09:00 Trazodone HCl (Desyrel) 50 mg QHS PO Last administered on 12/19/16 20:09; Start 12/04/16 at 22:45 Olanzapine (Zyprexa Zydis) 5 mg PRN Q2HR PRN PO Psych Last administered on 16:35; Start 12/03/16 at 22:00 Bisacodyl (Dulcolax Supp) 10 mg Q4DAYS RC Last administered on 12/11/16 08:38 ; Start 12/04/16 at 09:00; Stop 12/12/16 at 07:06; Status DC Docusate Sodium (Colace) 200 mg HS PO Last administered on 12/19/16 20:09; Start 12/04/16 at 21:00 Losartan Potassium (Cozaar) 50 mg DAILY PO Last administered on 12/19/16 08:30 ; Start 12/04/16 at 09:00 Multi-Ingredient Ointment (Analgesic [place]) 1 mariaa PRN QID PRN TP MUSCLE PAIN; Start 12/04/16 at 06:45 Nystatin (Mycostatin) 1 mariaa BID TP Last administered on 12/19/16 08:33; Start 12/04/16 at 09:00; Stop 12/19/16 at 10:02; Status DC Nystatin (Nystop) 1 mariaa PRN BID PRN TP SKIN PROTECTION Last administered on 21:55; Start 12/04/16 at 06:45 Oxycodone HCl (Roxicodone) 5 mg TID PO Last administered on 12/19/16 20:11; Start 12/04/16 at 09:00 Polyethylene Glycol (miraLAX) 17 gm DAILY PO Last administered on 12/19/16 08: 31; Start 12/04/16 at 09:00 Capsaicin (Zostrix) 1 mariaa PRN Q8HRS PRN TP PAIN; Start 12/04/16 at 06:45 Loperamide HCl (Imodium) 2 mg PRN Q2HR PRN PO DIARRHEA; Start 12/04/16 at 06:45 Lorazepam (Ativan) 0.5 mg PRN Q2HR PRN TP ANXIETY / AGITATION; Start 12/04/16 at 06:45; Stop 12/04/16 at 13:56; Status DC Magnesium Hydroxide (Milk Of Magnesia) 2,400 mg PRN QHS PRN PO CONSTIPATION; Start 12/04/16 at 06:45 Morphine Sulfate (Roxanol Conc) 10 mg PRN Q4HRS PRN SL PAIN Last administered on 12/10/16 06:02; Start 12/04/16 at 06:45 Ondansetron HCl (Zofran Odt) 4 mg PRN Q4HRS PRN PO NAUSEA; Start 12/04/16 at 06 :45 Oxycodone HCl (Roxicodone) 5 mg PRN TID PRN PO PAIN; Start 12/04/16 at 06:45 Lorazepam (Ativan) 0.5 mg PRN Q2HR PRN TP ANXIETY / AGITATION Last administered on 12/19/16 20:56; Start 12/05/16 at 14:00 Prenat Multivit/ [place]/Iron/Folic Ac (Multivitamin ) 1 tab DAILYBFRSUP PO Last administered on 12/19/16 16:35; Start 12/04/16 at 17:00 Escitalopram Oxalate (Lexapro) 5 mg DAILY PO Last administered on 12/07/16 08: 32; Start 12/05/16 at 09:00; Stop 12/07/16 at 15:30; Status DC Vitamin D (Vitamin D3) 1,000 unit BIDACLD PO Last administered on 12/19/16 16: 35; Start 12/05/16 at 11:30 Cyanocobalamin (Vitamin B-12) 1,000 mcg DAILYBFRLUN PO Last administered on 12/19 11:49; Start 12/05/16 at 11:30 Escitalopram Oxalate (Lexapro) 10 mg DAILY PO Last administered on 12/19/16 08: 30; Start 12/08/16 at 09:00 Trazodone HCl (Desyrel) 50 mg PRN 1X PRN PO INSOMNIA Last administered on 23:07; Start 12/08/16 at 18:30 Divalproex Sodium (Depakote Sprinkles) 125 mg BID92 PO Last administered on 12/17 08:10; Start 12/09/16 at 09:00; Stop 12/17/16 at 10:48; Status DC Bisacodyl (Dulcolax Supp) 10 mg Q4DAYS PRN RC CONSTIPATION; Start 12/12/16 at 07:15 Divalproex Sodium (Depakote Sprinkles) 125 mg TID PO Last administered on 20:09; Start 12/17/16 at 14:00 Nystatin (Mycostatin) 1 mariaa PRN BID PRN TP RASH; Start 12/20/16 at 09:00 Active Scripts Active Reported Oxycodone Hcl 5 Mg Capsule 5 Mg PO PRN TID PRN Anti-Diarrhea (Loperamide Hcl) 2 Mg Tablet 2 Mg PO PRN Q2HR PRN Gnp Enema Ready To Use (Na Phos,M-B/Na Phos,Di-Ba) 133 Ml Enema 133 Ml RC PRN DAILY PRN Nystatin 15 Gm Cream..g. 1 Mariaa TP BID Trazodone Hcl 50 Mg Tablet 50 Mg PO QHS Miralax (Polyethylene Glycol 3350) 119 Gm Powder 17 Gm PO DAILY Oxycodone Hcl 5 Mg Tablet 5 Mg PO TID Zyprexa Zydis (Olanzapine) 5 Mg Tab.rapdis 2.5 Mg PO DAILY Nuedexta 20-10 Mg Capsule (Dextromethorphan Hbr/Quinidine) 1 Each Capsule 1 Cap PO BID Citalopram Hbr (Citalopram Hydrobromide) 10 Mg Tablet 15 Mg PO DAILY Wellbutrin Xl (Bupropion Hcl) 150 Mg Tab.er.24h 150 Mg PO DAILY Lorazepam 2 Mg/1 Ml Disp.syrin 0.5 Mg TP PRN Q2HR PRN Morphine Sulfate 20 Mg/1 Ml Syringe 10 Mg SL PRN Q4HRS PRN Dulcolax (Bisacodyl) 10 Mg Supp.rect 10 Mg RC Q4DAYS PRN Nystatin 15 Gm Powder 1 Mariaa TP PRN BID PRN Capsaicin 42.5 Gm Cream..g. 1 Mariaa TP PRN Q8HRS PRN Analgesic [place] (Methyl Salicylate/Menthol) 29 Gm Oint...g. 1 Mariaa TP PRN QID PRN Mirtazapine 15 Mg Tablet 15 Mg PO HS Losartan Potassium 50 Mg Tablet 50 Mg PO DAILY Docusate Sodium 100 Mg Capsule 200 Mg PO HS Milk Of Magnesia (Magnesium Hydroxide) 2,400 Mg/10 Ml Oral.susp 2,400 Mg PO PRN QHS PRN Zofran (Ondansetron Hcl) 4 Mg Tablet 4 Mg PO PRN Q4HRS PRN Diagnosis: Problems: (1) Dementia (2) Major depression (3) Suicidal ideation (4) Anxiety state (5) Essential hypertension (6) Dementia with behavioral problem (7) Anxiety disorder (8) Dementia in Alzheimer's disease with delusions (9) Dementia in Alzheimer's disease with depression (10) Dementia, vascular, with delusions (11) Dementia, vascular, with depression (12) Impulse control disorder KISHORE JI MD Dec 19, 2016 22:02
--- NOTE | 2016-12-20 01:45 | PN ---
DATE: 12/19/2016 PSYCHIATRIC PROGRESS NOTE SUBJECTIVE: The patient was seen on rounds the afternoon of 12/19/2016. Discussed with nursing staff, reviewed the chart. I met with the patient's daughter in the afternoon and discussed the patient's progress, discharge plans. There are no hallucinations noted. She remains confused, vision is poor. Ambulation impaired, but overall better, more talkative and interactive, labs due in the morning. Ambulation impaired in a wheelchair. No CV, , GI system symptoms on review. Reliability poor. MENTAL STATUS EXAM: Oriented to herself. Insight, judgment, recent and remote memory, attention, concentration, fund of knowledge poor, consistent with her diagnosis mentioned in my initial note. PLAN: Continue current psychotropics. Adjust as clinically indicated. MAN Valentin JI MD DR: JAILENE/amanda JOB#: [id number] / [id number]
--- NOTE | 2016-12-20 01:48 | PN ---
DATE: 12/18/2016 This is a late entry 12/18/2016, covers the elements not covered in my initial note. SUBJECTIVE: The patient has had a better day, remains confused. Vision is poor. Ambulation impaired. REVIEW OF SYSTEMS: No CV, , pulmonary, eye system symptoms on review. Reliability poor. At times, previous evening, she was hallucinating, yelling when no one was there. MENTAL STATUS EXAM: Oriented to herself. Insight, judgment, recent and remote memory, attention, concentration, fund of knowledge poor, consistent with her diagnosis. LABORATORY DATA: Reviewed. Valproic acid level due on 12/20/2016. PLAN: Continue current psychotropics. Adjust further as clinically indicated. MAN Valentin JI MD DR: JAILENE/amanda JOB#: [id number] / [id number]
[2016-12-20 06:19] VITALS: BP 154/71
[2016-12-20] MEDS: DEXTROMETHORPHAN HBR/QUINIDINE 1 CAPSULE. PO SCH ×2 (07:21→19:36)
[2016-12-20] MEDS: LOSARTAN 50 MG TABLET. PO SCH (07:21)
[2016-12-20] MEDS: DIVALPROEX 125 MG CAP.SPRINK PO SCH ×3 (07:21→19:36)
[2016-12-20] MEDS: ESCITALOPRAM 10 MG TABLET. PO SCH (07:22)
[2016-12-20] MEDS: POLYETHYLENE GLYCOL 3350 17 GM PACKET. PO SCH (07:22)
[2016-12-20] MEDS: buPROPion XL 150 MG TAB.ER.24H PO SCH (07:22)
[2016-12-20] MEDS: oxyCODONE IR 5 MG TABLET PO SCH ×3 (07:23→19:35)
[2016-12-20 07:32] LABS: BASO % 1 % (0-3); EOS # 0.4 x10^3/uL (0.0-0.7); EOS % 6 % (0-3); HEMATOCRIT 40.4 % (36.0-47.0); HEMOGLOBIN 13.6 g/dL (12.0-15.5); LYMPH # 2.4 x10^3/uL (1.0-4.8); LYMPH % 38 % (24-48); MEAN CORPUSCULAR HEMOGLOBIN 31 pg (25-35); MEAN CORPUSCULAR HGB CONC 34 g/dL (31-37); MEAN CORPUSCULAR VOLUME 91 fL (79-100); MONO # 0.4 x10^3/uL (0.0-1.1); MONO % 7 % (0-9); NEUT % 48 % (31-73); PLATELET COUNT 256 x10^3/uL (140-400); RED BLOOD COUNT 4.46 x10^6/uL (3.50-5.40); RED CELL DISTRIBUTION WIDTH 13.5 % (11.5-14.5); WHITE BLOOD COUNT 6.3 x10^3/uL (4.0-11.0)
[2016-12-20 07:50] LABS: ALBUMIN 3.1 g/dL (3.4-5.0); ALK PHOS 100 U/L (46-116); ALT (SGPT) 19 U/L (14-59); ANION GAP 6 (6-14); AST (SGOT) 14 U/L (15-37); BLOOD UREA NITROGEN 26 mg/dL (7-20); BUN/CREATININE RATIO 24 (6-20); CALCIUM 8.7 mg/dL (8.5-10.1); CARBON DIOXIDE 32 mmol/L (21-32); CHLORIDE 110 mmol/L (98-107); CREATININE 1.1 mg/dL (0.6-1.0); GFR 46.9; GLUCOSE 96 mg/dL (70-99); POTASSIUM 4.6 mmol/L (3.5-5.1); SODIUM 148 mmol/L (136-145); TOTAL BILIRUBIN 0.4 mg/dL (0.2-1.0); TOTAL PROTEIN 6.3 g/dL (6.4-8.2)
[2016-12-20 07:58] LABS: VAL ACID 21 mcg/mL (50-100)
[2016-12-20] MEDS ORDERED: NYSTATIN 100,000 UNIT/GM TOPICAL CREAM 15GM TUBE. TP PRN (09:00)
[2016-12-20] MEDS: CYANOCOBALAMIN (VITAMIN B-12) 1,000 MCG TABLET. PO SCH (11:49)
[2016-12-20] MEDS: CHOLECALCIFEROL (VITAMIN D3) 1,000 UNIT TABLET PO SCH ×2 (11:49→17:04)
[2016-12-20 16:21] VITALS: BP 108/73
[2016-12-20] MEDS: PRENATAL MULTIVITAMIN TABLET. PO SCH (17:04)
[2016-12-20] MEDS: traZODone 50 MG TABLET. PO SCH (19:35)
[2016-12-20] MEDS: MIRTAZAPINE 15 MG TABLET PO SCH (19:35)
[2016-12-20] MEDS: DOCUSATE SODIUM 100 MG CAPSULE PO SCH (19:36)
--- NOTE | 2016-12-20 19:59 | PDOC ---
Exam Maxx Demential Exam: Maxx Note: Please also refer to the separate dictated note~for this date of service dictated separately.~Patient seen individually. Discussed the patient with Nursing staff reviewed the chart.~Reviewed interim history and current functioning. Reviewed vital signs,~Labs/ Radiology~and current medications noted below. Continue current treatment with the changes noted in the dictated addendum note Assessment: Vital Signs: Vital Signs Date Time Temp Pulse Resp B/P (MAP) Pulse Ox O2 Delivery O2 Flow Rate FiO2 12/20/16 19:35 20 Room Air 12/20/16 16:21 97.5 73 108/73 (85) 97.0 12/20/16 06:19 94 I&O Intake and Output 12/20/16 07:00 Intake Total 480 ml Balance 480 ml Intake Oral 480 ml # Voids 1 Labs: Laboratory Tests Test 12/20/16 07:17 White Blood Count 6.3 x10^3/uL (4.0-11.0) Red Blood Count 4.46 x10^6/uL (3.50-5.40) Hemoglobin 13.6 g/dL (12.0-15.5) Hematocrit 40.4 % (36.0-47.0) Mean Corpuscular Volume 91 fL (79-100) Mean Corpuscular Hemoglobin 31 pg (25-35) Mean Corpuscular Hemoglobin Concent 34 g/dL (31-37) Red Cell Distribution Width 13.5 % (11.5-14.5) Platelet Count 256 x10^3/uL (140-400) Neutrophils (%) (Auto) 48 % (31-73) Lymphocytes (%) (Auto) 38 % (24-48) Monocytes (%) (Auto) 7 % (0-9) Eosinophils (%) (Auto) 6 % (0-3) H Basophils (%) (Auto) 1 % (0-3) Neutrophils # (Auto) 3.0 x10^3uL (1.8-7.7) Lymphocytes # (Auto) 2.4 x10^3/uL (1.0-4.8) Monocytes # (Auto) 0.4 x10^3/uL (0.0-1.1) Eosinophils # (Auto) 0.4 x10^3/uL (0.0-0.7) Basophils # (Auto) 0.0 x10^3/uL (0.0-0.2) Sodium Level 148 mmol/L (136-145) H Potassium Level 4.6 mmol/L (3.5-5.1) Chloride Level 110 mmol/L (98-107) H Carbon Dioxide Level 32 mmol/L (21-32) Anion Gap 6 (6-14) Blood Urea Nitrogen 26 mg/dL (7-20) H Creatinine 1.1 mg/dL (0.6-1.0) H Estimated GFR (Cockcroft-Gault) 46.9 BUN/Creatinine Ratio 24 (6-20) H Glucose Level 96 mg/dL (70-99) Calcium Level 8.7 mg/dL (8.5-10.1) Total Bilirubin 0.4 mg/dL (0.2-1.0) Aspartate Amino Transferase (AST) 14 U/L (15-37) L Alanine Aminotransferase (ALT) 19 U/L (14-59) Alkaline Phosphatase 100 U/L (46-116) Total Protein 6.3 g/dL (6.4-8.2) L Albumin 3.1 g/dL (3.4-5.0) L Albumin/Globulin Ratio 1.0 (1.0-1.7) Valproic Acid Level 21 mcg/mL (50-100) L Valproic Acid Last Dose Date 12/19/2016 Valproic Acid Last Dose Time 2100 Current Medications: Meds: Current Medications Haloperidol Lactate (Haldol) 5 mg 1X ONCE IM Last administered on 12/03/16 18 :56; Start 12/03/16 at 18:50; Stop 12/03/16 at 18:51; Status DC Acetaminophen (Tylenol) 650 mg PRN Q6HRS PRN PO PAIN / TEMP Last administered on 12/15/16 05:11; Start 12/03/16 at 20:45 Bupropion HCl (Wellbutrin Xl) 150 mg DAILY PO Last administered on 12/20/16 07: 22; Start 12/04/16 at 09:00 Citalopram Hydrobromide (CeleXA) 15 mg DAILY PO Last administered on 12/04/16 09:32; Start 12/04/16 at 09:00; Stop 12/04/16 at 17:51; Status DC Mirtazapine (Remeron) 15 mg HS PO Last administered on 12/20/16 19:35; Start at 22:45 Olanzapine (Zyprexa Zydis) 2.5 mg DAILY PO Last administered on 12/20/16 07:21 ; Start 12/04/16 at 09:00 Trazodone HCl (Desyrel) 50 mg QHS PO Last administered on 12/20/16 19:35; Start 12/04/16 at 22:45 Olanzapine (Zyprexa Zydis) 5 mg PRN Q2HR PRN PO Psych Last administered on 16:35; Start 12/03/16 at 22:00 Bisacodyl (Dulcolax Supp) 10 mg Q4DAYS RC Last administered on 12/11/16 08:38 ; Start 12/04/16 at 09:00; Stop 12/12/16 at 07:06; Status DC Docusate Sodium (Colace) 200 mg HS PO Last administered on 12/20/16 19:36; Start 12/04/16 at 21:00 Losartan Potassium (Cozaar) 50 mg DAILY PO Last administered on 12/20/16 07:21 ; Start 12/04/16 at 09:00 Multi-Ingredient Ointment (Analgesic [place]) 1 mariaa PRN QID PRN TP MUSCLE PAIN; Start 12/04/16 at 06:45 Nystatin (Mycostatin) 1 mariaa BID TP Last administered on 12/19/16 08:33; Start 12/04/16 at 09:00; Stop 12/19/16 at 10:02; Status DC Nystatin (Nystop) 1 mariaa PRN BID PRN TP SKIN PROTECTION Last administered on 21:55; Start 12/04/16 at 06:45 Oxycodone HCl (Roxicodone) 5 mg TID PO Last administered on 12/20/16 19:35; Start 12/04/16 at 09:00 Polyethylene Glycol (miraLAX) 17 gm DAILY PO Last administered on 12/20/16 07: 22; Start 12/04/16 at 09:00 Capsaicin (Zostrix) 1 mariaa PRN Q8HRS PRN TP PAIN; Start 12/04/16 at 06:45 Loperamide HCl (Imodium) 2 mg PRN Q2HR PRN PO DIARRHEA; Start 12/04/16 at 06:45 Lorazepam (Ativan) 0.5 mg PRN Q2HR PRN TP ANXIETY / AGITATION; Start 12/04/16 at 06:45; Stop 12/04/16 at 13:56; Status DC Magnesium Hydroxide (Milk Of Magnesia) 2,400 mg PRN QHS PRN PO CONSTIPATION; Start 12/04/16 at 06:45 Morphine Sulfate (Roxanol Conc) 10 mg PRN Q4HRS PRN SL PAIN Last administered on 12/10/16 06:02; Start 12/04/16 at 06:45 Ondansetron HCl (Zofran Odt) 4 mg PRN Q4HRS PRN PO NAUSEA; Start 12/04/16 at 06 :45 Oxycodone HCl (Roxicodone) 5 mg PRN TID PRN PO PAIN; Start 12/04/16 at 06:45 Lorazepam (Ativan) 0.5 mg PRN Q2HR PRN TP ANXIETY / AGITATION Last administered on 12/19/16 20:56; Start 12/05/16 at 14:00 Prenat Multivit/ Page/Iron/Folic Ac (Multivitamin ) 1 tab DAILYBFRSUP PO Last administered on 12/20/16 17:04; Start 12/04/16 at 17:00 Escitalopram Oxalate (Lexapro) 5 mg DAILY PO Last administered on 12/07/16 08: 32; Start 12/05/16 at 09:00; Stop 12/07/16 at 15:30; Status DC Vitamin D (Vitamin D3) 1,000 unit BIDACLD PO Last administered on 12/20/16 17: 04; Start 12/05/16 at 11:30 Cyanocobalamin (Vitamin B-12) 1,000 mcg DAILYBFRLUN PO Last administered on 12/20 11:49; Start 12/05/16 at 11:30 Escitalopram Oxalate (Lexapro) 10 mg DAILY PO Last administered on 12/20/16 07: 22; Start 12/08/16 at 09:00 Trazodone HCl (Desyrel) 50 mg PRN 1X PRN PO INSOMNIA Last administered on 23:07; Start 12/08/16 at 18:30 Divalproex Sodium (Depakote Sprinkles) 125 mg BID92 PO Last administered on 12/17 08:10; Start 12/09/16 at 09:00; Stop 12/17/16 at 10:48; Status DC Bisacodyl (Dulcolax Supp) 10 mg Q4DAYS PRN RC CONSTIPATION; Start 12/12/16 at 07:15 Divalproex Sodium (Depakote Sprinkles) 125 mg TID PO Last administered on 19:36; Start 12/17/16 at 14:00 Nystatin (Mycostatin) 1 mariaa PRN BID PRN TP RASH; Start 12/20/16 at 09:00 Active Scripts Active Reported Oxycodone Hcl 5 Mg Capsule 5 Mg PO PRN TID PRN Anti-Diarrhea (Loperamide Hcl) 2 Mg Tablet 2 Mg PO PRN Q2HR PRN Gnp Enema Ready To Use (Na Phos,M-B/Na Phos,Di-Ba) 133 Ml Enema 133 Ml RC PRN DAILY PRN Nystatin 15 Gm Cream..g. 1 Mariaa TP BID Trazodone Hcl 50 Mg Tablet 50 Mg PO QHS Miralax (Polyethylene Glycol 3350) 119 Gm Powder 17 Gm PO DAILY Oxycodone Hcl 5 Mg Tablet 5 Mg PO TID Zyprexa Zydis (Olanzapine) 5 Mg Tab.rapdis 2.5 Mg PO DAILY Nuedexta 20-10 Mg Capsule (Dextromethorphan Hbr/Quinidine) 1 Each Capsule 1 Cap PO BID Citalopram Hbr (Citalopram Hydrobromide) 10 Mg Tablet 15 Mg PO DAILY Wellbutrin Xl (Bupropion Hcl) 150 Mg Tab.er.24h 150 Mg PO DAILY Lorazepam 2 Mg/1 Ml Disp.syrin 0.5 Mg TP PRN Q2HR PRN Morphine Sulfate 20 Mg/1 Ml Syringe 10 Mg SL PRN Q4HRS PRN Dulcolax (Bisacodyl) 10 Mg Supp.rect 10 Mg RC Q4DAYS PRN Nystatin 15 Gm Powder 1 Mariaa TP PRN BID PRN Capsaicin 42.5 Gm Cream..g. 1 Mariaa TP PRN Q8HRS PRN Analgesic [place] (Methyl Salicylate/Menthol) 29 Gm Oint...g. 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
[2016-12-21 06:07] VITALS: BP 123/75
[2016-12-21] MEDS: CYANOCOBALAMIN (VITAMIN B-12) 1,000 MCG TABLET. PO SCH (08:20)
[2016-12-21] MEDS: ESCITALOPRAM 10 MG TABLET. PO SCH (08:20)
[2016-12-21] MEDS: buPROPion XL 150 MG TAB.ER.24H PO SCH (08:20)
[2016-12-21] MEDS: DIVALPROEX 125 MG CAP.SPRINK PO SCH ×3 (08:21→19:22)
[2016-12-21] MEDS: LOSARTAN 50 MG TABLET. PO SCH (08:21)
[2016-12-21] MEDS: oxyCODONE IR 5 MG TABLET PO SCH ×3 (08:22→19:23)
[2016-12-21] MEDS: POLYETHYLENE GLYCOL 3350 17 GM PACKET. PO SCH (08:22)
[2016-12-21] MEDS: DEXTROMETHORPHAN HBR/QUINIDINE 1 CAPSULE. PO SCH ×2 (08:28→19:24)
[2016-12-21] MEDS: CHOLECALCIFEROL (VITAMIN D3) 1,000 UNIT TABLET PO SCH ×2 (12:25→16:24)
[2016-12-21] MEDS ORDERED: ACET325T9 PO (15:21)
[2016-12-21] MEDS ORDERED: CHOL10003 PO (15:33)
[2016-12-21] MEDS ORDERED: CYAN10005 PO (15:35)
[2016-12-21] MEDS ORDERED: DIVA125C PO (15:36)
[2016-12-21] MEDS ORDERED: OLAN5TAB7 PO (15:38)
[2016-12-21] MEDS ORDERED: PNV1TABL25 PO (15:39)
[2016-12-21] MEDS ORDERED: TRAZ50TA15 PO (15:40)
[2016-12-21] MEDS: PRENATAL MULTIVITAMIN TABLET. PO SCH (16:24)
[2016-12-21 16:49] VITALS: BP 162/79
[2016-12-21] MEDS: DOCUSATE SODIUM 100 MG CAPSULE PO SCH (19:22)
[2016-12-21] MEDS: MIRTAZAPINE 15 MG TABLET PO SCH (19:22)
[2016-12-21] MEDS: traZODone 50 MG TABLET. PO SCH (19:22)
--- NOTE | 2016-12-21 21:05 | PDOC ---
Exam Maxx Demential Exam: Maxx Note: Please also refer to the separate dictated note~for this date of service dictated separately.~Patient seen individually. Discussed the patient with Nursing staff reviewed the chart.~Reviewed interim history and current functioning. Reviewed vital signs,~Labs/ Radiology~and current medications noted below. Continue current treatment with the changes noted in the dictated addendum note Assessment: Vital Signs: Vital Signs Date Time Temp Pulse Resp B/P (MAP) Pulse Ox O2 Delivery O2 Flow Rate FiO2 12/21/16 19:23 20 12/21/16 16:49 97.4 69 162/79 (106) 98 12/21/16 14:57 Room Air 12/20/16 16:21 97.0 I&O Intake and Output 12/21/16 07:00 Intake Total 840 ml Balance 840 ml Intake Oral 840 ml # Voids 1 # Bowel Movements 1 Current Medications: Meds: Current Medications Haloperidol Lactate (Haldol) 5 mg 1X ONCE IM Last administered on 12/03/16 18 :56; Start 12/03/16 at 18:50; Stop 12/03/16 at 18:51; Status DC Acetaminophen (Tylenol) 650 mg PRN Q6HRS PRN PO PAIN / TEMP Last administered on 12/15/16 05:11; Start 12/03/16 at 20:45 Bupropion HCl (Wellbutrin Xl) 150 mg DAILY PO Last administered on 12/21/16 08: 20; Start 12/04/16 at 09:00 Citalopram Hydrobromide (CeleXA) 15 mg DAILY PO Last administered on 12/04/16 09:32; Start 12/04/16 at 09:00; Stop 12/04/16 at 17:51; Status DC Mirtazapine (Remeron) 15 mg HS PO Last administered on 12/21/16 19:22; Start at 22:45 Olanzapine (Zyprexa Zydis) 2.5 mg DAILY PO Last administered on 12/21/16 08:21 ; Start 12/04/16 at 09:00 Trazodone HCl (Desyrel) 50 mg QHS PO Last administered on 12/21/16 19:22; Start 12/04/16 at 22:45 Olanzapine (Zyprexa Zydis) 5 mg PRN Q2HR PRN PO Psych Last administered on 16:35; Start 12/03/16 at 22:00 Bisacodyl (Dulcolax Supp) 10 mg Q4DAYS RC Last administered on 12/11/16 08:38 ; Start 12/04/16 at 09:00; Stop 12/12/16 at 07:06; Status DC Docusate Sodium (Colace) 200 mg HS PO Last administered on 12/21/16 19:22; Start 12/04/16 at 21:00 Losartan Potassium (Cozaar) 50 mg DAILY PO Last administered on 12/21/16 08:21 ; Start 12/04/16 at 09:00 Multi-Ingredient Ointment (Analgesic Trail) 1 mariaa PRN QID PRN TP MUSCLE PAIN; Start 12/04/16 at 06:45 Nystatin (Mycostatin) 1 mariaa BID TP Last administered on 12/19/16 08:33; Start 12/04/16 at 09:00; Stop 12/19/16 at 10:02; Status DC Nystatin (Nystop) 1 mariaa PRN BID PRN TP SKIN PROTECTION Last administered on 21:55; Start 12/04/16 at 06:45 Oxycodone HCl (Roxicodone) 5 mg TID PO Last administered on 12/21/16 19:23; Start 12/04/16 at 09:00 Polyethylene Glycol (miraLAX) 17 gm DAILY PO Last administered on 12/21/16 08: 22; Start 12/04/16 at 09:00 Capsaicin (Zostrix) 1 mariaa PRN Q8HRS PRN TP PAIN; Start 12/04/16 at 06:45 Loperamide HCl (Imodium) 2 mg PRN Q2HR PRN PO DIARRHEA; Start 12/04/16 at 06:45 Lorazepam (Ativan) 0.5 mg PRN Q2HR PRN TP ANXIETY / AGITATION; Start 12/04/16 at 06:45; Stop 12/04/16 at 13:56; Status DC Magnesium Hydroxide (Milk Of Magnesia) 2,400 mg PRN QHS PRN PO CONSTIPATION; Start 12/04/16 at 06:45 Morphine Sulfate (Roxanol Conc) 10 mg PRN Q4HRS PRN SL PAIN Last administered on 12/10/16 06:02; Start 12/04/16 at 06:45 Ondansetron HCl (Zofran Odt) 4 mg PRN Q4HRS PRN PO NAUSEA; Start 12/04/16 at 06 :45 Oxycodone HCl (Roxicodone) 5 mg PRN TID PRN PO PAIN; Start 12/04/16 at 06:45 Lorazepam (Ativan) 0.5 mg PRN Q2HR PRN TP ANXIETY / AGITATION Last administered on 12/19/16 20:56; Start 12/05/16 at 14:00 Prenat Multivit/ Donor Specialist/Iron/Folic Ac (Multivitamin ) 1 tab DAILYBFRSUP PO Last administered on 12/21/16 16:24; Start 12/04/16 at 17:00 Escitalopram Oxalate (Lexapro) 5 mg DAILY PO Last administered on 12/07/16 08: 32; Start 12/05/16 at 09:00; Stop 12/07/16 at 15:30; Status DC Vitamin D (Vitamin D3) 1,000 unit BIDACLD PO Last administered on 12/21/16 16: 24; Start 12/05/16 at 11:30 Cyanocobalamin (Vitamin B-12) 1,000 mcg DAILYBFRLUN PO Last administered on 12/21 08:20; Start 12/05/16 at 11:30 Escitalopram Oxalate (Lexapro) 10 mg DAILY PO Last administered on 12/21/16 08: 20; Start 12/08/16 at 09:00 Trazodone HCl (Desyrel) 50 mg PRN 1X PRN PO INSOMNIA Last administered on 23:07; Start 12/08/16 at 18:30 Divalproex Sodium (Depakote Sprinkles) 125 mg BID92 PO Last administered on 12/17 08:10; Start 12/09/16 at 09:00; Stop 12/17/16 at 10:48; Status DC Bisacodyl (Dulcolax Supp) 10 mg Q4DAYS PRN RC CONSTIPATION; Start 12/12/16 at 07:15 Divalproex Sodium (Depakote Sprinkles) 125 mg TID PO Last administered on 6/5/ 17at 19:22; Start 12/17/16 at 14:00 Nystatin (Mycostatin) 1 mariaa PRN BID PRN TP RASH; Start 12/20/16 at 09:00 Active Scripts Active Reported Trazodone Hcl 50 Mg Tablet 50 Mg PO PRN 1X PRN Tablet (Pnv Cmb#95/Ferrous Fumarate/Fa) 1 Each Tablet 1 Tab PO DAILY Olanzapine Odt (Olanzapine) 5 Mg Tab.rapdis 5 Mg PO PRN Q2HR PRN Depakote Sprinkle (Divalproex Sodium) 125 Mg Cap.sprink 125 Mg PO TID Vitamin B-12 (Cyanocobalamin (Vitamin B-12)) 1,000 Mcg Tablet 1 Tab PO DAILY Vitamin D3 (Cholecalciferol (Vitamin D3)) 1,000 Unit Tablet 1 Tab PO BIDACLD Tylenol (Acetaminophen) 325 Mg Tablet 2 Tab PO PRN Q6HRS PRN Oxycodone Hcl 5 Mg Capsule 5 Mg PO PRN TID PRN Anti-Diarrhea (Loperamide Hcl) 2 Mg Tablet 2 Mg PO PRN Q2HR PRN Gnp Enema Ready To Use (Na Phos,M-B/Na Phos,Di-Ba) 133 Ml Enema 133 Ml RC PRN DAILY PRN Nystatin 15 Gm Cream..g. 1 Mariaa TP BID Trazodone Hcl 50 Mg Tablet 50 Mg PO QHS Miralax (Polyethylene Glycol 3350) 119 Gm Powder 17 Gm PO DAILY Oxycodone Hcl 5 Mg Tablet 5 Mg PO TID Zyprexa Zydis (Olanzapine) 5 Mg Tab.rapdis 2.5 Mg PO DAILY Nuedexta 20-10 Mg Capsule (Dextromethorphan Hbr/Quinidine) 1 Each Capsule 1 Cap PO BID Citalopram Hbr (Citalopram Hydrobromide) 10 Mg Tablet 15 Mg PO DAILY Wellbutrin Xl (Bupropion Hcl) 150 Mg Tab.er.24h 150 Mg PO DAILY Lorazepam 2 Mg/1 Ml Disp.syrin 0.5 Mg TP PRN Q2HR PRN Morphine Sulfate 20 Mg/1 Ml Syringe 10 Mg SL PRN Q4HRS PRN Dulcolax (Bisacodyl) 10 Mg Supp.rect 10 Mg RC Q4DAYS PRN Nystatin 15 Gm Powder 1 Mariaa TP PRN BID PRN Capsaicin 42.5 Gm Cream..g. 1 Mariaa TP PRN Q8HRS PRN Analgesic Trail (Methyl Salicylate/Menthol) 29 Gm Oint...g. 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
[2016-12-21] MEDS ORDERED: ESCI10TA PO (22:27)
[2016-12-21] MEDS ORDERED: MAGN400O7 PO (22:28)
[2016-12-21] MEDS ORDERED: OXYC5TAB PO (22:32)
--- NOTE | 2016-12-22 04:53 | PN ---
DATE: 12/20/2016 PSYCHIATRIC PROGRESS NOTE This is a late entry 12/20/2016 covers the elements not covered in my initial note. SUBJECTIVE: Overall, the patient remains confused, but had a good day per nursing report. REVIEW OF SYSTEMS: Ambulation impaired. She is legally blind. No CV, , GI, pulmonary system symptoms on review. MENTAL STATUS EXAM: Oriented to herself. Insight, judgment, recent and remote memory, attention, concentration, fund of knowledge poor, consistent with her diagnosis mentioned in my initial note. PLAN: Continue current psychotropics reviewed, drug interactions, risk/benefit ratio favors no change for now. MAN Valentin JI MD DR: JAILENE/amanda JOB#: [id number] / [id number]
[2016-12-22 06:25] VITALS: BP 128/81
[2016-12-22] MEDS: buPROPion XL 150 MG TAB.ER.24H PO SCH (09:13)
[2016-12-22] MEDS: DIVALPROEX 125 MG CAP.SPRINK PO SCH ×3 (09:13→19:11)
[2016-12-22] MEDS: POLYETHYLENE GLYCOL 3350 17 GM PACKET. PO SCH (09:13)
[2016-12-22] MEDS: ESCITALOPRAM 10 MG TABLET. PO SCH (09:13)
[2016-12-22] MEDS: LOSARTAN 50 MG TABLET. PO SCH (09:13)
[2016-12-22] MEDS: oxyCODONE IR 5 MG TABLET PO SCH ×3 (09:14→19:13)
[2016-12-22] MEDS: DEXTROMETHORPHAN HBR/QUINIDINE 1 CAPSULE. PO SCH ×2 (09:17→19:12)
[2016-12-22] MEDS: CHOLECALCIFEROL (VITAMIN D3) 1,000 UNIT TABLET PO SCH ×2 (11:30→17:36)
[2016-12-22] MEDS: CYANOCOBALAMIN (VITAMIN B-12) 1,000 MCG TABLET. PO SCH (11:30)
[2016-12-22 16:23] VITALS: BP 99/54
[2016-12-22] MEDS: PRENATAL MULTIVITAMIN TABLET. PO SCH (17:17)
[2016-12-22] MEDS: DOCUSATE SODIUM 100 MG CAPSULE PO SCH (19:11)
[2016-12-22] MEDS: traZODone 50 MG TABLET. PO SCH (19:11)
[2016-12-22] MEDS: MIRTAZAPINE 15 MG TABLET PO SCH (19:12)
--- NOTE | 2016-12-22 20:26 | PDOC ---
Exam Maxx Demential Exam: Maxx Note: Please also refer to the separate dictated note~for this date of service dictated separately.~Patient seen individually. Discussed the patient with Nursing staff reviewed the chart.~Reviewed interim history and current functioning. Reviewed vital signs,~Labs/ Radiology~and current medications noted below. Continue current treatment with the changes noted in the dictated addendum note Assessment: Vital Signs: Vital Signs Date Time Temp Pulse Resp B/P (MAP) Pulse Ox O2 Delivery O2 Flow Rate FiO2 12/22/16 19:13 96 Room Air 12/22/16 16:23 98.1 83 16 99/54 (69) 12/20/16 16:21 97.0 I&O Intake and Output 12/22/16 07:00 Intake Total 600 ml Balance 600 ml Intake Oral 600 ml # Voids 1 Current Medications: Meds: Current Medications Haloperidol Lactate (Haldol) 5 mg 1X ONCE IM Last administered on 12/03/16 18 :56; Start 12/03/16 at 18:50; Stop 12/03/16 at 18:51; Status DC Acetaminophen (Tylenol) 650 mg PRN Q6HRS PRN PO PAIN / TEMP Last administered on 12/15/16 05:11; Start 12/03/16 at 20:45 Bupropion HCl (Wellbutrin Xl) 150 mg DAILY PO Last administered on 12/22/16 09: 13; Start 12/04/16 at 09:00 Citalopram Hydrobromide (CeleXA) 15 mg DAILY PO Last administered on 12/04/16 09:32; Start 12/04/16 at 09:00; Stop 12/04/16 at 17:51; Status DC Mirtazapine (Remeron) 15 mg HS PO Last administered on 12/22/16 19:12; Start at 22:45 Olanzapine (Zyprexa Zydis) 2.5 mg DAILY PO Last administered on 12/22/16 09:17 ; Start 12/04/16 at 09:00 Trazodone HCl (Desyrel) 50 mg QHS PO Last administered on 12/22/16 19:11; Start 12/04/16 at 22:45 Olanzapine (Zyprexa Zydis) 5 mg PRN Q2HR PRN PO Psych Last administered on 16:35; Start 12/03/16 at 22:00 Bisacodyl (Dulcolax Supp) 10 mg Q4DAYS RC Last administered on 12/11/16 08:38 ; Start 12/04/16 at 09:00; Stop 12/12/16 at 07:06; Status DC Docusate Sodium (Colace) 200 mg HS PO Last administered on 12/22/16 19:11; Start 12/04/16 at 21:00 Losartan Potassium (Cozaar) 50 mg DAILY PO Last administered on 12/22/16 09:13 ; Start 12/04/16 at 09:00 Multi-Ingredient Ointment (Analgesic [place]) 1 mariaa PRN QID PRN TP MUSCLE PAIN; Start 12/04/16 at 06:45 Nystatin (Mycostatin) 1 mariaa BID TP Last administered on 12/19/16 08:33; Start 12/04/16 at 09:00; Stop 12/19/16 at 10:02; Status DC Nystatin (Nystop) 1 mariaa PRN BID PRN TP SKIN PROTECTION Last administered on 21:55; Start 12/04/16 at 06:45 Oxycodone HCl (Roxicodone) 5 mg TID PO Last administered on 12/22/16 19:13; Start 12/04/16 at 09:00 Polyethylene Glycol (miraLAX) 17 gm DAILY PO Last administered on 12/22/16 09: 13; Start 12/04/16 at 09:00 Capsaicin (Zostrix) 1 mariaa PRN Q8HRS PRN TP PAIN; Start 12/04/16 at 06:45 Loperamide HCl (Imodium) 2 mg PRN Q2HR PRN PO DIARRHEA; Start 12/04/16 at 06:45 Lorazepam (Ativan) 0.5 mg PRN Q2HR PRN TP ANXIETY / AGITATION; Start 12/04/16 at 06:45; Stop 12/04/16 at 13:56; Status DC Magnesium Hydroxide (Milk Of Magnesia) 2,400 mg PRN QHS PRN PO CONSTIPATION; Start 12/04/16 at 06:45 Morphine Sulfate (Roxanol Conc) 10 mg PRN Q4HRS PRN SL PAIN Last administered on 12/10/16 06:02; Start 12/04/16 at 06:45 Ondansetron HCl (Zofran Odt) 4 mg PRN Q4HRS PRN PO NAUSEA; Start 12/04/16 at 06 :45 Oxycodone HCl (Roxicodone) 5 mg PRN TID PRN PO PAIN; Start 12/04/16 at 06:45 Lorazepam (Ativan) 0.5 mg PRN Q2HR PRN TP ANXIETY / AGITATION Last administered on 12/19/16 20:56; Start 12/05/16 at 14:00 Prenat Multivit/ Guzzler Builder/Iron/Folic Ac (Multivitamin ) 1 tab DAILYBFRSUP PO Last administered on 12/22/16 17:17; Start 12/04/16 at 17:00 Escitalopram Oxalate (Lexapro) 5 mg DAILY PO Last administered on 12/07/16 08: 32; Start 12/05/16 at 09:00; Stop 12/07/16 at 15:30; Status DC Vitamin D (Vitamin D3) 1,000 unit BIDACLD PO Last administered on 12/22/16 17: 36; Start 12/05/16 at 11:30 Cyanocobalamin (Vitamin B-12) 1,000 mcg DAILYBFRLUN PO Last administered on 12/22 11:30; Start 12/05/16 at 11:30 Escitalopram Oxalate (Lexapro) 10 mg DAILY PO Last administered on 12/22/16 09: 13; Start 12/08/16 at 09:00 Trazodone HCl (Desyrel) 50 mg PRN 1X PRN PO INSOMNIA Last administered on 23:07; Start 12/08/16 at 18:30 Divalproex Sodium (Depakote Sprinkles) 125 mg BID92 PO Last administered on 12/17 08:10; Start 12/09/16 at 09:00; Stop 12/17/16 at 10:48; Status DC Bisacodyl (Dulcolax Supp) 10 mg Q4DAYS PRN RC CONSTIPATION; Start 12/12/16 at 07:15 Divalproex Sodium (Depakote Sprinkles) 125 mg TID PO Last administered on 19:11; Start 6/1/17 at 14:00; Stop 12/22/16 at 19:25; Status DC Nystatin (Mycostatin) 1 mariaa PRN BID PRN TP RASH; Start 12/20/16 at 09:00 Divalproex Sodium (Depakote Sprinkles) 125 mg 0900,1300,1700 PO ; Start 12/23/16 at 09:00 Active Scripts Active Reported Oxycodone Hcl 5 Mg Tablet 5 Mg PO PRN TID PRN Milk Of Magnesia (Magnesium Hydroxide) 400 Mg/5 Ml Oral.susp 2,400 Mg PO PRN QHS PRN Escitalopram Oxalate 10 Mg Tablet 10 Mg PO DAILY Trazodone Hcl 50 Mg Tablet 50 Mg PO PRN 1X PRN Tablet (Pnv Cmb#95/Ferrous Fumarate/Fa) 1 Each Tablet 1 Tab PO DAILY Olanzapine Odt (Olanzapine) 5 Mg Tab.rapdis 5 Mg PO PRN Q2HR PRN Depakote Sprinkle (Divalproex Sodium) 125 Mg Cap.sprink 125 Mg PO TID Vitamin B-12 (Cyanocobalamin (Vitamin B-12)) 1,000 Mcg Tablet 1 Tab PO DAILY Vitamin D3 (Cholecalciferol (Vitamin D3)) 1,000 Unit Tablet 1 Tab PO BIDACLD Tylenol (Acetaminophen) 325 Mg Tablet 2 Tab PO PRN Q6HRS PRN Anti-Diarrhea (Loperamide Hcl) 2 Mg Tablet 2 Mg PO PRN Q2HR PRN Gnp Enema Ready To Use (Na Phos,M-B/Na Phos,Di-Ba) 133 Ml Enema 133 Ml RC PRN DAILY PRN Nystatin 15 Gm Cream..g. 1 Mariaa TP BID Trazodone Hcl 50 Mg Tablet 50 Mg PO QHS Miralax (Polyethylene Glycol 3350) 119 Gm Powder 17 Gm PO DAILY Oxycodone Hcl 5 Mg Tablet 5 Mg PO TID Zyprexa Zydis (Olanzapine) 5 Mg Tab.rapdis 2.5 Mg PO DAILY Nuedexta 20-10 Mg Capsule (Dextromethorphan Hbr/Quinidine) 1 Each Capsule 1 Cap PO BID Citalopram Hbr (Citalopram Hydrobromide) 10 Mg Tablet 15 Mg PO DAILY Wellbutrin Xl (Bupropion Hcl) 150 Mg Tab.er.24h 150 Mg PO DAILY Lorazepam 2 Mg/1 Ml Disp.syrin 0.5 Mg TP PRN Q2HR PRN Morphine Sulfate 20 Mg/1 Ml Syringe 10 Mg SL PRN Q4HRS PRN Dulcolax (Bisacodyl) 10 Mg Supp.rect 10 Mg RC Q4DAYS PRN Nystatin 15 Gm Powder 1 Mariaa TP PRN BID PRN Capsaicin 42.5 Gm Cream..g. 1 Mariaa TP PRN Q8HRS PRN Analgesic [place] (Methyl Salicylate/Menthol) 29 Gm Oint...g. 1 Mariaa TP PRN QID PRN Mirtazapine 15 Mg Tablet 15 Mg PO HS Losartan Potassium 50 Mg Tablet 50 Mg PO DAILY Docusate Sodium 100 Mg Capsule 200 Mg PO HS Zofran (Ondansetron Hcl) 4 Mg Tablet 4 Mg PO PRN Q4HRS PRN Diagnosis: Problems: (1) Dementia (2) Major depression (3) Prolonged grief reaction (4) Dementia with behavioral problem (5) Anxiety disorder (6) Dementia in Alzheimer's disease with delusions (7) Dementia in Alzheimer's disease with depression (8) Dementia, vascular, with delusions (9) Dementia, vascular, with depression (10) Impulse control disorder KISHORE JI MD Dec 22, 2016 20:26
--- NOTE | 2016-12-23 03:44 | PN ---
DATE: 12/21/2016 This is a late entry for 12/21/2016 and covers the elements not covered in my initial note. SUBJECTIVE: The patient remains confused, withdrawn; otherwise, pleasant, not aggressive, not grabbing at staff. REVIEW OF SYSTEMS: Legally blind, impaired ambulation. No CV, , pulmonary system symptoms on review. Reliability poor. MENTAL STATUS EXAM: Oriented to herself. Insight, judgment, recent and remote memory, attention, concentration, fund of knowledge poor, consistent with her diagnosis mentioned in my initial note. PLAN: Continue current psychotropics mentioned in my initial note. Possible transition to custodial on 12/22/2016. MAN Valentin JI MD DR: JAILENE/amanda JOB#: [id number] / [id number]
[2016-12-23 06:14] VITALS: BP 139/78
[2016-12-23] MEDS ORDERED: DIVALPROEX 125 MG CAP.SPRINK PO SCH (09:00)
[2016-12-23 09:07] VITALS: BP 139/78
[2016-12-23] MEDS: LOSARTAN 50 MG TABLET. PO SCH (09:07)
[2016-12-23] MEDS: DEXTROMETHORPHAN HBR/QUINIDINE 1 CAPSULE. PO SCH (09:07)
[2016-12-23] MEDS: buPROPion XL 150 MG TAB.ER.24H PO SCH (09:07)
[2016-12-23] MEDS: POLYETHYLENE GLYCOL 3350 17 GM PACKET. PO SCH (09:07)
[2016-12-23] MEDS: ESCITALOPRAM 10 MG TABLET. PO SCH (09:07)
[2016-12-23] MEDS: oxyCODONE IR 5 MG TABLET PO SCH (09:10)
[2016-12-23] MEDS: CHOLECALCIFEROL (VITAMIN D3) 1,000 UNIT TABLET PO SCH (11:48)
[2016-12-23] MEDS: CYANOCOBALAMIN (VITAMIN B-12) 1,000 MCG TABLET. PO SCH (11:48)
--- NOTE | 2016-12-24 03:53 | PN ---
DATE: 12/22/2016 This late entry 12/22/2016 covers elements not covered in my initial note. SUBJECTIVE: The patient has done better during the day, but in the evening, she was a little more irritable, confused. REVIEW OF SYSTEMS: Poor vision, impaired ambulation. No CV, , GI, or pulmonary system symptoms on review. Reliability poor. MENTAL STATUS EXAM: Oriented to herself. Insight, judgment, recent and remote memory, attention, concentration, fund of knowledge poor, consistent with her diagnosis mentioned in my initial note. PLAN: Valproic acid level 21 despite being subtherapeutic, seems adequate for her, but we will change the timing of her Depakote Sprinkles from 08/12/2016 t.i.d. to 125 at 9:00 a.m., 1:00 p.m., and 5:00 p.m. Maintain the rest of the psychotropics as mentioned in my initial note. Possible transition to snf 12/23/2016. KISHORE JI MD DR: JAILENE/amanda JOB#: [id number] / [id number]
--- NOTE | 2016-12-25 22:17 | DS ---
DATE OF DISCHARGE: 12/23/2016 DISCHARGE SUMMARY/PSYCHIATRIC PROGRESS NOTE This is a late entry 12/23/2016 covers the elements not covered in my initial note. REASON FOR ADMISSION: Please refer to the admission history for details. Briefly, the patient is an 86-year-old female referred to us from [facility], referred by Dr. Sánchez after she was increasingly disruptive, yelling, combative with cares, trying to hit whoever came near her. Started telling people that they could not eat and needed to get out of her house. She had failed outpatient psychiatric interventions with myself and multiple telephone calls with the nursing staff and adjustments in her psychotropics by myself had failed resulting in this referral. SIGNIFICANT FINDINGS AND CLINICAL COURSE: Following admission, the patient was seen daily individually by myself, followed medically per Dr. Brush/Dr. Burger. She was extremely psychotic. She is legally blind, this made presentation even more difficult. She was also very confused. Adjustments were made in her psychotropics. She seemed to respond to a combination of Depakote Sprinkles 125 mg at 9:00 a.m., 1:00 p.m., 5:00 p.m., Nuedexta 1 capsule b.i.d., Wellbutrin-XL 150 mg a day, Zyprexa Zydis p.r.n., Remeron 15 mg at bedtime, Lexapro 10 mg a day, trazodone 50 at bedtime, may repeat x 1 p.r.n. insomnia and Ativan p.r.n. Prior to discharge on 12/23/2016, Temperature 97.7, BP 139/78, pulse 71, respirations 16. REVIEW OF SYSTEMS: Ambulation impaired. Poor vision, bilateral blindness. No CV, , pulmonary, system symptoms on review. MENTAL STATUS EXAM: The patient is oriented to herself. Insight, judgment, recent and remote memory, attention, concentration, fund of knowledge poor, consistent with her diagnosis mentioned in my initial note. No suicidal or homicidal ideation prior to discharge. FINAL DIAGNOSES: Major neurocognitive disorder, Alzheimer, vascular with depression, delusion, behavioral disturbance; anxiety disorder, unspecified; impulse control disorder, unspecified. Rest diagnosis unchanged from admission DISCHARGE MEDICATIONS: Please refer to the [facility]. DISCHARGE INSTRUCTIONS: Outpatient psychiatric and medical followup at the custodial. Time for discharge day management greater than 30 minutes. KISHORE JI MD DR: JAILENE/amanda JOB#: [id number] / [id number]
== END 2016-12-23 12:45 | DRG 884 ==
LOC: ER 18:12 → GEROPSY 21:18
PROVIDERS: ADMIT Psychiatry & Neurology Psychiatry; ATTEND Psychiatry & Neurology Psychiatry
DX: F01.51 Vascular dementia, unspecified severity, with behavioral disturbance (principal); F02.81 Dementia in other diseases classified elsewhere, unspecified severity, with behavioral disturbance; R45.851 Suicidal ideations; G30.9 Alzheimer's disease, unspecified; F63.9 Impulse disorder, unspecified; E78.5 Hyperlipidemia, unspecified; E61.1 Iron deficiency; F41.1 Generalized anxiety disorder; F43.29 Adjustment disorder with other symptoms; H35.30 Unspecified macular degeneration; H54.8 Legal blindness, as defined in USA; I12.9 Hypertensive chronic kidney disease with stage 1 through stage 4 chronic kidney disease, or unspecified chronic kidney disease; N18.3 Chronic kidney disease, stage 3 (moderate); F32.9 Major depressive disorder, single episode, unspecified; H90.5 Unspecified sensorineural hearing loss; Z66 Do not resuscitate; F22 Delusional disorders; G47.00 Insomnia, unspecified; M19.90 Unspecified osteoarthritis, unspecified site; Z91.81 History of falling; Z88.1 Allergy status to other antibiotic agents; Z88.2 Allergy status to sulfonamides; Z88.8 Allergy status to other drugs, medicaments and biological substances
CPT/HCPCS: 36415; 80053; 80061; 80164; 81001; 82306; 82607; 83036; 83540; 83550; 83735; 84436; 84443; 84480; 85027; 86592; 86593; 87086; 96372; J1630; 99285-25